=== PATIENT | male | born 1945 | race Caucasian/White ===

== ENCOUNTER → 2019-05-21 14:19 | Outpatient (BNVA) | payer MEDICARE, SELFPAY | PROVIDERS: Family Provider Nurse Practitioner Family; PCP Family Medicine; Visit Provider Nurse Practitioner Family | DX: N39.0 Urinary tract infection, site not specified (principal) | CPT/HCPCS: 81001; 81003 ==

== ENCOUNTER 2019-06-27 09:36 | Outpatient (RCR) | payer MEDICARE, MEDICAID, SELFPAY | END 2019-06-28 23:59 | disposition home or self-care (01) | LOC: WOUND 09:36 | PROVIDERS: PCP Family Medicine; Visit Provider Surgery | DX: I96 Gangrene, not elsewhere classified (principal); L97.522 Non-pressure chronic ulcer of other part of left foot with fat layer exposed | CPT/HCPCS: 11042; 99203; G0463; L3260 ==

== ENCOUNTER → 2019-07-01 10:21 | Outpatient (BNVA) | payer MEDICARE, MEDICAID, SELFPAY | PROVIDERS: PCP Family Medicine; Visit Provider Surgery | DX: L97.529 Non-pressure chronic ulcer of other part of left foot with unspecified severity (principal); M77.32 Calcaneal spur, left foot | CPT/HCPCS: 73630; 80053; 83036; 85025 ==

== ENCOUNTER 2019-07-25 10:10 | Outpatient (RCR) | payer MEDICARE, MEDICAID, SELFPAY | END 2019-07-29 23:59 | disposition home or self-care (01) | LOC: WOUND 10:10 | PROVIDERS: PCP Family Medicine; Visit Provider Surgery | DX: L97.422 Non-pressure chronic ulcer of left heel and midfoot with fat layer exposed (principal) | CPT/HCPCS: 11042; 97597 ==

== ENCOUNTER 2019-08-08 09:38 | Outpatient (RCR) | payer MEDICARE, MEDICAID, SELFPAY | END 2019-08-28 23:59 | disposition home or self-care (01) | LOC: WOUND 09:38 | PROVIDERS: PCP Family Medicine; Visit Provider Surgery | DX: I96 Gangrene, not elsewhere classified (principal); L97.522 Non-pressure chronic ulcer of other part of left foot with fat layer exposed | CPT/HCPCS: 11042; 99212 ==

== ENCOUNTER 2019-11-04 14:21 | Outpatient (CLI) | payer MEDICARE, MEDICAID, SELFPAY | END 2019-11-04 14:22 | disposition home or self-care (01) | LOC: SPT 14:21 | PROVIDERS: PCP Family Medicine; Visit Provider Podiatrist Foot & Ankle Surgery | DX: Z46.89 Encounter for fitting and adjustment of other specified devices (principal); L97.522 Non-pressure chronic ulcer of other part of left foot with fat layer exposed | CPT/HCPCS: 97760; L4361 ==

== ENCOUNTER 2019-12-11 10:54 | Outpatient (CLI) | payer MEDICARE, MEDICAID, SELFPAY | END 2019-12-11 10:55 | disposition home or self-care (01) | LOC: SPT 10:55 | PROVIDERS: PCP Family Medicine; Visit Provider Podiatrist Foot & Ankle Surgery | DX: Z46.89 Encounter for fitting and adjustment of other specified devices (principal); L97.522 Non-pressure chronic ulcer of other part of left foot with fat layer exposed | CPT/HCPCS: 97760; L4361 ==

== ENCOUNTER → 2020-02-02 13:59 | Outpatient (BNVA) | payer MEDICARE, MEDICAID, SELFPAY | PROVIDERS: PCP Family Medicine; Visit Provider Family Medicine | DX: I10 Essential (primary) hypertension (principal); E78.5 Hyperlipidemia, unspecified; K21.9 Gastro-esophageal reflux disease without esophagitis | CPT/HCPCS: 80053; 80061; 85025 ==

== ENCOUNTER → 2020-07-27 10:34 | Outpatient (BNVA) | payer MEDICARE, MEDICAID, SELFPAY | PROVIDERS: PCP Family Medicine; Visit Provider Family Medicine | DX: E78.5 Hyperlipidemia, unspecified (principal); I10 Essential (primary) hypertension; K21.9 Gastro-esophageal reflux disease without esophagitis; G62.9 Polyneuropathy, unspecified | CPT/HCPCS: 80053; 80061; 84443; 85025 ==

== ENCOUNTER → 2020-11-22 17:04 | Outpatient (BNVA) | payer MEDICARE, MEDICAID, SELFPAY | PROVIDERS: PCP Family Medicine; Visit Provider Family Medicine | DX: R30.0 Dysuria (principal); N39.0 Urinary tract infection, site not specified; N41.0 Acute prostatitis | CPT/HCPCS: 81000 ==

== ENCOUNTER → 2021-02-14 15:53 | Outpatient (BNVA) | payer MEDICARE, MEDICAID, SELFPAY | PROVIDERS: PCP Family Medicine | DX: I10 Essential (primary) hypertension (principal); R30.0 Dysuria; N40.0 Benign prostatic hyperplasia without lower urinary tract symptoms; N41.0 Acute prostatitis; N39.0 Urinary tract infection, site not specified | CPT/HCPCS: 80053; 81000; 85025 ==

== ENCOUNTER 2021-05-30 18:24 | Emergency (ER) | payer MEDICARE, MEDICAID, SELFPAY ==
[2021-05-30 18:38] VITALS: BP 172/89; PULSE 89; RESP 19; TEMP 36.8; O2SAT 97; BMI 24.0
--- NOTE | 2021-05-30 18:55 | CTR_ITS ---
PROCEDURE INFORMATION: Exam: CT Abdomen And Pelvis With Contrast Exam date and time: 05/30/2021 6:55 PM Age: 75 years old Clinical indication: Abdominal pain; Additional info: Groin pain R side, prosthetic testicles TECHNIQUE: Imaging protocol: Computed tomography of the abdomen and pelvis with contrast. Radiation optimization: All CT scans at this facility use at least one of these dose optimization techniques: automated exposure control; mA and/or kV adjustment per patient size (includes targeted exams where dose is matched to clinical indication); or iterative reconstruction. Contrast material: OMNI 300; Contrast volume: 95 ml; Contrast route: INTRAVENOUS (IV); COMPARISON: CR Hip 2-3v LEFT wwo Pelv* [id number] 01/24/2017 2:01 PM RADIATION DOSE METRICS: Total DLP (mGy-cm): 1625.38 FINDINGS: Heart: Partially visualized calcified plaques in the coronary arteries. Liver: Normal. No mass. Gallbladder and bile ducts: Normal. No calcified stones. No ductal dilation. Pancreas: Normal. No ductal dilation. Spleen: Normal. No splenomegaly. Adrenal glands: Normal. No mass. Kidneys and ureters: Several bilateral simple renal cysts measuring no more than 1 cm. Early excretion of renal contrast limits evaluation for nonobstructing stones. Stomach and bowel: There are numerous noninflamed diverticula in the distal colon. Appendix: No evidence of appendicitis. Intraperitoneal space: Unremarkable. No free air. No significant fluid collection. Vasculature: Unremarkable. No abdominal aortic aneurysm. Lymph nodes: Unremarkable. No enlarged lymph nodes. Urinary bladder: Unremarkable as visualized. Reproductive: The testes are partially seen and both have rim calcification. Bones/joints: Chronic lower lumbar degenerative disc disease. Right hip primary osteoarthritis is noted. A right hip moderate joint effusion is of uncertain significance. Soft tissues: Unremarkable. CT/CT abdomen pelvis w con* [id number] IMPRESSION: 1. Right hip joint effusion of uncertain significance. Primary osteoarthritis is present. No fracture or bone destruction. 2. Colonic diverticulosis. 3. Other chronic and incidental findings as described.
--- NOTE | 2021-05-30 19:18 | ED_ITS ---
HPI - General Adult General: Chief complaint: Urogenital-Male Stated complaint: SWOLLEN TESTICLE Time Seen by Provider: 05/30/21 18:29 History of Present Illness: Patient is a 75-year-old male with a history of bilateral testicular prosthesis presenting to the emergency room for evaluation of right-sided groin pain. Patient states the pain has been going on for last 4 days. Patient was at home when he thinks that he was pulled by one of his dogs and then patient strained his right groin. Patient has since then reported right-sided groin pain with testicular swelling. Patient denies any new penile discharge, fever/chills, nausea/vomiting, lower abdominal, type diarrhea, melena or hematochezia. No other focal urinary complaints including hematuria or dysuria. Onset:4 days ago Duration:4 days Location:home Severity:moderate Associated symptoms: Deny chest pain, dyspnea, nausea, rash, palpitations or vomiting Review of Systems Const: Denies: fever(s) or chills Eyes: Denies: change in vision ENMT: Denies: mouth pain Card: Denies: chest pain or palpitations Resp: Denies: dyspnea or non-productive cough GI: Denies: abdominal pain, nausea, vomiting or diarrhea : Reports: other (+R sided groin pain and testicular swelling); Denies: dysuria Musc: Denies: extremity pain Skin/Breast: Denies: rash or new lesions Neuro: Denies: weakness in extremities Psych: Reports: other (Normal mood) Dylan/Lymph: Denies: easy bruising PFSH ED PFSH: Medical History CAD (coronary artery disease) DJD (degenerative joint disease) Dyslipidemia Essential hypertension GERD (gastroesophageal reflux disease) Hammer toe History of amputation of right great toe Neuropathy Psoriasis Family History Father Dementia Mother Cancer BRAIN TUMOR Social History Lives independently: Yes Household members: spouse Marital status: Current occupational status: retired Pets and animals: Yes History of recent travel: No Current gender identity: Male Physical Exam Const: COMMON NORMALS: alert HENMT: COMMON NORMALS: atraumatic HEAD & SCALP: atraumatic MOUTH: moist mucous membranes not abnormal Eye: COMMON NORMALS: EOMs intact bilaterally and conjunctivae normal CONJUNCTIVA: Yes conjunctivae normal Neck/C-Spine: COMMON NORMALS: full ROM and supple Resp: COMMON NORMALS: normal respiratory effort and clear to auscultation bilaterally AUSCULTATION: clear to auscultation bilaterally Cardio: COMMON NORMALS: regular rate RATE: regular rate GI: COMMON NORMALS: Soft to palpation and non-tender PALPATION: Yes Soft to palpation : OTHER: +R groin tenderness to palpation, no visible testicular swelling, no erythema. Extremity: COMMON NORMALS: full ROM Neuro: SENSORIUM/ORIENTATION: Yes alert MOTOR EXAM: No Abnormal motor strength present and Other motor observations present (no focal motor deficits) Psych: COMMON NORMALS: speech normal SPEECH: Yes normal speech MOOD & AFFECT: Yes euthymic mood Course Vital Signs: Vital signs: Vital Signs Temperature 98.2 F 05/30/21 18:38 Pulse Rate 89 05/30/21 18:38 Respiratory Rate 22 H 05/30/21 19:46 Blood Pressure 172/89 05/30/21 18:38 Pulse Oximetry 97 05/30/21 18:38 MDM - General Adult Medical Decision Making 75-year-old male with history of bilateral testicular prosthesis presenting to the emergency room for evaluation of right groin pain x4 days. Exam, patient has mild right pelvic tenderness. No visible hernia. No testicular erythema observed. Workup: CBC, CMP, lipase, UA, CT abdomen pelvis Leukocytosis, UA clear for any acute findings. CT abdomen+pelvis showed right hip effusion. In the setting of no fever, no leukocytosis, perfect range of motion of the right hip, no suspicion that this is septic joint. Pain is control led with medication in the ED. Rx: Tylenol, lidocaine patch, menthol as needed pain I have given patient follow up with our leather case finisher to be seen by our outpatient Urology for pain. Patient aware of a call from our leather case finisher to schedule for appointment(s) and verbalizes understanding of the importance of following up. Disposition: Discharge. Patient counseled regarding diagnostic impression, treatment plan. Patient given ED strict return precautions to return for continuation, worsening, or development of new symptoms. Instructed to f/u w/ PCP and Urology regarding symptoms today. Patient verbalized understanding. Lab Data : 05/30/21 20:04 05/30/21 20:04 Radiology Impressions Abdomen/Pelvis CT 05/30/21 18:55 IMPRESSION: 1. Right hip joint effusion of uncertain significance. Primary osteoarthritis is present. No fracture or bone destruction. 2. Colonic diverticulosis. 3. Other chronic and incidental findings as described. Laboratory Results WBC 7.4 10^3/uL (4.0-10.0) 05/30/21 20:04 RBC 3.87 10^6/uL (4.1-5.3) L 05/30/21 20:04 Hgb 10.9 g/dL (11.7-16.6) L 05/30/21 20:04 Hct 32.4 % (42.0-52.0) L 05/30/21 20:04 MCV 83.7 fl (80-94) 05/30/21 20:04 MCH 28.2 pg (28.0-34.0) 05/30/21 20:04 MCHC 33.6 g/dL (30.0-36.0) 05/30/21 20:04 RDW 15.0 % (12.1-15.1) 05/30/21 20:04 Plt Count 250 10^3/cmm (130-400) 05/30/21 20:04 MPV 9.9 fL (7.4-10.4) 05/30/21 20:04 Neut % (Auto) 75.9 % 05/30/21 20:04 Lymph % (Auto) 12.5 % 05/30/21 20:04 [place] % (Auto) 10.6 % 05/30/21 20:04 Eos % (Auto) 0.1 % 05/30/21 20:04 Baso % (Auto) 0.5 % 05/30/21 20:04 Neut # (Auto) 5.57 10^3/uL (1.8-7.7) 05/30/21 20:04 Lymph # (Auto) 0.9 10^3/uL (0.8-4.8) 05/30/21 20:04 [place] # (Auto) 0.8 10^3/uL (0.2-0.9) 05/30/21 20:04 Eos # (Auto) 0.0 10^3/uL (0.0-0.8) 05/30/21 20:04 Baso # (Auto) 0.0 10^3/uL (0.0-0.1) 05/30/21 20:04 Nucleated RBC % (auto) 0 % 05/30/21 20:04 Nucleated RBCs # 0.0 /100WBC 05/30/21 20:04 Sodium 122 mmol/L (136-145) L 05/30/21 20:04 Sodium Cancelled 05/30/21 20:04 Potassium 5.1 mmol/L (3.5-5.1) 05/30/21 20:04 Potassium Cancelled 05/30/21 20:04 Chloride 94 mmol/L (98-107) L 05/30/21 20:04 Chloride Cancelled 05/30/21 20:04 Carbon Dioxide 20 mmol/L (22-29) L 05/30/21 20:04 Carbon Dioxide Cancelled 05/30/21 20:04 Anion Gap 13.1 (5-19) 05/30/21 20:04 Anion Gap Cancelled 05/30/21 20:04 BUN 22 mg/dL (8-23) 05/30/21 20:04 BUN Cancelled 05/30/21 20:04 Creatinine 1.0 mg/dL (0.7-1.2) 05/30/21 20:04 Creatinine Cancelled 05/30/21 20:04 GFR Calculation Cancelled 05/30/21 20:04 GFR Calculation Not Reportable 05/30/21 20:04 Glucose 93 mg/dL (65-115) 05/30/21 20:04 Glucose Cancelled 05/30/21 20:04 Calculated Osmolality 257 mOsm/kg (285-295) L 05/30/21 20:04 Calculated Osmolality Cancelled 05/30/21 20:04 Calcium 8.6 mg/dL (8.5-10.5) 05/30/21 20:04 Calcium Cancelled 05/30/21 20:04 Total Bilirubin 0.4 mg/dL (0.15-1.2) 05/30/21 20:04 Total Bilirubin Cancelled 05/30/21 20:04 AST 16 U/L (0-40) 05/30/21 20:04 AST Cancelled 05/30/21 20:04 ALT 14 U/L (0-41) 05/30/21 20:04 ALT Cancelled 05/30/21 20:04 Alkaline Phosphatase 90 IU/L (40-130) 05/30/21 20:04 Alkaline Phosphatase Cancelled 05/30/21 20:04 Total Protein 6.4 g/dL (6.6-8.7) L 05/30/21 20:04 Total Protein Cancelled 05/30/21 20:04 Albumin 3.7 g/dL (3.5-5.2) 05/30/21 20:04 Albumin Cancelled 05/30/21 20:04 Globulin 2.7 g/dL (1.3-4.6) 05/30/21 20:04 Globulin Cancelled 05/30/21 20:04 Lipase 24 U/L (13-60) 05/30/21 20:04 Lipase Cancelled 05/30/21 20:04 Urine Color Yellow (Yellow) 05/30/21 19:47 Urine Appearance Clear (CLEAR) 05/30/21 19:47 Urine pH 7 (5-7) 05/30/21 19:47 Ur Specific [place] 1.015 (1.005-1.030) 05/30/21 19:47 Urine Protein Neg (Negative) 05/30/21 19:47 Urine Glucose (UA) Norm (Normal) 05/30/21 19:47 Urine Ketones Negative (Negative) 05/30/21 19:47 Urine Blood Neg (Negative) 05/30/21 19:47 Urine Nitrate Negative (Negative) 05/30/21 19:47 Urine Bilirubin Neg (Negative) 05/30/21 19:47 Urine Urobilinogen Norm mg/dL (Negative) 05/30/21 19:47 Ur Leukocyte Esterase Negative (Negative) 05/30/21 19:47 Imaging Data Other Imaging: Radiologist's impression: [address] [address] [address] Scan Report Signed Patient: Rigo Santiago Unit #: [id number] : 1945 Age/Sex: 75 / M ADM Date: 05/30/21 Loc: ER Room/Bed: Attending Dr: Ordering Provider/Ordering MD: Maria T Mosher MD Date of Service: 05/30/21 Procedure(s): CT abdomen pelvis w con* [id number] Accession Number(s): [id number] Report Number: [id number] PROCEDURE INFORMATION: Exam: CT Abdomen And Pelvis With Contrast Exam date and time: 05/30/2021 6:55 PM Age: 75 years old Clinical indication: Abdominal pain; Additional info: Groin pain R side, prosthetic testicles TECHNIQUE: Imaging protocol: Computed tomography of the abdomen and pelvis with contrast. Radiation optimization: All CT scans at this facility use at least one of these dose optimization techniques: automated exposure control; mA and/or kV adjustment per patient size (includes targeted exams where dose is matched to clinical indication); or iterative reconstruction. Contrast material: OMNI 300; Contrast volume: 95 ml; Contrast route: INTRAVENOUS (IV);? COMPARISON: CR Hip 2-3v LEFT wwo Pelv* [id number] 01/24/2017 2:01 PM RADIATION DOSE METRICS: Total DLP (mGy-cm): 1625.38 FINDINGS: Heart: Partially visualized calcified plaques in the coronary arteries. Liver: Normal. No mass. Gallbladder and bile ducts: Normal. No calcified stones. No ductal dilation. Pancreas: Normal. No ductal dilation. Spleen: Normal. No splenomegaly. Adrenal glands: Normal. No mass. Kidneys and ureters: Several bilateral simple renal cysts measuring no more than 1 cm. Early excretion of renal contrast limits evaluation for nonobstructing stones. Stomach and bowel: There are numerous noninflamed diverticula in the distal colon. Appendix: No evidence of appendicitis. Intraperitoneal space: Unremarkable. No free air. No significant fluid collection. Vasculature: Unremarkable. No abdominal aortic aneurysm. Lymph nodes: Unremarkable. No enlarged lymph nodes. Urinary bladder: Unremarkable as visualized. Reproductive: The testes are partially seen and both have rim calcification. Bones/joints: Chronic lower lumbar degenerative disc disease. Right hip primary osteoarthritis is noted. A right hip moderate joint effusion is of uncertain significance. Soft tissues: Unremarkable. CT/CT abdomen pelvis w con* [id number] IMPRESSION: 1. Right hip joint effusion of uncertain significance. Primary osteoarthritis is present. No fracture or bone destruction. 2. Colonic diverticulosis. 3. Other chronic and incidental findings as described. ? Dictated By: Rafael Almonte MD Signed By: Rafael Almonte MD Signed Date/Time: 05/30/21 8327 DD/ 271 Discharge Plan Discharge Patient Disposition: Home Clinical Impression: Groin pain Condition: Stable Prescriptions: New acetaminophen 500 mg tablet 500 mg PO Q6H PRN (Reason: pain) 5 Days Qty: 20 0RF lidocaine 5 % adhesive patch,medicated 1 patch topical DAILY PRN (Reason: pain) 10 Days Qty: 10 0RF Rx Instructions: leave on most painful area for up to 12 hrs Biofreeze (menthol) 5 % gel 1 ea topical BID PRN (Reason: pain) 10 Days Qty: 1 0RF No Action (DME) Diabetic Shoes See Rx Instructions .ROUTE .MEDSUPPLY Qty: 1 0RF Rx Instructions: As directed tamsulosin [Flomax] 0.4 mg capsule 0.4 mg PO DAILY 30 Days Qty: 30 0RF aspirin 325 mg tablet 325 mg PO BID 0RF atorvastatin 40 mg tablet See Rx Instructions .ROUTE .COMPLEX Qty: 60 4RF Dose Instruction: TAKE ONE TABLET BY MOUTH EVERY DAY Rx Instructions: TAKE ONE TABLET BY MOUTH EVERY DAY isosorbide mononitrate 30 mg tablet extended release 24 hr See Rx Instructions .ROUTE .COMPLEX Qty: 30 3RF Dose Instruction: TAKE ONE TABLET BY MOUTH EVERY DAY Rx Instructions: TAKE ONE TABLET BY MOUTH EVERY DAY loratadine [Allergy Relief (loratadine)] 10 mg tablet 10 mg PO DAILY Qty: 30 4RF omeprazole 20 mg capsule,delayed release(DR/EC) 20 mg PO DAILY Qty: 90 4RF Rx Instructions: REPLACES RANITIDINE metoprolol tartrate 50 mg tablet See Rx Instructions .ROUTE .COMPLEX Qty: 60 5RF Dose Instruction: TAKE ONE TABLET BY MOUTH TWICE DAILY Rx Instructions: TAKE ONE TABLET BY MOUTH TWICE DAILY amlodipine 2.5 mg tablet See Rx Instructions .ROUTE .COMPLEX Qty: 30 5RF Dose Instruction: TAKE ONE TABLET BY MOUTH EVERY DAY Rx Instructions: TAKE ONE TABLET BY MOUTH EVERY DAY lisinopril 20 mg tablet See Rx Instructions .ROUTE .COMPLEX Qty: 60 5RF Dose Instruction: TAKE ONE TABLET BY MOUTH TWICE DAILY Rx Instructions: TAKE ONE TABLET BY MOUTH TWICE DAILY gabapentin 300 mg capsule See Rx Instructions .ROUTE .COMPLEX Qty: 90 2RF Dose Instruction: TAKE ONE CAPSULE BY MOUTH THREE TIMES DAILY Rx Instructions: TAKE ONE CAPSULE BY MOUTH THREE TIMES DAILY tizanidine 4 mg tablet See Rx Instructions .ROUTE .COMPLEX Qty: 60 2RF Dose Instruction: TAKE ONE TABLET BY MOUTH TWICE DAILY NEEDED FOR muscle spasiticy Rx Instructions: TAKE ONE TABLET BY MOUTH TWICE DAILY NEEDED FOR muscle spasiticy Discharge Orders: Discharge ED (Routine); Ordered 05/30/21 Ordered By: Maria T Mosher Referrals: Mayra Powell MD [Primary Care Provider] - Discharge Diet: Advance as tolerated Discharge Activity: Increase activity as tolerated Patient Instructions: Groin Pain (ED) Activity Restrictions/Additional Instructions: Come back to the emergency room have any fever chills, new pain or drainage, worsening groin pain, redness, or any new or concerning complaints. Our leather case finisher will have you follow-up with Dr. Lobo in the next few days for groin pain. You would be expected to have a phone call with our leather case finisher who will put you on the schedule. Coding Level of Care Code ED Ambulatory Care Coordinator for Debra Fwalonzo Exam Comprehensive
[2021-05-30 19:46] VITALS: RESP 22
[2021-05-30] MEDS: acetaminophen 500 mg Tablet PO (19:46)
[2021-05-30] MEDS: morphine 4 mg/mL SDV 1 mL IVP (19:46)
[2021-05-30 19:52] LABS: Add Urine Microscopic? NO; Charge for UA Resulting for Rev
[2021-05-30 19:53] LABS: Bilirubin Urine Neg (Negative); Blood Urine Neg (Negative); Glucose Urine UA Norm (Normal); Ketones Urine Negative (Negative); Leukocyte Esterase Urine Negative (Negative); Nitrate Urine Negative (Negative); Protein Urine Neg (Negative); Specific Gravity, Urine 1.015 (1.005-1.030); Urine Appearance Clear (CLEAR); Urine Color Yellow (Yellow); Urobilinogen Urine Norm (Negative); pH Urine 7 (5-7)
[2021-05-30 20:16] LABS: Basophils % 0.5 %; Eosinophils % 0.1 %; Hematocrit 32.4 % (42.0-52.0); Hemoglobin 10.9 g/dL (11.7-16.6); Lymphocytes # 0.9 10^3/uL (0.8-4.8); Lymphocytes % 12.5 %; Mean Corpuscular HGB Conc 33.6 g/dL (30.0-36.0); Mean Corpuscular Hemoglobin 28.2 pg (28.0-34.0); Mean Corpuscular Volume 83.7 fl (80-94); Mean Platelet Volume 9.9 fL (7.4-10.4); Monocytes # 0.8 10^3/uL (0.2-0.9); Monocytes % 10.6 %; Neutrophils # 5.57 10^3/uL (1.8-7.7); Neutrophils % 75.9 %; Nucleated Red Blood Cells % 0 %; Platelet Count 250 10^3/cmm (130-400); Red Blood Count 3.87 10^6/uL (4.1-5.3); White Blood Count 7.4 10^3/uL (4.0-10.0)
[2021-05-30 21:55] LABS: Alanine Aminotransferase 14 U/L (0-41); Albumin Level 3.7 g/dL (3.5-5.2); Alkaline Phosphatase 90 IU/L (40-130); Anion Gap 13.1 (5-19); Aspartate Amino Transferase 16 U/L (0-40); Blood Urea Nitrogen 22 mg/dL (8-23); Calcium 8.6 mg/dL (8.5-10.5); Carbon Dioxide 20 mmol/L (22-29); Chloride 94 mmol/L (98-107); Globulin 2.7 g/dL (1.3-4.6); Glucose 93 mg/dL (65-115); Lipase 24 U/L (13-60); Osmolality Calculated 257 mOsm/kg (285-295); Potassium 5.1 mmol/L (3.5-5.1); Sodium 122 mmol/L (136-145); Total Bilirubin 0.4 mg/dL (0.15-1.2); Total Protein 6.4 g/dL (6.6-8.7)
[2021-05-30] MEDS: iohexol 300 mg/mL 100 mL Btl IV (22:12)
--- NOTE | 2021-05-31 07:57 | DCPLANNER ---
Addendum entered by Kyara Delgado 06/24/21 11:49: Patient had a follow up appointment scheduled for 06.21.[address] Lobo - patient did not attend appointment. Addendum entered by Kyara Delgado 06/10/21 07:44: Patient has a followup appointment scheduled for Monday, June 21, 2021 at 1:[address] Lobo. Clinic will call patient with appointment information. Original Note: global sourcing manager had message to schedule a follow up appointment for patient with Dr. Lobo. global sourcing manager emailed patients information to Antonio Thompson at the office of Dr. Lobo. Patients information will be printed and reviewed. Clinic will call patient with appointment information.
== END 2021-05-30 23:17 | disposition home or self-care (01) ==
PROVIDERS: Emergency Provider Emergency Medicine; PCP Family Medicine
DX: R10.31 Right lower quadrant pain (principal); I25.10 Atherosclerotic heart disease of native coronary artery without angina pectoris; E78.5 Hyperlipidemia, unspecified; I10 Essential (primary) hypertension; Z96.89 Presence of other specified functional implants; Z79.82 Long term (current) use of aspirin
CPT/HCPCS: 36415; 74177; 80053; 81003; 83690; 85025; 96374; 99284; J2270; Q9967

== ENCOUNTER → 2021-10-06 11:28 | Outpatient (BNVA) | payer MEDICARE, MEDICAID, SELFPAY | PROVIDERS: PCP Family Medicine; Visit Provider Nurse Practitioner Family | DX: M25.562 Pain in left knee (principal); M25.561 Pain in right knee; F17.200 Nicotine dependence, unspecified, uncomplicated; I10 Essential (primary) hypertension; E78.5 Hyperlipidemia, unspecified; R53.83 Other fatigue; Z79.899 Other long term (current) drug therapy | CPT/HCPCS: 71047; 73562; 80053; 80061; 82607; 82746; 83036; 85651; 86140; 86200; 86431; 86705; 86706; 86709; 86803; 87340; G0103 ==

== ENCOUNTER → 2021-10-07 08:25 | Outpatient (BNVA) | payer MEDICARE, MEDICAID, SELFPAY | PROVIDERS: PCP Family Medicine; Visit Provider Nurse Practitioner Family | DX: D64.9 Anemia, unspecified (principal); F10.20 Alcohol dependence, uncomplicated | CPT/HCPCS: 82607; 82746 ==

== ENCOUNTER 2021-10-09 12:07 | Emergency (ER) | payer MEDICARE, MEDICAID, SELFPAY ==
[2021-10-09] VITALS (8 sets, daily range): BP systolic 79–146; BP diastolic 33–87; PULSE 89–95; RESP 16–23; TEMP 37.4; O2SAT 97–100; BMI 24.8
--- NOTE | 2021-10-09 12:17 | XRR_ITS ---
PROCEDURE INFORMATION: Exam: XR Right Knee Exam date and time: 10/09/2021 12:50 PM Age: 75 years old Clinical indication: Injury or trauma; Fall; Blunt trauma; Knee; Right; Additional info: Knee pain TECHNIQUE: Imaging protocol: XR Right knee. Views: 3 views. COMPARISON: CR XR knee RT 3V* [id number] 10/06/2021 11:47 AM FINDINGS: Bones/joints: A large joint effusion is present with fluid in the suprapatellar bursa. No fracture, dislocation or other acute bone or joint abnormality. Moderate degenerative changes are present with osteophytes sclerosis and joint space narrowing. Soft tissues: There is soft tissue swelling anterior to the knee. XR/XR knee RT 3V* [id number] IMPRESSION: 1. Joint effusion. 2. No acute bony abnormality.
--- NOTE | 2021-10-09 13:08 | W.ED.FALL ---
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 He apparently had gotten out of bed and was transferring to his wheelchair and was turning to sit in his wheelchair and apparently had a syncopal episode and fell to the floor. He states he has pain in his right knee. He did not hit his head or suffer any other injury. He is apparently started on a new medication recently and has been making him dizzy. He apparently also takes antihypertensives. There has been a question of having low blood pressure over the last few weeks. He denies any chest pain shortness of breath etc. He has drank part of a couple coffee today but not much else in the way of liquids or solids. He has not had any nausea vomiting or diarrhea or recent illness. There is no chest pain palpitations etc. as a prodrome to his current event. At triage patient was noted to have a low blood pressure and therefore was transitioned to the main ED. complaint: fall Fall from: standing Fall witnessed: no Place fall occurred: home Loss of consciousness: Seconds Length of LOC: second(s) Location of injury - extremities: Right: knee Severity: moderate Quality: aching Associated symptoms-after fall: Reports no associated symptoms; Denies abdominal pain, chest pain, headache(s) or neck pain Review of Systems Const: Denies: fever(s) or chills Eyes: Denies: change in vision or blurry vision ENMT: Denies: throat pain or odynophagia Card: Denies: chest pain, palpitations, irregular heart rhythm or edema Resp: Denies: dyspnea, productive cough or non-productive cough GI: Denies: abdominal pain, nausea or vomiting : Denies: flank pain, difficulty urinating or dysuria Musc: Reports: joint pain; Denies: neck pain or back pain Skin/Breast: Reports: non-healing lesions (Left plantar foot) Neuro: Reports: numbness in extremities and dizziness; Denies: headache(s) or weakness in extremities Psych: Denies: anxiety or depression Endo: Denies: polyuria or polydipsia Dylan/Lymph: Denies: easy bruising or easy bleeding PFSH ED PFSH: Medical History (Updated 10/09/21 @ 16:26 by Neftali Wright DO) CAD (coronary artery disease) DJD (degenerative joint disease) Dyslipidemia Essential hypertension GERD (gastroesophageal reflux disease) Hammer toe History of amputation of right great toe Neuropathy Psoriasis Family History Father Dementia Mother Cancer BRAIN TUMOR Social History Smoking and tobacco status: never smoked Lives independently: Yes Household members: spouse Marital status: Current occupational status: retired Pets and animals: Yes History of recent travel: No Current gender identity: Male Physical Exam Narrative: EXAM NARRATIVE: Patient is alert in no acute distress and interactive. Const: COMMON NORMALS: no acute distress, patient oriented x3, no limitations and alert HENMT: COMMON NORMALS: normocephalic, atraumatic, Normal nasal mucous membranes and turbinates present, moist oral mucous membranes and oropharynx normal HEAD & SCALP: normocephalic and atraumatic FACE & SINUS: normal facial exam NOSE: Normal nasal mucous membranes and turbinates present Eye: COMMON NORMALS: Equal, round and reactive pupils present, EOMs intact bilaterally and conjunctivae normal CONJUNCTIVA: Yes conjunctivae normal PUPIL: Yes Equal, round and reactive pupils present Neck/C-Spine: COMMON NORMALS: no lymphadenopathy, no JVD and No carotid bruits CERVICAL SPINE: Yes cervical ROM normal, Yes normal cervical lordosis, No step off deformity, No Paracervical muscle tenderness, No Paracervical spasm and No Trapezius muscle tenderness OTHER: He is able to range his head neck 45 degrees left and right 15 degrees extension and flexion without any difficulty or pain. No midline tenderness. No step-off. Chest: COMMONS NORMALS: normal inspection of the chest and normal palpation of entire chest wall Resp: COMMON NORMALS: normal respiratory effort, No retractions, No use of accessory muscles and clear to auscultation bilaterally AUSCULTATION: clear to auscultation bilaterally Cardio: COMMON NORMALS: no JVD, regular rate, regular rhythm, No murmurs present (Cardio) and Peripheral pulses 2+ throughout RATE: regular rate RHYTHM: regular rhythm PERIPHERAL PULSES: Peripheral pulses 2+ throughout GI: COMMON NORMALS: Normal to inspection, nondistended, normoactive bowel sounds present, Soft to palpation and non-tender PALPATION: Yes Soft to palpation : COMMON NORMALS: Yes no CVA tenderness BLADDER/KIDNEY EXAM: Yes no CVA tenderness Back/Pelvis: COMMON NORMALS: no CVA tenderness, thoracic and lumbar spine normal to inspection, no thoracic nor lumbar tenderness and thoraco-lumbar ROM normal Extremity: NARRATIVE EXTREMITY EXAM: Patient's extremity examination is unremarkable for both upper extremities there is no deformity and he has full range of motion without tenderness. His right lower extremity is remarkable for some swelling of the soft tissues surrounding the right knee. He has tenderness to palpation over the lateral portion of the right knee. He has intact patellar tendon function and quadricep tendon function. The remainder of the right lower extremity is remarkable only that he has a great toe amputation. His left lower extremity reveals no limitations in range of motion no tenderness. He does have a possibly 2 cm ulcer with a clear base at the plantar surface overlying the metatarsal head of the left foot. There is no proximal lymphangitis or lymphadenopathy. Neuro: COMMON NORMALS: patient oriented x3, moves all extremities and no focal motor deficits SENSORIUM/ORIENTATION: Yes alert SPEECH: speech normal SENSORY EXAM: Yes extremities (Decrease sensation both feet and ankle region.) Psych: COMMON NORMALS: mental status grossly normal and Normal thought process present THOUGHT PROCESS: Normal thought process present Skin: COMMON NORMALS: no rashes or lesions noted and turgor normal NARRATIVE SKIN EXAM: Left foot plantar ulcer as noted in extremity examination. GENERAL SKIN EXAM: no rashes or lesions noted and turgor normal Course Reevaluation(s): Reevaluation #1: The patient's vital signs been stable after liter of fluids. He has not had any other subjective symptoms. His work-up here reveals no evidence of fracture of the femur or hip or knee. He likely has some internal derangement or strain due to his fall but certainly no evidence of any issue at this time that needs immediate care. We will place him in a knee immobilizer for comfort and advised him to remove that frequently throughout the day and as it improves. We have also noted that his anemia has been present although it is seemingly a little more anemic today than in the past. He denies any melena bright red blood or etc. I advised him that he needs to get that rechecked in his primary care clinic and consider additional work-up to include colonoscopy etc. Both he and his survey questionnaire designer acknowledge this. His sodium is chronically low. I think this is likely a factor in combination with his multiple antihypertensives for his weakness. In addition to his anemia. In light of that I think we will discontinue his lisinopril temporarily and continue on his amlodipine and metoprolol as well as tamsulosin. We will also contact case management for wound care follow-up for his plantar ulcer. Both he and his survey questionnaire designer acknowledged our discussion. Stable for discharge at this time. Time: 16:23 Vital Signs: Vital signs: Vital Signs Temperature 99.4 F 10/09/21 12:32 Pulse Rate 93 10/09/21 15:44 Respiratory Rate 21 H 10/09/21 15:44 Blood Pressure 144/80 10/09/21 15:44 Pulse Oximetry 97 10/09/21 15:44 MDM - Fall Medical Decision Making Patient presents to our emergency department with a history of a fall with right knee injury and notable hypotension at triage. He was given IV fluids and evaluated in the emergency department. No evidence of fracture on the right lower extremity noted. He likely has a knee strain best or at worst possible meniscal tear etc. He will need to be followed up. He also has other chronic issues such as anemia, hyponatremia, a left plantar ulcer. No evidence of acute blood loss or other acute change at this time but will drop off his lisinopril as I think his AAA and antihypertensive therapy may be contributing to his weakness and lightheadedness and low blood pressure. Medical Records I reviewed the patient's medical records. Lab Data I reviewed the patient's lab results. : 10/09/21 13:05 10/09/21 13:05 Radiology Impressions Knee X-Ray 10/09/21 12:17 IMPRESSION: 1. Joint effusion. 2. No acute bony abnormality. Femur X-Ray 10/09/21 15:10 IMPRESSION: No acute findings. Laboratory Results WBC 8.5 10^3/uL (4.0-10.0) 10/09/21 13:05 RBC 3.65 10^6/uL (4.1-5.3) L 10/09/21 13:05 Hgb 9.5 g/dL (11.7-16.6) L 10/09/21 13:05 Hct 28.6 % (42.0-52.0) L 10/09/21 13:05 MCV 78.4 fl (80-94) L 10/09/21 13:05 MCH 26.0 pg (28.0-34.0) L 10/09/21 13:05 MCHC 33.2 g/dL (30.0-36.0) 10/09/21 13:05 RDW 17.0 % (12.1-15.1) H 10/09/21 13:05 Plt Count 230 10^3/cmm (130-400) 10/09/21 13:05 MPV 11.4 fL (7.4-10.4) H 10/09/21 13:05 Neut % (Auto) 86.6 % 10/09/21 13:05 Lymph % (Auto) 5.7 % 10/09/21 13:05 [place] % (Auto) 7.1 % 10/09/21 13:05 Eos % (Auto) 0.0 % 10/09/21 13:05 Baso % (Auto) 0.2 % 10/09/21 13:05 Neut # (Auto) 7.33 10^3/uL (1.8-7.7) 10/09/21 13:05 Lymph # (Auto) 0.5 10^3/uL (0.8-4.8) L 10/09/21 13:05 [place] # (Auto) 0.6 10^3/uL (0.2-0.9) 10/09/21 13:05 Eos # (Auto) 0.0 10^3/uL (0.0-0.8) 10/09/21 13:05 Baso # (Auto) 0.0 10^3/uL (0.0-0.1) 10/09/21 13:05 Nucleated RBC % (auto) 0 % 10/09/21 13:05 Nucleated RBCs # 0.0 /100WBC 10/09/21 13:05 Sodium 124 mmol/L (136-145) L 10/09/21 13:05 Potassium 4.8 mmol/L (3.5-5.1) 10/09/21 13:05 Chloride 94 mmol/L (98-107) L 10/09/21 13:05 Carbon Dioxide 17 mmol/L (22-29) L 10/09/21 13:05 Anion Gap 17.8 (5-19) 10/09/21 13:05 BUN 22 mg/dL (8-23) 10/09/21 13:05 Creatinine 1.1 mg/dL (0.7-1.2) 10/09/21 13:05 GFR Calculation Not Reportable 10/09/21 13:05 Glucose 101 mg/dL (65-115) 10/09/21 13:05 Calculated Osmolality 261 mOsm/kg (285-295) L 10/09/21 13:05 Calcium 8.9 mg/dL (8.5-10.5) 10/09/21 13:05 Total Bilirubin 0.7 mg/dL (0.15-1.2) 10/09/21 13:05 AST 16 U/L (0-40) 10/09/21 13:05 ALT 14 U/L (0-41) 10/09/21 13:05 Alkaline Phosphatase 80 IU/L (40-130) 10/09/21 13:05 Total Protein 6.2 g/dL (6.6-8.7) L 10/09/21 13:05 Albumin 3.7 g/dL (3.5-5.2) 10/09/21 13:05 Globulin 2.5 g/dL (1.3-4.6) 10/09/21 13:05 EKG Data EKG 1: I personally reviewed and interpreted this EKG as follows: Interpretation: Resting EKG reveals a ventricular rate of 78 bpm. Consistent with normal sinus rhythm. He has a normal NV interval. Normal QRS duration. Normal QTC. [place] are normal. No evidence of acute ST-T wave changes. He does have baseline irritability most pronounced in limb lead II and I. Discharge Plan Discharge Patient Disposition: Home Clinical Impression: Left knee injury, Foot ulcer, left, Hyponatremia, Anemia Condition: Stable Prescriptions: No Action (DME) Diabetic Shoes See Rx Instructions .ROUTE .MEDSUPPLY Qty: 1 0RF Rx Instructions: As directed aspirin 325 mg tablet 325 mg PO BID 0RF amlodipine 2.5 mg tablet 2.5 mg PO DAILY 90 Days Qty: 90 1RF atorvastatin 40 mg tablet 40 mg PO DAILY 90 Days Qty: 90 1RF gabapentin 300 mg capsule 300 mg PO TID 90 Days Qty: 270 1RF isosorbide mononitrate 30 mg tablet extended release 24 hr 30 mg PO DAILY 90 Days Qty: 90 1RF lisinopril 20 mg tablet 20 mg PO DAILY 90 Days Qty: 90 1RF loratadine [Allergy Relief (loratadine)] 10 mg tablet 10 mg PO DAILY 90 Days Qty: 90 1RF metoprolol tartrate 50 mg tablet 50 mg PO DAILY 90 Days Qty: 90 1RF omeprazole 20 mg capsule,delayed release(DR/EC) 20 mg PO DAILY 90 Days Qty: 90 1RF tamsulosin [Flomax] 0.4 mg capsule 0.4 mg PO DAILY 90 Days Qty: 90 1RF tizanidine 4 mg tablet 4 mg PO TID PRN (Reason: muscle spasticity) 90 Days Qty: 270 1RF sodium chloride 1 gram tablet 1,000 mg PO DAILY 90 Days Qty: 90 1RF Discharge Orders: Discharge ED (Routine); Ordered 10/09/21 Ordered By: Neftali Wright Discharge Diet: Usual diet and Regular Discharge Activity: Increase activity as tolerated Patient Instructions: Opioid Safety Activity Restrictions/Additional Instructions: Wear the knee immobilizer throughout the day to help with support of your right knee. Ensure that you are using a walker or wheelchair for your mobility. You may remove the knee immobilizer at night and then discontinue it as your right knee feels better. Case management will contact you regarding orthopedic follow-up. Do not take your lisinopril until you see your doctor in follow-up and have all your medications reviewed. Make sure that you drink at least 1 quart of water a day in addition to all the other fluids. You may salt your food at the table. Call your doctor for a follow-up evaluation in 2 weeks for repeat blood count and other blood work. Case management will also contact you regarding follow-up for wound care. If you have any new persistent or worsening symptoms return to this emergency department at any time. Coding Level of Care Code ED Strain Technician for Debra Monroe Exam Comprehensive
[2021-10-09 13:18] LABS: Basophils % 0.2 %; Hematocrit 28.6 % (42.0-52.0); Hemoglobin 9.5 g/dL (11.7-16.6); Lymphocytes # 0.5 10^3/uL (0.8-4.8); Lymphocytes % 5.7 %; Mean Corpuscular HGB Conc 33.2 g/dL (30.0-36.0); Mean Corpuscular Volume 78.4 fl (80-94); Mean Platelet Volume 11.4 fL (7.4-10.4); Monocytes # 0.6 10^3/uL (0.2-0.9); Monocytes % 7.1 %; Neutrophils # 7.33 10^3/uL (1.8-7.7); Neutrophils % 86.6 %; Nucleated Red Blood Cells % 0 %; Platelet Count 230 10^3/cmm (130-400); Red Blood Count 3.65 10^6/uL (4.1-5.3); White Blood Count 8.5 10^3/uL (4.0-10.0)
[2021-10-09] MEDS: sodium chloride 0.9% 1,000 ML 999 ML IV (13:30)
--- NOTE | 2021-10-09 13:32 | PC.NURSE ---
PT states he fell on his knees last night at home. PT states it happened again this morning. PT states he was able to call family to bring him to the ED. IV started and fluids running.
--- NOTE | 2021-10-09 13:35 | PC.NURSE ---
PT placed on continuous NIBP, SpO2, and CM
[2021-10-09 13:41] LABS: Alanine Aminotransferase 14 U/L (0-41); Albumin Level 3.7 g/dL (3.5-5.2); Alkaline Phosphatase 80 IU/L (40-130); Anion Gap 17.8 (5-19); Aspartate Amino Transferase 16 U/L (0-40); Blood Urea Nitrogen 22 mg/dL (8-23); Calcium 8.9 mg/dL (8.5-10.5); Carbon Dioxide 17 mmol/L (22-29); Chloride 94 mmol/L (98-107); Globulin 2.5 g/dL (1.3-4.6); Glucose 101 mg/dL (65-115); Osmolality Calculated 261 mOsm/kg (285-295); Potassium 4.8 mmol/L (3.5-5.1); Sodium 124 mmol/L (136-145); Total Bilirubin 0.7 mg/dL (0.15-1.2); Total Protein 6.2 g/dL (6.6-8.7)
[2021-10-09] MEDS: fentaNYL 50 mcg/mL INJ 2mL 25 MCG IVP (13:50)
--- NOTE | 2021-10-09 15:10 | XRR_ITS ---
PROCEDURE INFORMATION: Exam: XR Right Femur Exam date and time: 10/09/2021 3:19 PM Age: 75 years old Clinical indication: Pain; Thigh; Right; Additional info: Fall and pain in upper leg TECHNIQUE: Imaging protocol: XR Right femur. Views: 2 views. COMPARISON: CR (LOW EXM, ) 10/09/2021 12:50 PM FINDINGS: Bones/joints: No acute fracture. Severe DJD of the right hip and moderate DJD of the knee most conspicuous within the lateral compartment. Soft tissues: Unremarkable. XR/XR femur RT min 2V* [id number] IMPRESSION: No acute findings.
[2021-10-09] MEDS: HYDROcodone-acetaminophen 7.5-325 mg Tablet 1 TAB PO (15:43)
--- NOTE | 2021-10-09 16:12 | ECG_ITS ---
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 Measurements Intervals [place] Rate: 78 P: 30 AR: 164 QRS: 50 QRSD: 93 T: -9 QT: 344 QTc: 392 Interpretive Statements SINUS RHYTHM No previous ECG available for comparison Electronically Signed On 10-10-2021 19:43:13 CDT by Irma Navarrete M.D. [email or web address] ([email or web address]
--- NOTE | 2021-10-09 16:47 | ED_ITS ---
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) Mode of arrival: wheelchair History of Present Illness: Place fall occurred: home [facility] ED PFSH: Medical History (Updated 10/09/21 @ 16:26 by Neftali Wright DO) CAD (coronary artery disease) DJD (degenerative joint disease) Dyslipidemia Essential hypertension GERD (gastroesophageal reflux disease) Hammer toe History of amputation of right great toe Neuropathy Psoriasis Family History Father Dementia Mother Cancer BRAIN TUMOR Social History Smoking and tobacco status: never smoked Lives independently: Yes Household members: spouse Marital status: Current occupational status: retired Pets and animals: Yes History of recent travel: No Current gender identity: Male Course Vital Signs: Vital signs: Vital Signs Temperature 99.4 F 10/09/21 12:32 Pulse Rate 93 10/09/21 15:44 Respiratory Rate 21 H 10/09/21 15:44 Blood Pressure 144/80 10/09/21 15:44 Pulse Oximetry 97 10/09/21 15:44 MDM - Fall Lab Data : 10/09/21 13:05 10/09/21 13:05 Radiology Impressions Knee X-Ray 10/09/21 12:17 IMPRESSION: 1. Joint effusion. 2. No acute bony abnormality. Femur X-Ray 10/09/21 15:10 IMPRESSION: No acute findings. Laboratory Results WBC 8.5 10^3/uL (4.0-10.0) 10/09/21 13:05 RBC 3.65 10^6/uL (4.1-5.3) L 10/09/21 13:05 Hgb 9.5 g/dL (11.7-16.6) L 10/09/21 13:05 Hct 28.6 % (42.0-52.0) L 10/09/21 13:05 MCV 78.4 fl (80-94) L 10/09/21 13:05 MCH 26.0 pg (28.0-34.0) L 10/09/21 13:05 MCHC 33.2 g/dL (30.0-36.0) 10/09/21 13:05 RDW 17.0 % (12.1-15.1) H 10/09/21 13:05 Plt Count 230 10^3/cmm (130-400) 10/09/21 13:05 MPV 11.4 fL (7.4-10.4) H 10/09/21 13:05 Neut % (Auto) 86.6 % 10/09/21 13:05 Lymph % (Auto) 5.7 % 10/09/21 13:05 [place] % (Auto) 7.1 % 10/09/21 13:05 Eos % (Auto) 0.0 % 10/09/21 13:05 Baso % (Auto) 0.2 % 10/09/21 13:05 Neut # (Auto) 7.33 10^3/uL (1.8-7.7) 10/09/21 13:05 Lymph # (Auto) 0.5 10^3/uL (0.8-4.8) L 10/09/21 13:05 [place] # (Auto) 0.6 10^3/uL (0.2-0.9) 10/09/21 13:05 Eos # (Auto) 0.0 10^3/uL (0.0-0.8) 10/09/21 13:05 Baso # (Auto) 0.0 10^3/uL (0.0-0.1) 10/09/21 13:05 Nucleated RBC % (auto) 0 % 10/09/21 13:05 Nucleated RBCs # 0.0 /100WBC 10/09/21 13:05 Sodium 124 mmol/L (136-145) L 10/09/21 13:05 Potassium 4.8 mmol/L (3.5-5.1) 10/09/21 13:05 Chloride 94 mmol/L (98-107) L 10/09/21 13:05 Carbon Dioxide 17 mmol/L (22-29) L 10/09/21 13:05 Anion Gap 17.8 (5-19) 10/09/21 13:05 BUN 22 mg/dL (8-23) 10/09/21 13:05 Creatinine 1.1 mg/dL (0.7-1.2) 10/09/21 13:05 GFR Calculation Not Reportable 10/09/21 13:05 Glucose 101 mg/dL (65-115) 10/09/21 13:05 Calculated Osmolality 261 mOsm/kg (285-295) L 10/09/21 13:05 Calcium 8.9 mg/dL (8.5-10.5) 10/09/21 13:05 Total Bilirubin 0.7 mg/dL (0.15-1.2) 10/09/21 13:05 AST 16 U/L (0-40) 10/09/21 13:05 ALT 14 U/L (0-41) 10/09/21 13:05 Alkaline Phosphatase 80 IU/L (40-130) 10/09/21 13:05 Total Protein 6.2 g/dL (6.6-8.7) L 10/09/21 13:05 Albumin 3.7 g/dL (3.5-5.2) 10/09/21 13:05 Globulin 2.5 g/dL (1.3-4.6) 10/09/21 13:05 Discharge Plan Discharge Patient Disposition: Home Clinical Impression: Left knee injury, Foot ulcer, left, Hyponatremia, Anemia Condition: Stable Prescriptions: New hydrocodone-acetaminophen 5-325 mg tablet 1 tab PO BID PRN (Reason: pain) Qty: 10 0RF No Action (DME) Diabetic Shoes See Rx Instructions .ROUTE .MEDSUPPLY Qty: 1 0RF Rx Instructions: As directed aspirin 325 mg tablet 325 mg PO BID 0RF amlodipine 2.5 mg tablet 2.5 mg PO DAILY 90 Days Qty: 90 1RF atorvastatin 40 mg tablet 40 mg PO DAILY 90 Days Qty: 90 1RF gabapentin 300 mg capsule 300 mg PO TID 90 Days Qty: 270 1RF isosorbide mononitrate 30 mg tablet extended release 24 hr 30 mg PO DAILY 90 Days Qty: 90 1RF lisinopril 20 mg tablet 20 mg PO DAILY 90 Days Qty: 90 1RF loratadine [Allergy Relief (loratadine)] 10 mg tablet 10 mg PO DAILY 90 Days Qty: 90 1RF metoprolol tartrate 50 mg tablet 50 mg PO DAILY 90 Days Qty: 90 1RF omeprazole 20 mg capsule,delayed release(DR/EC) 20 mg PO DAILY 90 Days Qty: 90 1RF tamsulosin [Flomax] 0.4 mg capsule 0.4 mg PO DAILY 90 Days Qty: 90 1RF tizanidine 4 mg tablet 4 mg PO TID PRN (Reason: muscle spasticity) 90 Days Qty: 270 1RF sodium chloride 1 gram tablet 1,000 mg PO DAILY 90 Days Qty: 90 1RF Discharge Orders: Discharge ED (Routine); Ordered 10/09/21 Ordered By: Neftali Wright Discharge Diet: Usual diet and Regular Discharge Activity: Increase activity as tolerated Patient Instructions: Opioid Safety Activity Restrictions/Additional Instructions: Wear the knee immobilizer throughout the day to help with support of your right knee. Ensure that you are using a walker or wheelchair for your mobility. You may remove the knee immobilizer at night and then discontinue it as your right knee feels better. Case management will contact you regarding orthopedic follow-up. Do not take your lisinopril until you see your doctor in follow-up and have all your medications reviewed. Make sure that you drink at least 1 quart of water a day in addition to all the other fluids. You may salt your food at the table. Call your doctor for a follow-up evaluation in 2 weeks for repeat blood count and other blood work. Case management will also contact you regarding follow-up for wound care. If you have any new persistent or worsening symptoms return to this emergency department at any time. Coding Level of Care Code ED Proofer Black [employer] White for Debra Monroe
--- NOTE | 2021-10-10 16:26 | DCPLANNER ---
Addendum entered by Kyara Delgado 12/01/21 10:44: Patient had a follow up appointment scheduled with ortho - patient did attend appointment. Addendum entered by Kyara Delgado 10/13/21 15:14: Patient has a follow up appointment scheduled for Thursday, October 14, 2021 at 10:[address] Krueger at ortho. Clinic will call patient with appointment information. Original Note: manager supplier had message to schedule a follow up appointment for patient with ortho. manager supplier sent patients information to the front office staff at ortho. Patients information will be printed and reviewed. Clinic will call patient with appointment information.
--- NOTE | 2021-10-10 16:27 | DCPLANNER ---
Addendum entered by Kyara Delgado 12/01/21 09:37: Patient had a follow up appointment scheduled with Wound Care - appointment was cancelled Addendum entered by Kyara Delgado 10/16/21 05:38: Patient has a follow up appointment scheduled for Sunday, October 17, 2021 at 10:00 with [facility] at Wound Care. Clinic will call patient with appointment information. Original Note: stock room manager had message to schedule a follow up appointment for patient with Wound Care. stock room manager sent patients information to the front office staff at Wound Care. Patients information will be printed and reviewed. Clinic will call patient with appointment information.
== END 2021-10-09 17:18 | disposition home or self-care (01) ==
PROVIDERS: Emergency Provider Emergency Medicine
DX: S89.91XA Unspecified injury of right lower leg, initial encounter (principal); W18.39XA Other fall on same level, initial encounter; L97.429 Non-pressure chronic ulcer of left heel and midfoot with unspecified severity; D64.9 Anemia, unspecified; E87.1 Hypo-osmolality and hyponatremia; I10 Essential (primary) hypertension
CPT/HCPCS: 29530; 73552; 73562; 80053; 85025; 93005; 96361; 96374; 99284; J3010; J7030

== ENCOUNTER 2021-10-13 16:10 | Outpatient (CLI) | payer MEDICARE, MEDICAID, SELFPAY ==
--- NOTE | 2021-10-13 16:19 | XR_ITS ---
WS: [id number] K[facility], AP view, 10/13/2021 Clinical Data: K59.00 - Constipation, unspecified Comparison: None. Findings: There is fecal material in the colon. The transverse colon, descending colon and rectum show the larg est amount of fecal material. The bladder is full. There is a levoscoliosis of the lumbar spine. 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 XR/XR abdomen 1V* [id number] Impression: Large amount of fecal material in the colon.
== END 2021-10-13 16:11 | disposition home or self-care (01) ==
LOC: RAD 16:14
PROVIDERS: PCP Family Medicine; Visit Provider Nurse Practitioner Family
DX: K59.00 Constipation, unspecified (principal); E87.1 Hypo-osmolality and hyponatremia; D64.9 Anemia, unspecified; R30.0 Dysuria; M25.562 Pain in left knee
CPT/HCPCS: 74018; 80053; 81000; 83550; 84443; 85025

== ENCOUNTER → 2021-10-14 10:31 | Outpatient (BNVA) | payer MEDICARE, MEDICAID, SELFPAY | PROVIDERS: PCP Family Medicine; Referring Provider Emergency Medicine; Visit Provider Orthopaedic Surgery | DX: M17.12 Unilateral primary osteoarthritis, left knee (principal); S89.92XA Unspecified injury of left lower leg, initial encounter; W19.XXXA Unspecified fall, initial encounter | CPT/HCPCS: 99203 ==

== ENCOUNTER 2021-11-07 10:22 | Outpatient (CLI) | payer MEDICARE, MEDICAID, SELFPAY ==
--- NOTE | 2021-11-07 11:00 | USCV_ITS ---
Rigo Santiago Age: 75 Gender: M : 1945 Exam Date: 11/07/2021 10:58 Ordering Phys: Abilio Krueger MD Technologist: DUONG Exam Location[place] [facility] [place]ication: LEG SWELLING AFTER FALL MONTHS AGO. PT STATES SWELLING HAS GONE DOWN. HISTORY: LEG SWELLING AFTER FALL MONTHS AGO. PT STATES LEG HAS NOT BEEN SWELLING SINCE. PROCEDURES: Venous duplex imaging was performed in bilateral lower extremities. FINDINGS: Right lower extremity: there is partially occlusive DVT of a small segment of the Posterior Tibial Vein. All other veins of the right lower extremity demonstrate normal flow dynamics with no evidence of deep vein thrombosis or superficial phlebitis. No evidence of deep vein thrombosis or superficial thrombophlebitis in the left lower extremity. 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 Dr. Emmie Valle DO (Electronically Signed) Final Date: 07 November 2021 16:41 S
== END 2021-11-07 10:23 | disposition home or self-care (01) ==
LOC: RAD 10:23
PROVIDERS: PCP Family Medicine; Visit Provider Orthopaedic Surgery
DX: M17.12 Unilateral primary osteoarthritis, left knee (principal); I82.441 Acute embolism and thrombosis of right tibial vein
CPT/HCPCS: 93970

== ENCOUNTER 2021-12-23 13:37 | Inpatient (IN) | payer MEDICARE, MEDICAID, SELFPAY ==
[2021-12-23] VITALS (14 sets, daily range): BP systolic 110–149; BP diastolic 67–88; PULSE 78–112; RESP 16–20; TEMP 36.6–37; O2SAT 92–99; BMI 23.9; BMI 24.0
--- NOTE | 2021-12-23 14:11 | USCV_ITS ---
Rigo Santiago Age: 76 Gender: M : 1945 Exam Date: 12/23/2021 14:36 Ordering Phys: Concha Mcguire Technologist: ZUNILDA [place] [facility] [place]ication: RLE PAIN AND SWELLING HISTORY: Lower extremity pain. Lower extremity swelling. PROCEDURES: Venous duplex imaging was performed in only the right lower extremity. The following venous structures were evaluated: common femoral vein, profunda vein, proximal portion of the greater saphenous vein, superficial femoral vein, and the popliteal vein. In addition, the posterior tibial and peroneal trunk were evaluated. Serial compression, augmentation maneuvers, and spectral Doppler flow evaluation were performed. FINDINGS: No evidence of DVT seen in any vessel visualized at this time. Edema seen in Righ Lower Leg CONCLUSIONS No evidence of right lower extremity DVT. Suleman Mcfarlane MD (Electronically Signed) Final Date: 23 December 2021 16:12 S
--- NOTE | 2021-12-23 14:11 | CT_ITS ---
WS: [id number] CTA OF THE CHEST WITH PULMONARY EMBOLISM PROTOCOL TECHNIQUE: High-resolution contrast enhanced CTA of the chest with coronal and sagittal reformatted i mages with pulmonary embolism protocol. MIP images are also reviewed. CLINICAL INFORMATION: hx of clot, short of breath COMPARISON: None. DLP: 447.[address] scans at [facility] use at least one of these dose optimization techniques: automated e xposure control; mA and/or kV adjustment per patient size (includes targeted exams where dose is matc hed to clinical indication); or iterative reconstruction. FINDINGS: Proximal main pulmonary arteries are normal. Normal segmental and subsegmental pulmonary arteries. No evidence of pulmonary embolus. Normal caliber thoracic aorta. Aortic calcification. Coronary calcifi cation. Prominent mediastinal, AP window and peribronchial lymph nodes nonspecific but likely reactiv e. Prominent RIGHT greater than LEFT hilar lymph nodes. Moderate chronic emphysematous changes. Small bilateral pleural effusions. Compressive atelectasis in the lung bases. Mild thoracic kyphosis. Mild thoracic curve. Small pericardial effusion. Incompletely visualized cystic lesions LEFT kidney. CT/CT angio chest PE protcl [id number] IMPRESSION: 1. No evidence of pulmonary embolus. 2. Small pleural effusions with compressive atelectasis in the lung bases. 3. Small pericardial effusion. Prominent mediastinal lymph nodes likely reacti ve. 4. No other acute findings.
--- NOTE | 2021-12-23 14:15 | ED_ITS ---
Documented by User: Concha Mcguire PA-C 12/23/21 14:58 HPI - Extremity Problem General: Chief complaint: Extremity Injury, Lower Stated complaint: R LEG PAIN & EDEMA Time Seen by Provider: 12/23/21 13:45 Source: patient Mode of arrival: wheelchair Limitations: no limitations History of Present Illness: 26-year-old male with an extensive medical history presents to the ER today for right lower extremity increased pain and swelling over the last several days. Patient also reports increased shortness of breath and some mild chest pain. Patient reports recently he was diagnosed with a blood clot in the right lower leg and was started on Eliquis which he continues at 5 mg daily. Patient reports things had improved after he was originally started on it however now the pain is worsening. Patient reports he is unable to bear weight on it. Patient also reports that shortness of breath has been worsening. 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 Left leg DVT Neuropathy Osteoarthritis of left knee Polyarticular arthritis Polymyalgia Psoriasis Family History Father Dementia Mother Cancer BRAIN TUMOR Social History Smoking and tobacco status: current every day smoker (smokes 1 pk/day) Lives independently: Yes Household members: spouse Marital status: Current occupational status: retired Pets and animals: Yes History of recent travel: No Current gender identity: Male Physical Exam Const: COMMON NORMALS: no acute distress, no limitations and alert HENMT: COMMON NORMALS: normocephalic, atraumatic, external ears normal, Normal nasal mucous membranes and turbinates present and moist oral mucous membranes HEAD & SCALP: normocephalic and atraumatic NOSE: Normal nasal mucous membr anes and turbinates present EXTERNAL EAR: Yes external ears normal Eye: COMMON NORMALS: conjunctivae normal CONJUNCTIVA: Yes conjunctivae normal Neck/C-Spine: COMMON NORMALS: full ROM and no lymphadenopathy Chest: COMMONS NORMALS: normal palpation of entire chest wall Resp: COMMON NORMALS: normal respiratory effort, No retractions and clear to auscultation bilaterally AUSCULTATION: clear to auscultation bilaterally Cardio: COMMON NORMALS: regular rate and regular rhythm RATE: regular rate RHYTHM: regular rhythm GI: COMMON NORMALS: Normal to inspection, nondistended, normoactive bowel sounds present, Soft to palpation and non-tender PALPATION: Yes Soft to palpation Back/Pelvis: COMMON NORMALS: no thoracic nor lumbar tenderness Extremity: NARRATIVE EXTREMITY EXAM: Patient has some mild to moderate swelling of the right lower extremity in comparison to the left. There is significant tenderness in the posterior right calf. Patient's extremity does not appear to be cool or warmer in comparison to the left leg. Patient has tenderness to palpation of the right posterior calf, and a positive Homans' sign. Neuro: SENSORIUM/ORIENTATION: Yes alert Psych: COMMON NORMALS: mental status grossly normal and Normal thought process present THOUGHT PROCESS: Normal thought process present Skin: COMMON NORMALS: no rashes or lesions noted GENERAL SKIN EXAM: no mirian hes or lesions noted Course ED course: 76-year-old male presents to the ER today for right lower extremity pain that is worsening in addition to some shortness of breath and chest pain. Patient reports he was relatively recently seen in the hospital and hospitalized for a blood clot in the right lower extremity. Patient reports he was started on Eliquis and took it appropriately and is still taking it. Patient reports the right lower extremity pain however over the last 2 days has continued to worsen to the point he is unable to bear weight on the right leg. Patient reports the pain is mostly in the calf area. Patient denies any known injury. Patient reports that his chest pain is intermittent and feels he is more short of breath than normal. Denies any history of a PE. We will get lab work and a CT PE chest along with a right lower extremity Doppler ultrasound at this time. Reevaluation(s): Reevaluation #1: No blood clot is noted in the right lower extremity per field artillery targeting technician. CBC reveals critically low hemoglobin. We will move patient from vertical flow to a room in front. I discussed this patient with Dr. Shelton who will take over care. Time: 14:57 Vital Signs: Vital signs: Vital Signs Temperature 98.0 F 12/26/21 17:21 Pulse Rate 67 12/26/21 17:21 Respiratory Rate 18 12/26/21 17:21 Blood Pressure 106/64 12/26/21 17:21 Pulse Oximetry 100 12/26/21 17:21 Oxygen Delivery Me thod 12/26/21 15:45 Oxygen Flow Rate 3 12/25/21 08:33 MDM - Extremity (Nontraumatic) Medical Decision Making Care transferred to Dr. Shelton given critically low hemoglobin and need for greater work up. Lab Data : 12/26/21 02:44 12/26/21 02:44 Radiology Impressions Chest CTA 12/23/21 14:11 IMPRESSION: 1. No evidence of pulmonary embolus. 2. Small pleural effusions with compressive atelectasis in the lung bases. 3. Small pericardial effusion. Prominent mediastinal lymph nodes likely reactive. 4. No other acute findings. Laboratory Results WBC 5.1 10^3/uL (4.0-10.0) 12/23/21 14:20 RBC 2.33 10^6/uL (4.1-5.3) L 12/23/21 14:20 Hgb 5.3 g/dL (11.7-16.6) L* 12/23/21 14:20 Hct 18.0 % (42.0-52.0) L* 12/23/21 14:20 MCV 77.3 fl (80-94) L 12/23/21 14:20 MCH 22.7 pg (28.0-34.0) L 12/23/21 14:20 MCHC 29.4 g/dL (30.0-36.0) L 12/23/21 14:20 RDW 17.2 % (12.1-15.1) H 12/23/21 14:20 Plt Count 251 10^3/cmm (130-400) 12/23/21 14:20 MPV 11.0 fL (7.4-10.4) H 12/23/21 14:20 Neut % (Auto) 60.9 % 12/23/21 14:20 Lymph % (Auto) 24.9 % 12/23/21 14:20 [place] % (Auto) 13.0 % 12/23/21 14:20 Eos % (Auto) 0.4 % 12/23/21 14:20 Baso % (Auto) 0.4 % 12/23/21 14:20 Reticulocyte % (Auto) 1.5 % (0.5-2.0) 12/23/21 14:20 Neut # (Auto) 3.08 10^3/uL (1.8-7.7) 12/23/21 14:20 Lymph # (Auto) 1.3 10^3/uL (0.8-4.8) 12/23/21 14:20 [place] # (Auto) 0.7 10^3/uL (0.2-0.9) 12/23/21 14:20 Eos # (Auto) 0.0 10^3/uL (0.0-0.8) 12/23/21 14:20 Baso # (Auto) 0.0 10^3/uL (0.0-0.1) 12/23/21 14:20 Nucleated RBC % (auto) 0 % 12/23/21 14:20 Nucleated RBCs # 0.0 /100WBC 12/23/21 14:20 PT 16.40 SECONDS (12.1-14.9) H 12/23/21 14:27 INR 1.28 (0.8-1.2) H 12/23/21 14:27 APTT 33.6 SECONDS (23.9-36.7) 12/23/21 14:27 Sodium 130 mmol/L (136-145) L 12/23/21 14:20 Potassium 4.1 mmol/L (3.5-5.1) 12/23/21 14:20 Chloride 99 mmol/L (98-107) 12/23/21 14:20 Carbon Dioxide 20 mmol/L (22-29) L 12/23/21 14:20 Anion Gap 15.1 (5-19) 12/23/21 14:20 BUN 15 mg/dL (8-23) 12/23/21 14:20 Creatinine 0.8 mg/dL (0.7-1.2) 12/23/21 14:20 GFR Calculation Not Reportable 12/23/21 14:20 Glucose 91 mg/dL (65-115) 12/23/21 14:20 Estimat Average Glucose 97 12/23/21 14:10 Hemoglobin A1c 5.0 % (4.0-6.0) 12/23/21 14:10 Calculated Osmolality 270 mOsm/kg (285-295) L 12/23/21 14:20 Calcium 8.6 mg/dL (8.5-10.5) 12/23/21 14:20 Iron 9 ug/dL (59-158) L 12/23/21 14:20 TIBC 326 mcg/dl 12/23/21 14:20 % Saturation 2.7 % (20-50) L 12/23/21 14:20 Unsat Iron Binding 317 ug/dL (112-347) 12/23/21 14:20 Total Bilirubin 0.3 mg/dL (0.15-1.2) 12/23/21 14:20 AST 13 U/L (0-40) 12/23/21 14:20 ALT 9 U/L (0-41) 12/23/21 14:20 Alkaline Phosphatase 90 U/L (40-130) 12/23/21 14:20 Troponin T Baseline 64 ng/L (0-15) H 12/23/21 14:20 NT-Pro-B Natriuret Pep 70348 pg/mL (0-450) H 12/23/21 14:20 Total Protein 5.9 g/dL (6.6-8.7) L 12/23/21 14:20 Albumin 3.2 g/dL (3.5-5.2) L 12/23/21 14:20 Globulin 2.7 g/dL (1.3-4.6) 12/23/21 14:20 Vitamin B12 630 pg/mL (232-1245) 12/23/21 14:20 Procalcitonin 0.09 ng/mL (0-0.5) 12/23/21 14:20 TSH 1.50 uIU/mL (0.27-4.20) 12/23/21 14:20 Urine Color Yellow (Yellow) 12/23/21 17:00 Urine Appearance Clear (CLEAR) 12/23/21 17:00 Urine pH 6.5 (5-7) 12/23/21 17:00 Ur Specific [place] 1.005 (1.005-1.030) 12/23/21 17:00 Urine Protein Neg (Negative) 12/23/21 17:00 Urine Glucose (UA) Norm (Normal) 12/23/21 17:00 Urine Ketones Negative (Negative) 12/23/21 17:00 Urine Blood Neg (Negative) 12/23/21 17:00 Urine Nitrate Negative (Negative) 12/23/21 17:00 Urine Bilirubin Neg (Negative) 12/23/21 17:00 Urine Urobilinogen Norm mg/dL (Negative) 12/23/21 17:00 Ur Leukocyte Esterase Negative (Negative) 12/23/21 17:00 Urine Opiates Screen Negative ng/mL (Negative) 12/23/21 17:00 Ur Barbiturates Screen Negative ng/mL (Negative) 12/23/21 17:00 Ur Phencyclidine Scrn Negative ng/mL (Negative) 12/23/21 17:00 Ur Amphetamines Screen Negative ng/mL (Negative) 12/23/21 17:00 U Benzodiazepines Scrn Negative ng/mL (Negative) 12/23/21 17:00 Urine Cocaine Screen Negative ng/mL (Negative) 12/23/21 17:00 U Marijuana (THC) Screen Positive ng/mL (Negative) H 12/23/21 17:00 Ethyl Alcohol < 10 mg/dL (0-10) 12/23/21 14:20 Blood Type B Positive 12/23/21 15:12 Rho(D) Type Positive 12/23/21 15:12 Antibody Screen Negative 12/23/21 15:12 Crossmatch See Detail 12/23/21 15:12 Critical Care Time Critical Care Time: Critical Care Time: No Discharge Plan Discharge Patient Disposition: Admitted As Inpatient Admit Provider: Karen Ramirez Clinical Impression: Acute on chronic anemia, Acute on chronic congestive heart failure Condition: Stable Discharge Diet: Cardiac Discharge Activity: Resume usual activity and Increase activity as tolerated Sign Out Sign Out Data: Patient Sign Out occurred on 12/23/21 at 15:05. Patient's care was discussed, and care was transferred from Concha Mcguire PA-C to Wan Shelton MD. Sign Out Comment: Pt has critical hemoglobin and needs probable transfusion and significant work up. Changing from vertical flow to another room. 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 Left leg DVT Neuropathy Osteoarthritis of left knee Polyarticular arthritis Polymyalgia Psoriasis Family History Father Dementia Mother Cancer BRAIN TUMOR Social History Smoking and tobacco status: current every day smoker (smokes 1 pk/day) Lives independently: Yes Household members: spouse Marital status: Current occupational status: retired Pets and animals: Yes History of recent travel: No Current gender identity: Male Course Vital Signs: Vital signs: Vital Signs Temperature 98.0 F 12/26/21 17:21 Pulse Rate 67 12/26/21 17:21 Respiratory Rate 18 12/26/21 17:21 Blood Pressure 106/64 12/26/21 17:21 Pulse Oximetry 100 12/26/21 17:21 Oxygen Delivery Me thod 12/26/21 15:45 Oxygen Flow Rate 3 12/25/21 08:33 MDM - Extremity (Nontraumatic) Medical Decision Making Care transferred to Dr. Shelton given critically low hemoglobin and need for greater work up. Patient care discussed with ROLLY Phillips. I personally saw and evaluated patient. I reperformed davidson portions of E/M. I have reviewed documentation. I discussed results of ED evaluation with the patient including low hemoglobin. Patient was consented for blood transfusion and transfusion ordered. Given use of Eliquis and unclear source of blood loss as guaiac was negative and the fact that patient is high risk for volume overload patient requires inpatient man agement and observation. Hospital service contacted and agreed to admit the patient. Wan Shelton MD Emergency Medicine Lab Data : 12/26/21 02:44 12/26/21 02:44 Radiology Impressions Chest CTA 12/23/21 14:11 IMPRESSION: 1. No evidence of pulmonary embolus. 2. Small pleural effusions with compressive atelectasis in the lung bases. 3. Small pericardial effusion. Prominent mediastinal lymph nodes likely reactive. 4. No other acute findings. Laboratory Results WBC 5.1 10^3/uL (4.0-10.0) 12/23/21 14:20 RBC 2.33 10^6/uL (4.1-5.3) L 12/23/21 14:20 Hgb 5.3 g/dL (11.7-16.6) L* 12/23/21 14:20 Hct 18.0 % (42.0-52.0) L* 12/23/21 14:20 MCV 77.3 fl (80-94) L 12/23/21 14:20 MCH 22.7 pg (28.0-34.0) L 12/23/21 14:20 MCHC 29.4 g/dL (30.0-36.0) L 12/23/21 14:20 RDW 17.2 % (12.1-15.1) H 12/23/21 14:20 Plt Count 251 10^3/cmm (130-400) 12/23/21 14:20 MPV 11.0 fL (7.4-10.4) H 12/23/21 14:20 Neut % (Auto) 60.9 % 12/23/21 14:20 Lymph % (Auto) 24.9 % 12/23/21 14:20 [place] % (Auto) 13.0 % 12/23/21 14:20 Eos % (Auto) 0.4 % 12/23/21 14:20 Baso % (Auto) 0.4 % 12/23/21 14:20 Reticulocyte % (Auto) 1.5 % (0.5-2.0) 12/23/21 14:20 Neut # (Auto) 3.08 10^3/uL (1.8-7.7) 12/23/21 14:20 Lymph # (Auto) 1.3 10^3/uL (0.8-4.8) 12/23/21 14:20 [place] # (Auto) 0.7 10^3/uL (0.2-0.9) 12/23/21 14:20 Eos # (Auto) 0.0 10^3/uL (0.0-0.8) 12/23/21 14:20 Baso # (Auto) 0.0 10^3/uL (0.0-0.1) 12/23/21 14:20 Nucleated RBC % (auto) 0 % 12/23/21 14:20 Nucleated RBCs # 0.0 /100WBC 12/23/21 14:20 PT 16.40 SECONDS (12.1-14.9) H 12/23/21 14:27 INR 1.28 (0.8-1.2) H 12/23/21 14:27 APTT 33.6 SECONDS (23.9-36.7) 12/23/21 14:27 Sodium 130 mmol/L (136-145) L 12/23/21 14:20 Potassium 4.1 mmol/L (3.5-5.1) 12/23/21 14:20 Chloride 99 mmol/L (98-107) 12/23/21 14:20 Carbon Dioxide 20 mmol/L (22-29) L 12/23/21 14:20 Anion Gap 15.1 (5-19) 12/23/21 14:20 BUN 15 mg/dL (8-23) 12/23/21 14:20 Creatinine 0.8 mg/dL (0.7-1.2) 12/23/21 14:20 GFR Calculation Not Reportable 12/23/21 14:20 Glucose 91 mg/dL (65-115) 12/23/21 14:20 Estimat Average Glucose 97 12/23/21 14:10 Hemoglobin A1c 5.0 % (4.0-6.0) 12/23/21 14:10 Calculated Osmolality 270 mOsm/kg (285-295) L 12/23/21 14:20 Calcium 8.6 mg/dL (8.5-10.5) 12/23/21 14:20 Iron 9 ug/dL (59-158) L 12/23/21 14:20 TIBC 326 mcg/dl 12/23/21 14:20 % Saturation 2.7 % (20-50) L 12/23/21 14:20 Unsat Iron Binding 317 ug/dL (112-347) 12/23/21 14:20 Total Bilirubin 0.3 mg/dL (0.15-1.2) 12/23/21 14:20 AST 13 U/L (0-40) 12/23/21 14:20 ALT 9 U/L (0-41) 12/23/21 14:20 Alkaline Phosphatase 90 U/L (40-130) 12/23/21 14:20 Troponin T Baseline 64 ng/L (0-15) H 12/23/21 14:20 NT-Pro-B Natriuret Pep 14167 pg/mL (0-450) H 12/23/21 14:20 Total Protein 5.9 g/dL (6.6-8.7) L 12/23/21 14:20 Albumin 3.2 g/dL (3.5-5.2) L 12/23/21 14:20 Globulin 2.7 g/dL (1.3-4.6) 12/23/21 14:20 Vitamin B12 630 pg/mL (232-1245) 12/23/21 14:20 Procalcitonin 0.09 ng/mL (0-0.5) 12/23/21 14:20 TSH 1.50 uIU/mL (0.27-4.20) 12/23/21 14:20 Urine Color Yellow (Yellow) 12/23/21 17:00 Urine Appearance Clear (CLEAR) 12/23/21 17:00 Urine pH 6.5 (5-7) 12/23/21 17:00 Ur Specific [place] 1.005 (1.005-1.030) 12/23/21 17:00 Urine Protein Neg (Negative) 12/23/21 17:00 Urine Glucose (UA) Norm (Normal) 12/23/21 17:00 Urine Ketones Negative (Negative) 12/23/21 17:00 Urine Blood Neg (Negative) 12/23/21 17:00 Urine Nitrate Negative (Negative) 12/23/21 17:00 Urine Bilirubin Neg (Negative) 12/23/21 17:00 Urine Urobilinogen Norm mg/dL (Negative) 12/23/21 17:00 Ur Leukocyte Esterase Negative (Negative) 12/23/21 17:00 Urine Opiates Screen Negative ng/mL (Negative) 12/23/21 17:00 Ur Barbiturates Screen Negative ng/mL (Negative) 12/23/21 17:00 Ur Phencyclidine Scrn Negative ng/mL (Negative) 12/23/21 17:00 Ur Amphetamines Screen Negative ng/mL (Negative) 12/23/21 17:00 U Benzodiazepines Scrn Negative ng/mL (Negative) 12/23/21 17:00 Urine Cocaine Screen Negative ng/mL (Negative) 12/23/21 17:00 U Marijuana (THC) Screen Positive ng/mL (Negative) H 12/23/21 17:00 Ethyl Alcohol < 10 mg/dL (0-10) 12/23/21 14:20 Blood Type B Positive 12/23/21 15:12 Rho(D) Type Positive 12/23/21 15:12 Antibody Screen Negative 12/23/21 15:12 Crossmatch See Detail 12/23/21 15:12 Discharge Plan Discharge Patient Disposition: Admitted As Inpatient Admit Provider: Karen Ramirez Clinical Impression: Acute on chronic anemia, Acute on chronic congestive heart failure Condition: Stable Discharge Diet: Cardiac Discharge Activity: Resume usual activity and Increase activity as tolerated Sign Out Sign Out Data: Patient Sign Out occurred on 12/23/21 at 15:05. Patient's care was discussed, and care was transferred from Concha Mcguire PA-C to Wan Shelton MD. Sign Out Comment: Pt has critical hemoglobin and needs probable transfusion and significant work up. Changing from vertical flow to another room. Last updated by Concha Mcguire PA-C at 12/23/21 14:56 Coding Level of Care Code ED Mechanical Test Technician for Chg Fwd Exam Comprehensive
[2021-12-23 14:34] LABS: Basophils % 0.4 %; Eosinophils % 0.4 %; Lymphocytes # 1.3 10^3/uL (0.8-4.8); Lymphocytes % 24.9 %; Mean Corpuscular HGB Conc 29.4 g/dL (30.0-36.0); Mean Corpuscular Hemoglobin 22.7 pg (28.0-34.0); Mean Corpuscular Volume 77.3 fl (80-94); Monocytes # 0.7 10^3/uL (0.2-0.9); Neutrophils # 3.08 10^3/uL (1.8-7.7); Neutrophils % 60.9 %; Nucleated Red Blood Cells % 0 %; Platelet Count 251 10^3/cmm (130-400); Red Blood Count 2.33 10^6/uL (4.1-5.3); Red Cell Distribution Width 17.2 % (12.1-15.1); White Blood Count 5.1 10^3/uL (4.0-10.0)
[2021-12-23 14:51] LABS: Hemoglobin 5.3 g/dL (11.7-16.6)
[2021-12-23 14:52] LABS: Alanine Aminotransferase 9 U/L (0-41); Albumin Level 3.2 g/dL (3.5-5.2); Alkaline Phosphatase 90 U/L (40-130); Anion Gap 15.1 (5-19); Aspartate Amino Transferase 13 U/L (0-40); Blood Urea Nitrogen 15 mg/dL (8-23); Calcium 8.6 mg/dL (8.5-10.5); Carbon Dioxide 20 mmol/L (22-29); Chloride 99 mmol/L (98-107); Creatinine Clr Calc Pharmacy 79.9938; Globulin 2.7 g/dL (1.3-4.6); Glucose 91 mg/dL (65-115); Osmolality Calculated 270 mOsm/kg (285-295); Potassium 4.1 mmol/L (3.5-5.1); Slide Review Slide Review Perform; Sodium 130 mmol/L (136-145); Total Bilirubin 0.3 mg/dL (0.15-1.2); Total Protein 5.9 g/dL (6.6-8.7)
[2021-12-23 14:54] LABS: INR 1.28 (0.8-1.2)
[2021-12-23 14:55] LABS: Partial Thromboplastin Time 33.6 SECONDS (23.9-36.7)
[2021-12-23] MEDS: iohexol 350 mg/mL 100 mL Btl IV (15:31)
[2021-12-23 17:07] LABS: Add Urine Microscopic? NO; Charge for UA Resulting for Rev
--- NOTE | 2021-12-23 17:09 | ECG_ITS ---
[facility] Test Date: 2021-12-23 Pat Name: Rigo Santiago Department: Room: 254 Gender: Male Sifter And Miller: : 1945 Requested By: Wan Shelton Order Number: [id number] Sierra MD: Hunter Mendoza M.D. Measurements Intervals [place] Rate: 96 P: 5 LA: 151 QRS: 69 QRSD: 99 T: -16 QT: 334 QTc: 423 Interpretive Statements SINUS RHYTHM WITH SINUS ARRHYTHMIA NONSPECIFIC ST & T-WAVE ABNORMALITY INTERPRETATION BASED ON A DEFAULT AGE OF 40 YEARS Compared to ECG 10/09/2021 13:03:55 T-wave abnormality now present Electronically Signed On 12-24-2021 9:20:35 CDT by Hunter Mendoza M.D. [id number]
[2021-12-23 17:11] LABS: Bilirubin Urine Neg (Negative); Blood Urine Neg (Negative); Glucose Urine UA Norm (Normal); Ketones Urine Negative (Negative); Nitrate Urine Negative (Negative); Protein Urine Neg (Negative); Specific Gravity, Urine 1.005 (1.005-1.030); Urine Appearance Clear (CLEAR); Urine Color Yellow (Yellow); Urobilinogen Urine Norm (Negative); pH Urine 6.5 (5-7)
[2021-12-23 17:12] LABS: Leukocyte Esterase Urine Negative (Negative)
[2021-12-23 17:42] LABS: NT Pro B Type Natriuretic Pept 15838 pg/mL (0-450)
--- NOTE | 2021-12-23 17:46 | P.HP_ITS ---
Providers/Chief Complaint Admitting Physician: Karen Ramirez MD Primary Care Provider: Parker Ashby DO Chief Complaint: R LEG PAIN & EDEMA History of Present Illness Rigo Santiago is a 76 year old male with past medical history of hypertension, remote history of alcohol abuse around 20 years ago, current everyday smoker, polymyalgia, recent diagnosis of left posterior tibial vein DVT who was recently started on Eliquis came to the ER today because of swelling of her right leg which started today morning along with some pain. Patient states around 2 days ago he was sitting up in chair when he all of a sudden started having shortness of breath which is getting aggravated on laying down. Since then he has been having generalized body pains but denies any shortness of breath. At baseline he is able to walk around in his yard without any difficulty but for last 2 days has been having the difficulty with shortness of breath on walking. Denies any chest pain. States usually he is homebound. Denies any nausea, vomiting, headache, dizziness. Last bowel movement was 2 days ago which was brownish blackish well-formed in nature. Denies any hematemesis, bleeding from anywhere else. Blood work in the ER showed a white count of 5, hemoglobin of 5.3, INR 1.2, sodium of 130, creatinine of 0.8, AST/ALT of 13/9, UA negative for any signs of infection, lower limb Dopplers negative for DVT, CTA as below Review of Systems General: Reports: 10 or more systems reviewed and unremarkable except in HPI and below Const: Denies: fever(s), chills, body aches, change in appetite, change in weight, malaise, night sweats, diaphoresis, change in sleep pattern, daytime sleepiness or snoring Eyes: Denies: change in vision, blurry vision, photophobia, eye discomfort or eye discharge ENMT: Denies: throat pain, enlarged tonsils, hoarseness, mouth pain, oral sores, dry mouth, tinnitus, nasal congestion or post nasal drip Card: Denies: chest pain, palpitations, irregular heart rhythm, edema, swelling of feet/ankles, lightheadedness, syncope, pre-syncope, dyspnea on exertion, orthopnea, leg pain with exertion or acrocyanosis Resp: Denies: dyspnea, productive cough, non-productive cough, wheezing, stridor, pain on inspiration, change in phlegm color, hemoptysis or chest congestion GI: Denies: abdominal pain, nausea, vomiting, hematemesis, coffee ground emesis, dysphagia, heartburn, diarrhea, constipation, bloating, GI cramping, change in bowel habits, pain on defecation, hematochezia or melena : Denies: flank pain, difficulty urinating, dysuria, urinary frequency, urinary urgency, urinary hesitancy, urinary dribbling, difficulty starting urination, change in urine stream, nocturia or hematuria Musc: Denies: neck pain, back pain, extremity pain, joint pain, joint swelling, joint redness, joint stiffness or limited range of motion Neuro: Denies: headache(s), numbness in extremities, weakness in extremities, sensory changes, lack of coordination, difficulty walking, frequent falls, dizziness, vertigo, confusion, Slurred speech present, difficulty communicating thoughts or seizure-like activity Psych: Denies: anxiety, depression, mood swings, panic attacks, hopelessness or irritability Endo: Denies: polyuria, polydipsia, tired all the time, cold intolerance, excessive sweating, flushing or heat intolerance Dylan/Lymph: Denies: easy bruising or easy bleeding All/Imm: Denies: tongue swelling, facial swelling or acute wheezing Medications/Allergies Home Medications Medication Instructions Recorded Confirmed Last Taken Type aspirin 325 mg tablet 325 mg PO BID 05/21/19 12/23/21 12/23/21 History Diabetic Shoes #1 ea 12/11/19 12/23/21 Unknown Rx amlodipine 2.5 mg tablet 2.5 mg PO DAILY 90 days #90 tabs 10/06/21 12/23/21 12/23/21 Rx gabapentin 300 mg capsule 300 mg PO TID 90 days #270 caps 10/06/21 12/23/21 Rx isosorbide mononitrate 30 mg 30 mg PO DAILY 90 days #90 tabs 10/06/21 12/23/21 12/23/21 Rx tablet,extended release 24 hr loratadine 10 mg tablet (Allergy 10 mg PO DAILY 90 days #90 tabs 10/06/21 12/23/21 12/23/21 Rx Relief (loratadine)) omeprazole 20 mg capsule,delayed 20 mg PO DAILY 90 days #90 caps 0612/23/21 12/23/21 Rx release tamsulosin 0.4 mg capsule (Flomax) 0.4 mg PO DAILY 90 days #90 caps 10/06/21 12/23/21 12/23/21 Rx tizanidine 4 mg tablet 4 mg PO TID PRN muscle spasticity 10/06/21 12/23/21 Unknown Rx 90 days #270 tabs sodium chloride 1 gram tablet 1,000 mg PO DAILY 90 days #90 tabs 10/07/21 12/23/21 12/23/21 Rx polyethylene glycol 3350 17 17 g PO BID #510 grams 10/13/21 12/23/21 12/23/21 Rx gram/dose oral powder (Miralax) apixaban 5 mg tablet (Eliquis) 5 mg PO BID DVT #60 tabs 11/07/21 12/23/21 12/23/21 Rx hydrocodone 5 mg-acetaminophen 325 1 tab PO Q4H PRN pain 1 month #90 12/20/21 12/23/21 Unknown Rx mg tablet tabs atorvastatin 40 mg tablet 40 mg PO BEDTIME 12/23/21 12/23/21 12/22/21 History lisinopril 20 mg tablet 20 mg PO DAILY 12/23/21 12/23/21 12/23/21 History metoprolol tartrate 50 mg tablet 50 mg PO BID 12/23/21 12/23/21 12/23/21 History Allergies Allergy/AdvReac Type Severity Reaction Status Date / Time magnesium oxide Allergy Unknown Verified 10/21/21 10:48 quinidine Allergy Unknown Verified 10/21/21 10:48 thioridazine [From [place]ellar[place]] Allergy Unknown Verified 10/21/21 10:48 PFSH Acute PFSH: Medical History (Updated 12/23/21 @ 17:53 by Parag Gutierrez MD) CAD (coronary artery disease) Chronic ulcer of left foot with fat layer exposed DJD (degenerative joint disease) Dyslipidemia Essential hypertension EtOH dependence GERD (gastroesophageal reflux disease) Hammer toe 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 Left leg DVT Neuropathy Osteoarthritis of left knee Polyarticular arthritis Polymyalgia Psoriasis Family History Father Dementia Mother Cancer BRAIN TUMOR Social History Smoking and tobacco status: current every day smoker (smokes 1 pk/day) Lives independently: Yes Household members: spouse Marital status: Current occupational status: retired Pets and animals: Yes History of recent travel: No Current gender identity: Male Vitals/I&O/Wt Last Vital Signs Temp 97.9 F 12/23/21 14:00 Pulse 87 12/23/21 14:00 Resp 16 12/23/21 14:00 BP 122/68 12/23/21 14:00 Pulse Ox 99 12/23/21 14:00 O2 Del Method 12/23/21 14:00 Weight last 48 hrs Weight 73.936 kg Weight 73.482 kg Physical Exam Narrative: General: No acute distress, AO x3, on room air HEENT: PERRLA, pupils bilaterally equal and reactive, pallor present Chest: Bronchial breath sounds b/l ,decreased air entry in lower zone, diffuse rhonchi present all over lung burgess, CVS: S1-S2 regular, no murmurs, tachycardia, no gallops, no rubs Abdomen: Soft, nontender, no organomegaly, bowel sounds present, morbidly obese Neuro: No focal deficits, no facial deformity, AO x3, power 5/5 in all limbs Extremity: Right hallux amputation, left hallux malleus deformity, right leg 1+ pitting edema, nontender, no localized erythema greater Data : 12/23/21 14:20 12/23/21 14:20 Other Labs: Radiology Impressions Chest CTA 12/23/21 14:11 IMPRESSION: 1. No evidence of pulmonary embolus. 2. Small pleural effusions with compressive atelectasis in the lung bases. 3. Small pericardial effusion. Prominent mediastinal lymph nodes likely reactive. 4. No other acute findings. Laboratory Results WBC 5.1 10^3/uL (4.0-10.0) 12/23/21 14:20 RBC 2.33 10^6/uL (4.1-5.3) L 12/23/21 14:20 Hgb 5.3 g/dL (11.7-16.6) L* 12/23/21 14:20 Hct 18.0 % (42.0-52.0) L* 12/23/21 14:20 MCV 77.3 fl (80-94) L 12/23/21 14:20 MCH 22.7 pg (28.0-34.0) L 12/23/21 14:20 MCHC 29.4 g/dL (30.0-36.0) L 12/23/21 14:20 RDW 17.2 % (12.1-15.1) H 12/23/21 14:20 Plt Count 251 10^3/cmm (130-400) 12/23/21 14:20 MPV 11.0 fL (7.4-10.4) H 12/23/21 14:20 Neut % (Auto) 60.9 % 12/23/21 14:20 Lymph % (Auto) 24.9 % 12/23/21 14:20 [place] % (Auto) 13.0 % 12/23/21 14:20 Eos % (Auto) 0.4 % 12/23/21 14:20 Baso % (Auto) 0.4 % 12/23/21 14:20 Neut # (Auto) 3.08 10^3/uL (1.8-7.7) 12/23/21 14:20 Lymph # (Auto) 1.3 10^3/uL (0.8-4.8) 12/23/21 14:20 [place] # (Auto) 0.7 10^3/uL (0.2-0.9) 12/23/21 14:20 Eos # (Auto) 0.0 10^3/uL (0.0-0.8) 12/23/21 14:20 Baso # (Auto) 0.0 10^3/uL (0.0-0.1) 12/23/21 14:20 Nucleated RBC % (auto) 0 % 12/23/21 14:20 Nucleated RBCs # 0.0 /100WBC 12/23/21 14:20 PT 16.40 SECONDS (12.1-14.9) H 12/23/21 14:27 INR 1.28 (0.8-1.2) H 12/23/21 14:27 APTT 33.6 SECONDS (23.9-36.7) 12/23/21 14:27 Sodium 130 mmol/L (136-145) L 12/23/21 14:20 Potassium 4.1 mmol/L (3.5-5.1) 12/23/21 14:20 Chloride 99 mmol/L (98-107) 12/23/21 14:20 Carbon Dioxide 20 mmol/L (22-29) L 12/23/21 14:20 Anion Gap 15.1 (5-19) 12/23/21 14:20 BUN 15 mg/dL (8-23) 12/23/21 14:20 Creatinine 0.8 mg/dL (0.7-1.2) 12/23/21 14:20 GFR Calculation Not Reportable 12/23/21 14:20 Glucose 91 mg/dL (65-115) 12/23/21 14:20 Calculated Osmolality 270 mOsm/kg (285-295) L 12/23/21 14:20 Calcium 8.6 mg/dL (8.5-10.5) 12/23/21 14:20 Total Bilirubin 0.3 mg/dL (0.15-1.2) 12/23/21 14:20 AST 13 U/L (0-40) 12/23/21 14:20 ALT 9 U/L (0-41) 12/23/21 14:20 Alkaline Phosphatase 90 U/L (40-130) 12/23/21 14:20 Total Protein 5.9 g/dL (6.6-8.7) L 12/23/21 14:20 Albumin 3.2 g/dL (3.5-5.2) L 12/23/21 14:20 Globulin 2.7 g/dL (1.3-4.6) 12/23/21 14:20 Urine Color Yellow (Yellow) 12/23/21 17:00 Urine Appearance Clear (CLEAR) 12/23/21 17:00 Urine pH 6.5 (5-7) 12/23/21 17:00 Ur Specific [place] 1.005 (1.005-1.030) 12/23/21 17:00 Urine Protein Neg (Negative) 12/23/21 17:00 Urine Glucose (UA) Norm (Normal) 12/23/21 17:00 Urine Ketones Negative (Negative) 12/23/21 17:00 Urine Blood Neg (Negative) 12/23/21 17:00 Urine Nitrate Negative (Negative) 12/23/21 17:00 Urine Bilirubin Neg (Negative) 12/23/21 17:00 Urine Urobilinogen Norm mg/dL (Negative) 12/23/21 17:00 Ur Leukocyte Esterase Negative (Negative) 12/23/21 17:00 Blood Type B Positive 12/23/21 15:12 Rho(D) Type Positive 12/23/21 15:12 Antibody Screen Negative 12/23/21 15:12 Crossmatch See Detail 12/23/21 15:12 A&P Assessment and plan (1) Acute on chronic anemia: Baseline hemoglobin seems to be running around 9.5-9.7. Currently 5.3. No actual active sign of bleeding. Could be upper GI bleed as patient seems to be on aspirin 325 mg twice daily along with Eliquis but denies of having any active melena. Stool for occult blood. Check iron panel, vitamin B12, folate level, reticulocyte count. Transfuse 2 unit of blood Protonix 40 mg twice daily, Carafate before meals and at bedtime. Status: Acute (2) Shortness of breath: CT done in the ER negative for PE. With pleural effusion, pericardial effusion, concerns for alcohol abuse in the past cannot rule out cardiomyopathy. No echocardiogram in the system. Check urine drug screen, urine Legionella, bacterial antigen, respiratory viral panel, alcohol level. Check proBNP, echocardiogram. DuoNebs every 6 hour, budesonide twice daily for now. Lasix 40 mg one-time. Strict input per charting, daily weights. Status: Acute (3) Hyponatremia: Chronic. Sodium seems to be better than baseline currently. Most likely secondary to history of alcohol abuse in the past. Continue on home salt tablet 1 daily. Status: Chronic (4) Left leg DVT: No active DVT on lower limb Dopplers done today. Hold off on anticoagulation for now given acute severe anemia. Status: Acute Plan Analgesia: [place] 1 tab every 4 hours as needed Glycemic control: Not needed, check A1c Nutrition: Regular diet CODE STATUS: Discussed in detail with the patient. DNR/DNI PUD prophylaxis: Protonix 40 mg twice daily DVT prophylaxis: Foot pumps, hold off on medical prophylaxis given acute anemia Discharge planning: Home with caregivers once medically stable Admit to [facility] with telemetry This documentation was created by [email or web address] puncher and fastener software. Every effort was made to ensure accuracy of puncher and fastener. Any obvious errors or omissions should be clarified with the author of the document. Attestations Medical Necessity Statement*: Admission for more than 2 midnights for management of acute on chronic anemia requiring blood transfusion, shortness of breath while congestive heart failure versus COPD is ruled out Time Spent in Patient Care: Greater than 35 minutes Coding Level of Care Code Acute Nursing Home Physician for Debra [facility] Diagnoses Acute on chronic anemia D64.9 Shortness of breath R06.02 Hyponatremia E87.1 Left leg DVT I82.402
[2021-12-23 18:03] LABS: Troponin 5 2HR 55.25 ng/L (0-15)
[2021-12-23 18:30] LABS: Troponin 5 2HR Delta -8.75 ABS# (0-10)
[2021-12-23 18:30] LABS: Troponin(5th) Baseline 64 ng/L (0-15)
--- NOTE | 2021-12-23 18:50 | PC.NURSE ---
patient reports that he did have a foul black stool a few days ago.
[2021-12-23 19:04] LABS: Iron 9 ug/dL (59-158); Percent Saturation 2.7 % (20-50); Total Iron Binding Capacity 326 mcg/dl; Unsaturated Iron Binding 317 ug/dL (112-347); Vitamin B12 630 pg/mL (232-1245)
[2021-12-23 19:05] LABS: Alcohol Level < 10 mg/dL (0-10)
[2021-12-23 19:26] LABS: Procalcitonin 0.09 ng/mL (0-0.5)
[2021-12-23] MEDS: sodium chloride 0.9% (100 ml) 100 ML 75 ML (19:39)
[2021-12-23] MEDS: FUROsemide 10 mg/mL SDV 4mL 40 MG IVP (20:02)
[2021-12-23] MEDS: pantoprazole 40 mg SDV IVP (20:03)
[2021-12-23 20:16] LABS: Reticulocyte % 1.5 % (0.5-2.0)
[2021-12-23] MEDS: gabapentin 300 mg Capsule PO (20:19)
[2021-12-23] MEDS: metoprolol tartrate 50 mg Tablet PO (20:19)
[2021-12-23] MEDS: ferrous gluconate 324 mg Tablet PO (20:19)
[2021-12-23] MEDS: atorvastatin 40 mg Tablet PO (20:20)
[2021-12-23] MEDS: docusate sodium 100 mg Capsule PO (20:20)
[2021-12-23] MEDS: sucralfate 1 gm Tablet PO (20:22)
[2021-12-23 21:05] LABS: Troponin 5 6HR 66.99 ng/L (0-15)
[2021-12-23 21:08] LABS: Troponin 5 6HR Delta 2.99 ng/L (0-12)
[2021-12-23 21:22] LABS: Folate Level 17.6 ng/mL (4.5-32.2)
[2021-12-23 21:25] LABS: Hepatitis A Antibody IgM Non-Reactive (Nonreactive); Hepatitis B Core AB, Total Non-Reactive (Nonreactive); Hepatitis B Surface Antigen Non-Reactive (Nonreactive); Hepatitis C Virus Antibody Non-Reactive (Nonreactive)
[2021-12-23 21:30] LABS: Hepatitis B Surface AB < 3.5 (11.5-1000)
[2021-12-23] MEDS: budesonide 0.5 mg/2 mL Neb INHALATION (21:45)
[2021-12-24] VITALS (11 sets, daily range): BP systolic 93–144; BP diastolic 57–84; PULSE 79–95; RESP 16–20; TEMP 36.6–37.3; O2SAT 89–94
[2021-12-24 00:33] LABS: HIV 1 & 2 Antibody Non-Reactive (Non-Reactiv); HIV 1 & 2 Antigen Non-Reactive (Non-Reactiv)
[2021-12-24 01:42] LABS: Amphetamines Screen Urine Negative (Negative); Barbiturates Screen Urine Negative (Negative); Benzodiazepines Screen Urine Negative (Negative); Cocaine Screen Urine Negative (Negative); Opiate Screen Urine Negative (Negative); PCP Screen Urine Negative (Negative); THC Screen Urine Positive (Negative)
[2021-12-24] MEDS: ipratropium-albuterol 3 mL Neb INHALATION ×4 (03:46→19:52)
[2021-12-24 06:10] LABS: Basophils # 0.1 10^3/uL (0.0-0.1); Basophils % 0.8 %; Eosinophils % 0.2 %; Hematocrit 26.6 % (42.0-52.0); Hemoglobin 8.1 g/dL (11.7-16.6); Lymphocytes # 1.2 10^3/uL (0.8-4.8); Lymphocytes % 18.9 %; Mean Corpuscular HGB Conc 30.5 g/dL (30.0-36.0); Mean Corpuscular Hemoglobin 24.5 pg (28.0-34.0); Mean Corpuscular Volume 80.4 fl (80-94); Mean Platelet Volume 11.5 fL (7.4-10.4); Monocytes # 0.7 10^3/uL (0.2-0.9); Monocytes % 11.3 %; Neutrophils # 4.16 10^3/uL (1.8-7.7); Neutrophils % 68.5 %; Nucleated Red Blood Cells % 0 %; Platelet Count 252 10^3/cmm (130-400); Red Blood Count 3.31 10^6/uL (4.1-5.3); Red Cell Distribution Width 17.3 % (12.1-15.1); White Blood Count 6.1 10^3/uL (4.0-10.0)
[2021-12-24] MEDS: sucralfate 1 gm Tablet PO ×4 (06:31→20:51)
[2021-12-24 06:34] LABS: Chol HDL Ratio 2.23 mg/dL (1.0-5.00); Cholesterol 107 mg/dL (0-200); HDL Cholesterol 48 mg/dL (60-100); LDL Cholesterol Calculated 46 mg/dL (50-129); Triglycerides 64 mg/dL (0-150); VLDL Cholestrol Calculation 13 mg/dL (0-30)
[2021-12-24 06:39] LABS: Alanine Aminotransferase 9 U/L (0-41); Albumin Level 3.4 g/dL (3.5-5.2); Alkaline Phosphatase 94 U/L (40-130); Anion Gap 16.9 (5-19); Aspartate Amino Transferase 16 U/L (0-40); Blood Urea Nitrogen 17 mg/dL (8-23); Calcium 8.8 mg/dL (8.5-10.5); Carbon Dioxide 20 mmol/L (22-29); Chloride 100 mmol/L (98-107); Globulin 2.6 g/dL (1.3-4.6); Glucose 84 mg/dL (65-115); Magnesium 1.9 mg/dL (1.7-2.3); Osmolality Calculated 277 mOsm/kg (285-295); Phosphorus 3.5 mg/dL (2.5-4.5); Potassium 3.9 mmol/L (3.5-5.1); Sodium 133 mmol/L (136-145); Total Bilirubin 0.5 mg/dL (0.15-1.2)
[2021-12-24 07:48] LABS: Estmated Average Glucose 97
[2021-12-24] MEDS: budesonide 0.5 mg/2 mL Neb INHALATION ×2 (07:48→19:52)
[2021-12-24] MEDS: lisinopril 20 mg Tablet PO (09:06)
[2021-12-24] MEDS: metoprolol tartrate 50 mg Tablet PO ×2 (09:06→17:34)
[2021-12-24] MEDS: gabapentin 300 mg Capsule PO ×3 (09:06→20:51)
[2021-12-24] MEDS: sodium chloride 1 gm Tablet PO (09:06)
[2021-12-24] MEDS: ferrous gluconate 324 mg Tablet PO ×2 (09:07→17:42)
[2021-12-24] MEDS: docusate sodium 100 mg Capsule PO ×2 (09:07→17:34)
[2021-12-24] MEDS: tamsulosin 0.4 mg Capsule PO (09:07)
[2021-12-24] MEDS: isosorbide mononitrate ER 30 mg Tablet PO (09:07)
[2021-12-24] MEDS: pantoprazole 40 mg SDV IVP ×2 (09:07→20:56)
--- NOTE | 2021-12-24 13:06 | PM.PN ---
Subjective Subjective: No acute vents overnight. Patient states he is feeling a lot better today. States breathing has resolved. Received treatment of blood transfusion yesterday. Hemoglobin better. Did have small bowel movement today morning. Denies any being black tarry in nature. Net 2 L negative since admission. Vitals/I&O/Wt Last Vital Signs Temp 98.5 F 12/24/21 08:00 Pulse 93 12/24/21 08:00 Resp 16 12/24/21 08:00 BP 142/84 12/24/21 08:00 Pulse Ox 90 12/24/21 08:00 O2 Del Method 12/24/21 08:00 12/23/21 12/24/21 12/24/21 22:59 06:59 14:59 Intake Total 600 / 600 700 / 1300 360 / 360 Output Total 1150 / 1150 2300 / 3450 400 / 400 Balance -550 / -550 -1600 / -2150 -40 / -40 Weight last 48 hrs Weight 79.968 kg Weight 73.936 kg Weight 73.936 kg Weight 73.482 kg Physical Exam Narrative: General: No acute distress, AO x3, on room air HEENT: PERRLA, pupils bilaterally equal and reactive, pallor present Chest: Bronchial breath sounds b/l ,decreased air entry in lower zone, diffuse rhonchi present all over lung burgess, CVS: S1-S2 regular, no murmurs, tachycardia, no gallops, no rubs Abdomen: Soft, nontender, no organomegaly, bowel sounds present, morbidly obese Neuro: No focal deficits, no facial deformity, AO x3, power 5/5 in all limbs Extremity: Right hallux amputation, left hallux malleus deformity, right leg 1+ pitting edema, nontender, no localized erythema greater Data : 12/24/21 04:49 12/24/21 04:49 Micro: Microbiology 12/24/21 05:48 Occult Blood (FIT) - Final Stool - Stool Aspirate 12/23/21 17:00 Legionella Urinary Antigen - Final Unknown Source A&P Assessment and plan (1) Acute on chronic anemia: Baseline 9.5-9.7. Post to the blood transfusion. Hemoglobin 8 today. We will target more than 8 given congestive heart failure. Appreciate iron panel, B12, folate level. Stool for occult blood positive. Protonix 40 mg twice daily, Carafate ACH S. Consulted GI for possible endoscopy. N.p.o. from midnight for EGD in a.m. Transfuse 1 unit of PRBC today. Status: Acute (2) Congestive heart failure (CHF): New diagnosis. Mixed systolic and diastolic. Acute on chronic. Echocardiogram shows an EF of 40% with diastolic dysfunction, moderate aortic stenosis, moderate aortic valve regurgitation, severe pulmonary hypertension with PASP of 80 mmHg. Compensated today. Continue with home dose of metoprolol, lisinopril, Imdur. Patient will most likely need ischemic work-up to rule out ischemic etiology. Appreciate A1c, lipid panel. Will do further Lasix after fluid status. Status: Acute Qualifiers: Heart failure type: combined systolic and diastolic Heart failure chronicity: acute on chronic Qualified Code(s): I50.43 - Acute on chronic combined systolic (congestive) and diastolic (congestive) heart failure (3) Cardiomyopathy: Status: Acute (4) Hyponatremia: Chronic. Most likely hypervolemic hyponatremia. Resolving. Continue home dose of salt tablet. Status: Chronic (5) Left leg DVT: No active DVT on lower limb Dopplers done today. Hold off on anticoagulation for now given acute severe anemia. Status: Acute (6) Aortic valve stenosis, moderate: New diagnosis. Status: Acute (7) Moderate aortic valve regurgitation: Status: Acute (8) Severe pulmonary hypertension: Status: Acute (9) Shortness of breath: Status: Acute Plan Analgesia: [place] 1 tab every 4 hours as needed Glycemic control: Not needed, check A1c Nutrition: Regular diet CODE STATUS: Discussed in detail with the patient. DNR/DNI PUD prophylaxis: Protonix 40 mg twice daily DVT prophylaxis: Foot pumps, hold off on medical prophylaxis given acute anemia Discharge planning: Home with caregivers once medically stable Admit to [facility] with telemetry This documentation was created by [email or web address] audience development manager software. Every effort was made to ensure accuracy of audience development manager. Any obvious errors or omissions should be clarified with the author of the document. Attestations Medical Necessity Statement*: Requires further hospitalization for management of acute blood loss anemia, possible GI bleed, next congestive heart failure in setting of cardiomyopathy while ischemic etiology is ruled out. Time Spent in Patient Care: Greater than 35 minutes Coding Level of Care Code Acute Terminal Block Assembler for [facility] Fwd Diagnoses Acute on chronic anemia D64.9 Congestive heart failure (CHF) I50.43 Heart failure type: combined systolic and diastolic Heart failure chronicity: acute on chronic Cardiomyopathy I42.9 Hyponatremia E87.1 Left leg DVT I82.402 Aortic valve stenosis, moderate I35.0 Moderate aortic valve regurgitation I35.1 Severe pulmonary hypertension I27.20 Shortness of breath R06.02
--- NOTE | 2021-12-24 17:43 | USCV_ITS ---
Rigo Santiago Age: 76 Gender: M : 1945 Exam Date: 12/24/2021 09:32 Ordering Phys: Parag Gutierrez MD Technologist: ZUNILDA Exam Location: [facility] [place] Indication: CHRONIC HEART FAILURE BP: 144 / 83 HR: 104 Rhythm: Sinus Technical Quality: Adequate MEASUREMENTS (Male / Female) Normal Values 2D ECHO LV Diastolic Diameter PLAX 5.8 cm 4.2 - 5.9 / 3.9 - 5.3 cm LV Systolic Diameter PLAX 4.3 cm IVS Diastolic Thickness 1.4 cm 0.6 - 1.0 / 0.6 - 0.9 cm IVS Systolic Thickness 1.8 cm LVPW Diastolic Thickness 1.4 cm 0.6 - 1.0 / 0.6 - 0.9 cm LVPW Systolic Thickness 2.0 cm LVOT Diameter 2.0 cm LV Ejection Fraction 2D Teich 51.4 % LV Ejection Fraction MOD 2C 34.0 % LV Ejection Fraction 2C AL 33.2 % LA Diameter 5.0 cm LA Width 5.5 cm LA Height 7.2 cm RA Width 4.9 cm RA Height 5.9 cm Aorta at Sinotubular Diameter 2.8 cm IVC Diameter 2.0 cm M-MODE Aortic Annulus Diameter 2.5 cm LA Ao Ratio MM 1.8 MV E Point Septal Separation 1.3 cm DOPPLER AV Peak Velocity 326.8 cm/s LVOT Peak Velocity 97.0 cm/s AV Area Cont Eq vti 0.9 cm squared AV Area Cont Eq pk 0.9 cm squared MV Peak Velocity 106.0 cm/s MV Area PHT 5.0 cm squared Mitral E to A Ratio 1.2 MV E' Velocity 46.5 cm/s Mitral E to MV E' Ratio 12.8 Mitral E to LV E' Lateral Ratio 9.7 Mitral E to LV E' Septal Ratio 19.2 TR Peak Velocity 436.7 cm/s TR Peak Gradient 76.3 mmHg TR Mean Velocity 354.8 cm/s TR Mean Gradient 58.1 mmHg TR Velocity Time Integral 128.6 cm TV Peak E Velocity 56.0 cm/s Right Atrial Pressure 3.0 mmHg Pulmonary Artery Systolic Pressu 79.3 mmHg PV Peak Velocity 92.0 cm/s RV Acceleration Time 0.1 s RV Ejection Time 0.3 s RV AcT/ET 0.3 FINDINGS Left Ventricle Normal left ventricular cavity size. Normal left ventricular wall thickness. Mildly decreased left ventricular systolic function. Global left ventricular hypokinesis. Grade I/IV diastolic dysfunction (abnormal relaxation filling pattern), normal to mildly elevated filling pressures. Left ventricular ejection fraction is estimated at 40 %. Right Ventricle Normal right ventricular size and systolic function. Severe pulmonary hypertension, RVSP 79.3 mmHg. Right Atrium The right atrium is normal in size. Left Atrium Mild LAE Mitral Valve Structurally normal mitral valve. Mild mitral valve regurgitation. Aortic Valve Moderate aortic valve calcification. [id number] aortic valve regurgitation. Moderate aortic valve stenosis, mean gradient 22.3 mmHg, JASE 0.91 cm squared. Tricuspid Valve Mild tricuspid valve regurgitation. Pulmonic Valve Pulmonic valve not well visualized. Pericardium Normal pericardium without effusion. Aorta Normal ascending aorta dimension. IVC The inferior vena cava pulmonary and hepatic veins appear normal. CONCLUSIONS Normal left ventricular cavity size. Normal left ventricular wall thickness. Mildly decreased left ventricular systolic function. Global left ventricular hypokinesis. Grade I/IV diastolic dysfunction (abnormal relaxation filling pattern), normal to mildly elevated filling pressures. Left ventricular ejection fraction is estimated at 40 %. Normal right ventricular size and systolic function. Severe pulmonary hypertension, RVSP 79.3 mmHg. Mild LAE. Structurally normal mitral valve. Mild mitral valve regurgitation. Moderate aortic valve calcification. [id number] aortic valve regurgitation. Moderate aortic valve stenosis, mean gradient 22.3 mmHg, JASE 0.91 cm squared. There are no prior echocardiogram studies to compare. Dr. Hunter Mendoza MD (Electronically Signed) Final Date: 24 December 2021 11:42 S
[2021-12-24] MEDS: atorvastatin 40 mg Tablet PO (20:51)
[2021-12-25] VITALS (20 sets, daily range): BP systolic 91–133; BP diastolic 59–81; PULSE 75–91; RESP 14–20; TEMP 36.4–37; O2SAT 89–98
[2021-12-25] MEDS: ipratropium-albuterol 3 mL Neb INHALATION ×3 (03:04→20:50)
--- NOTE | 2021-12-25 06:48 | P.ANESASSM_ITS ---
Pre-Anesthetic Assessment Height/Weight: Height 1.75 m Weight 79.968 kg Temp Pulse Resp BP Pulse Ox O2 Del Method 98.2 F 75 17 100/59 89 L 12/25/21 04:51 12/25/21 04:51 12/25/21 04:51 12/25/21 04:51 12/25/21 04:51 12/25/21 04:51 Preop Diagnosis: GI bleed Operation Date: 12/25/21 08:00 Proposed Procedures p EGD(Not Applicable) - Brandon Price MD Familial anesthetic complications: none Was Beta Ai taken within 24 hours: Yes Was Clonidine taken within 24 hours: N/A Social Alcohol (Hx of ETOH dependence (former use)) and Tobacco Exam alert, oriented x 3, clear to auscultation bilaterally and regular rate & rhythm cardiac murmur Airway Submandibular: within normal limits Cervical ROM: within normal limits Mallampati: Class I Dentition: false Pulmonary Chronic Obstructive Pulmonary Disease and Shortness of Breath CTA 12/23/21 CT/CT angio chest PE protcl [id number] IMPRESSION: ? 1.? No evidence of pulmonary embolus. 2.? Small pleural effusions with compressive atelectasis in the lung bases. 3.? Small pericardial effusion. Prominent mediastinal lymph nodes likely reactive. 4.? No other acute findings. ? CV/HEM Anemia (Acute on chronic Hgb 8.1), Coronary Artery Disease, Deep Vein Thrombosis and Hypertension No home O2, able to ascend a flight of stairs w/o CP/SOB TTE 12/24/21 CONCLUSIONS ?Normal left ventricular cavity size. Normal left ventricular ?wall thickness. Mildly decreased left ventricular systolic ?function. Global left ventricular hypokinesis. Grade I/IV ?diastolic dysfunction (abnormal relaxation filling pattern), ?normal to mildly elevated filling pressures. Left ventricular ?ejection fraction is estimated at 40 %. ?Normal right ventricular size and systolic function. Severe ?pulmonary hypertension, RVSP 79.3 mmHg. ?Mild LAE. ?Structurally normal mitral valve. Mild mitral valve ?regurgitation. ?Moderate aortic valve calcification. [id number] aortic ?valve regurgitation. Moderate aortic valve stenosis, mean ?gradient 22.3 mmHg, JASE 0.91 cm squared. ?There are no prior echocardiogram studies to compare. EKG 12/23/21 Interpretive Statements SINUS RHYTHM WITH SINUS ARRHYTHMIA NONSPECIFIC ST & T-WAVE ABNORMALITY INTERPRETATION BASED ON A DEFAULT AGE OF 40 YEARS Compared to ECG 10/09/2021 13:03:55 T-wave abnormality now present Electronically Signed On 12-24-2021 9:20:35 CDT by Hunter Mendoza M.D. [id number] Cardiomyopathy Severe pulmonary HTN Moderate and AR CHF Duplex 12/23/21 CONCLUSIONS ?No evidence of right lower extremity DVT. BPH Prostatitis Hyponatremia Na 133 Hepatic None reported GI Gastroesophageal Reflux Disease (Well controlled ) Metabolic Hyperlipidemia [facility] Osteoarthritis/DJD Chronic foot ulcer Polymyalgia Psoriasis Neuropsych Neuropathy Anesthetic Plan ASA status: 4 Anesthesia: Anesthesia Evaluation and General Other: I discussed with the patient risks, goals, and benefits of MAC and general anesthesia. We discussed spectrum of MAC anesthesia including conversion to general as well as possibility of recall of intraoperative stimuli including discomfort/pain. Patient agrees to proceed with MAC. Risk of > 500 ml blood loss (7ml/kg in children): No Other Pertinent Information Apixaban last 12/23/21 Medications/Allergies Home Medications Medication Instructions Recorded Confirmed Last Taken Type aspirin 325 mg tablet 325 mg PO BID 05/21/19 12/23/21 12/23/21 History Diabetic Shoes #1 ea 12/11/19 12/23/21 Unknown Rx amlodipine 2.5 mg tablet 2.5 mg PO DAILY 90 days #90 tabs 10/06/21 12/23/21 12/23/21 Rx gabapentin 300 mg capsule 300 mg PO TID 90 days #270 caps 10/06/21 12/23/21 12/23/21 Rx isosorbide mononitrate 30 mg 30 mg PO DAILY 90 days #90 tabs 10/06/21 12/23/21 12/23/21 Rx tablet,extended release 24 hr loratadine 10 mg tablet (Allergy 10 mg PO DAILY 90 days #90 tabs 10/06/21 12/23/21 12/23/21 Rx Relief (loratadine)) omeprazole 20 mg capsule,delayed 20 mg PO DAILY 90 days #90 caps 10/06/21 12/23/21 12/23/21 Rx release tamsulosin 0.4 mg capsule (Flomax) 0.4 mg PO DAILY 90 days #90 caps 10/06/21 12/23/21 12/23/21 Rx tizanidine 4 mg tablet 4 mg PO TID PRN muscle spasticity 10/06/21 12/23/21 Unknown Rx 90 days #270 tabs sodium chloride 1 gram tablet 1,000 mg PO DAILY 90 days #90 tabs 10/07/21 12/23/21 12/23/21 Rx polyethylene glycol 3350 17 17 g PO BID #510 grams 10/13/21 12/23/21 12/23/21 Rx gram/dose oral powder (Miralax) apixaban 5 mg tablet (Eliquis) 5 mg PO BID DVT #60 tabs 11/07/21 12/23/21 12/23/21 Rx hydrocodone 5 mg-acetaminophen 325 1 tab PO Q4H PRN pain 1 month #90 12/20/21 12/23/21 Unknown Rx mg tablet tabs atorvastatin 40 mg tablet 40 mg PO BEDTIME 12/23/21 12/23/21 12/22/21 History lisinopril 20 mg tablet 20 mg PO DAILY 12/23/21 12/23/21 12/23/21 History metoprolol tartrate 50 mg tablet 50 mg PO BID 12/23/21 12/23/21 12/23/21 History Allergies Allergy/AdvReac Type Severity Reaction Status Date / Time magnesium oxide Allergy Unknown Verified 10/21/21 10:48 quinidine Allergy Unknown Verified 10/21/21 10:48 thioridazine [From Mellaril] Allergy Unknown Verified 10/21/21 10:48 Current Medications Generic Name Dose Route Start Last Admin Trade Name Freq PRN Reason Stop Dose Admin Albuterol/Ipratropium 3 ml 12/24/21 02:00 12/25/21 03:04 Ipratropium-Albuterol 3 Ml Neb INHALATION 3 ml Q6H.RESP CEASAR Administration Atorvastatin Calcium 40 mg 12/23/21 21:00 12/24/21 20:51 Atorvastatin 40 Mg Tablet PO 40 mg BEDTIME CEASAR Administration Budesonide 0.5 mg 12/23/21 20:00 12/24/21 19:52 Budesonide 0.5 Mg/2 Ml Neb INHALATION 0.5 mg BID.RESPIRATORY CEASAR Administration Docusate Sodium 100 mg 12/23/21 20:00 12/24/21 17:34 Docusate Sodium 100 Mg Capsule PO 100 mg BID CEASAR Administration Ferrous Gluconate 324 mg 12/23/21 19:15 12/24/21 17:42 Ferrous Gluconate 324 Mg Tablet PO 324 mg BIDWM CEASAR Administration Gabapentin 300 mg 12/23/21 21:00 12/24/21 20:51 Gabapentin 300 Mg Capsule PO 300 mg TID CEASAR Administration Isosorbide Mononitrate 30 mg 12/24/21 09:00 12/24/21 09:07 Isosorbide Mononitrate Er 30 Mg Tablet PO 30 mg DAILY CEASAR Administration Lisinopril 20 mg 12/24/21 09:00 12/24/21 09:06 Lisinopril 20 Mg Tablet PO 20 mg DAILY CEASAR Administration Metoprolol Tartrate 50 mg 12/23/21 20:00 12/24/21 17:34 Metoprolol Tartrate 50 Mg Tablet PO 50 mg BID CEASAR Administration Pantoprazole Sodium 40 mg 12/23/21 20:00 12/24/21 20:56 Pantoprazole 40 Mg Sdv IVP 40 mg Q12H CEASAR Administration Sodium Chloride 1 gm 12/24/21 09:00 12/24/21 09:06 Sodium Chloride 1 Gm Tablet PO 1 gm DAILY CEASAR Administration Sucralfate 1 gm 12/23/21 21:00 12/24/21 20:51 Sucralfate 1 Gm Tablet PO 1 gm AC&BEDTIME CEASAR Administration Tamsulosin HCl 0.4 mg 12/24/21 09:00 12/24/21 09:07 Tamsulosin 0.4 Mg Capsule PO 0.4 mg DAILY CEASAR Administration [facility] Anesthesia Medical History CAD (coronary artery disease) Chronic ulcer of left foot with fat layer exposed DJD (degenerative joint disease) Dyslipidemia Essential hypertension EtOH dependence GERD (gastroesophageal reflux disease) Hammer toe 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 Left leg DVT Neuropathy Osteoarthritis of left knee Polyarticular arthritis Polymyalgia Psoriasis Family History Father Dementia Mother Cancer BRAIN TUMOR Social History Smoking and tobacco status: current every day smoker (smokes 1 pk/day) Lives independently: Yes Household members: spouse Marital status: Current occupational status: retired Pets and animals: Yes History of recent travel: No Current gender identity: Male Data Anesthesia : 12/24/21 04:49 12/24/21 04:49 Short CBC 12/23/21 12/24/21 Range/Units 14:20 04:49 WBC 5.1 6.1 (4.0-10.0) 10^3/uL Hgb 5.3 L* 8.1 L D (11.7-16.6) g/dL Hct 18.0 L* 26.6 L D (42.0-52.0) % MCV 77.3 L 80.4 (80-94) fl Plt Count 251 252 (130-400) 10^3/cmm Neut % (Auto) 60.9 68.5 % Neut # (Auto) 3.08 4.16 (1.8-7.7) 10^3/uL BMP 12/23/21 12/24/21 14:20 04:49 Sodium 130 L 133 L Potassium 4.1 3.9 Chloride 99 100 Carbon Dioxide 20 L 20 L BUN 15 17 Creatinine 0.8 0.9 Glucose 91 84 Calcium 8.6 8.8 Cardiac Enzymes 12/23/21 12/23/21 12/23/21 Range/Units 14:20 14:20 17:20 Troponin T Baseline 64 H (0-15) ng/L Troponin T 120 Minute 55.25 H (0-15) ng/L Delta Troponin T -8.75 L (0-10) ABS# Troponin T Hi Sens 6Hr (0-15) ng/L Troponin T Hi Sens 6Hr Delta (0-12) ng/L NT-Pro-B Natriuret Pep 25141 H (0-450) pg/mL 12/23/21 Range/Units 20:37 Troponin T Baseline (0-15) ng/L Troponin T 120 Minute (0-15) ng/L Delta Troponin T (0-10) ABS# Troponin T Hi Sens 6Hr 66.99 H (0-15) ng/L Troponin T Hi Sens 6Hr Delta 2.99 (0-12) ng/L NT-Pro-B Natriuret Pep (0-450) pg/mL Liver Function 12/23/21 12/24/21 Range/Units 14:20 04:49 Total Bilirubin 0.3 0.5 (0.15-1.2) mg/dL AST 13 16 (0-40) U/L ALT 9 9 (0-41) U/L Alkaline Phosphatase 90 94 (40-130) U/L Albumin 3.2 L 3.4 L (3.5-5.2) g/dL Urine 12/23/21 Range/Units 17:00 Urine Color Yellow (Yellow) Urine Appearance Clear (CLEAR) Urine pH 6.5 (5-7) Ur Specific [place] 1.005 (1.005-1.030) Urine Protein Neg (Negative) Urine Glucose (UA) Norm (Normal) Urine Ketones Negative (Negative) Urine Nitrate Negative (Negative) Urine Bilirubin Neg (Negative) Ur Leukocyte Esterase Negative (Negative) Blood Bank 12/23/21 15:12 Blood Type B Positive Rho(D) Type Positive Antibody Screen Negative Coags 12/23/21 14:27 PT 16.40 H INR 1.28 H APTT 33.6 Microbiology 12/23/21 21:15 MRSA Culture - Final Nose 12/23/21 17:00 Bacterial Antigens - Final Urine Kidney 12/24/21 05:48 Occult Blood (FIT) - Final Stool - Stool Aspirate 12/23/21 17:00 Legionella Urinary Antigen - Final Unknown Source Cardiac Studies: Echocardiogram 12/24/21
[2021-12-25] MEDS: sodium chloride 0.9% 1,000 ML 30 ML IV (08:00)
--- NOTE | 2021-12-25 08:12 | P.CONIM_ITS ---
Providers/Reason For Consult Consulting Physician/Specialty*: Endoscopist Reason for Consult*: Blood loss anemia Attending Physician: Parag Gutierrez MD Primary Care Provider: Parker Ashby DO History of Present Illness History of Present Illness Rigo Santiago is a 76 year old male who presented to the emergency room with increased shortness of breath. As a part of his evaluation a CBC was done and he was found to have severe microcytic anemia with a hemoglobin of 5.1. He has had a history of chronic anemia but his hemoglobin was greater than 9 just 2 months ago. He was recently placed on anticoagulation due to recent DVT. He did have a colonoscopy performed a little over 2 years ago according to the patient. He has not noted any benjy bleeding in his stools. Review of Systems General: Reports: 10 or more systems reviewed and unremarkable except in HPI and below Const: Denies: fever(s) Card: Denies: chest pain or irregular heart rhythm Resp: Reports: dyspnea (He states that his shortness of breath has improved since receiving blood) GI: Reports: nausea; Denies: abdominal pain, vomiting, hematemesis or coffee ground emesis Skin/Breast: Reports: other (Chronic foot ulcers.) Medications/Allergies Home Medications Medication Instructions Recorded Confirmed Last Taken Type aspirin 325 mg tablet 325 mg PO BID 05/21/19 12/23/21 12/23/21 History Diabetic Shoes #1 ea 12/11/19 12/23/21 Unknown Rx amlodipine 2.5 mg tablet 2.5 mg PO DAILY 90 days #90 tabs 10/06/21 12/23/21 12/23/21 Rx gabapentin 300 mg capsule 300 mg PO TID 90 days #270 caps 10/06/21 12/23/21 12/23/21 Rx isosorbide mononitrate 30 mg 30 mg PO DAILY 90 days #90 tabs 10/06/21 12/23/21 12/23/21 Rx tablet,extended release 24 hr loratadine 10 mg tablet (Allergy 10 mg PO DAILY 90 days #90 tabs 10/06/21 12/23/21 12/23/21 Rx Relief (loratadine)) omeprazole 20 mg capsule,delayed 20 mg PO DAILY 90 days #90 caps 10/06/21 12/23/21 12/23/21 Rx release tamsulosin 0.4 mg capsule (Flomax) 0.4 mg PO DAILY 90 days #90 caps 10/06/21 12/23/21 12/23/21 Rx tizanidine 4 mg tablet 4 mg PO TID PRN muscle spasticity 10/06/21 12/23/21 Unknown Rx 90 days #270 tabs sodium chloride 1 gram tablet 1,000 mg PO DAILY 90 days #90 tabs 10/07/21 12/23/21 12/23/21 Rx polyethylene glycol 3350 17 17 g PO BID #510 grams 10/13/21 12/23/21 12/23/21 Rx gram/dose oral powder (Miralax) apixaban 5 mg tablet (Eliquis) 5 mg PO BID DVT #60 tabs 11/07/21 12/23/21 12/23/21 Rx hydrocodone 5 mg-acetaminophen 325 1 tab PO Q4H PRN pain 1 month #90 12/20/21 12/23/21 Unknown Rx mg tablet tabs atorvastatin 40 mg tablet 40 mg PO BEDTIME 12/23/21 12/23/21 12/22/21 History lisinopril 20 mg tablet 20 mg PO DAILY 12/23/21 12/23/21 12/23/21 History metoprolol tartrate 50 mg tablet 50 mg PO BID 12/23/21 12/23/21 12/23/21 History Allergies Allergy/AdvReac Type Severity Reaction Status Date / Time magnesium oxide Allergy Unknown Verified 10/21/21 10:48 quinidine Allergy Unknown Verified 10/21/21 10:48 thioridazine [From Mellaril] Allergy Unknown Verified 10/21/21 10:48 Current Medications Generic Name Dose Route Start Last Admin Trade Name Freq PRN Reason Stop Dose Admin Albuterol/Ipratropium 3 ml 12/24/21 02:00 12/25/21 03:04 Ipratropium-Albuterol 3 Ml Neb INHALATION 3 ml Q6H.RESP CEASAR Administration Atorvastatin Calcium 40 mg 12/23/21 21:00 12/24/21 20:51 Atorvastatin 40 Mg Tablet PO 40 mg BEDTIME CEASAR Administration Budesonide 0.5 mg 12/23/21 20:00 12/24/21 19:52 Budesonide 0.5 Mg/2 Ml Neb INHALATION 0.5 mg BID.RESPIRATORY CEASAR Administration Docusate Sodium 100 mg 12/23/21 20:00 12/24/21 17:34 Docusate Sodium 100 Mg Capsule PO 100 mg BID CEASAR Administration Ferrous Gluconate 324 mg 12/23/21 19:15 12/24/21 17:42 Ferrous Gluconate 324 Mg Tablet PO 324 mg BIDWM CEASAR Administration Gabapentin 300 mg 12/23/21 21:00 12/24/21 20:51 Gabapentin 300 Mg Capsule PO 300 mg TID CEASAR Administration Isosorbide Mononitrate 30 mg 12/24/21 09:00 12/24/21 09:07 Isosorbide Mononitrate Er 30 Mg Tablet PO 30 mg DAILY CEASAR Administration Lisinopril 20 mg 12/24/21 09:00 12/24/21 09:06 Lisinopril 20 Mg Tablet PO 20 mg DAILY CEASAR Administration Metoprolol Tartrate 50 mg 12/23/21 20:00 12/24/21 17:34 Metoprolol Tartrate 50 Mg Tablet PO 50 mg BID CEASAR Administration Pantoprazole Sodium 40 mg 12/23/21 20:00 12/24/21 20:56 Pantoprazole 40 Mg Sdv IVP 40 mg Q12H CEASAR Administration Sodium Chloride 1 gm 12/24/21 09:00 12/24/21 09:06 Sodium Chloride 1 Gm Tablet PO 1 gm DAILY CEASAR Administration Sucralfate 1 gm 12/23/21 21:00 12/24/21 20:51 Sucralfate 1 Gm Tablet PO 1 gm AC&BEDTIME CEASAR Administration Tamsulosin HCl 0.4 mg 12/24/21 09:00 12/24/21 09:07 Tamsulosin 0.4 Mg Capsule PO 0.4 mg DAILY CEASAR Administration PFSH Acute PFSH: Medical History CAD (coronary artery disease) Chronic ulcer of left foot with fat layer exposed DJD (degenerative joint disease) Dyslipidemia Essential hypertension EtOH dependence GERD (gastroesophageal reflux disease) Hammer toe 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 Left leg DVT Neuropathy Osteoarthritis of left knee Polyarticular arthritis Polymyalgia Psoriasis Family History Father Dementia Mother Cancer BRAIN TUMOR Social History Smoking and tobacco status: current every day smoker (smokes 1 pk/day) Lives independently: Yes Household members: spouse Marital status: Current occupational status: retired Pets and animals: Yes History of recent travel: No Current gender identity: Male Vitals/I&O/Wt Last Vital Signs Temp 98.2 F 12/25/21 04:51 Pulse 75 12/25/21 04:51 Resp 17 12/25/21 04:51 BP 100/59 12/25/21 04:51 Pulse Ox 89 L 12/25/21 04:51 O2 Del Method 12/25/21 04:51 12/24/21 12/25/21 12/25/21 22:59 06:59 14:59 Intake Total 300 / 900 Output Total 400 / 800 250 / 1050 Balance -100 / 100 -250 / -150 Weight last 48 hrs Weight 176 lb 4.8 oz Weight 163 lb Weight 163 lb Weight 162 lb Physical Exam Const: COMMON NORMALS: no acute distress and patient oriented x3 GENERAL APPEARANCE: cooperative, comfortable and well developed HENMT: COMMON NORMALS: normocephalic and moist oral mucous membranes HEAD & SCALP: normocephalic Chest: COMMONS NORMALS: normal inspection of the chest Resp: COMMON NORMALS: normal respiratory effort and clear to auscultation bilaterally AUSCULTATION: clear to auscultation bilaterally Cardio: COMMON NORMALS: regular rate, regular rhythm, No gallops present (Cardio), No murmurs present (Cardio) and No rub (Cardio) RATE: regular rate RHYTHM: regular rhythm Extremity: COMMON NORMALS: normal to inspection Neuro: COMMON NORMALS: patient oriented x3 and no focal motor deficits Skin: COMMON NORMALS: no rashes or lesions noted GENERAL SKIN EXAM: no rashes or lesions noted Data : 12/24/21 04:49 12/24/21 04:49 Micro: Microbiology 12/23/21 21:15 MRSA Culture - Final Nose 12/23/21 17:00 Bacterial Antigens - Final Urine Kidney 12/24/21 05:48 Occult Blood (FIT) - Final Stool - Stool Aspirate A&P Assessment and plan (1) Acute on chronic anemia: The patient appears to have a drift in his hemoglobin over the last 2 years. He gradually declined and to the hemoglobin of the 9 range in September of this year and precipitously dropped to 5.3 on a visit to the ER. He was recently started on Eliquis due to a DVT, and it is possible that he had an underlying gastric ulcer that bled as a result of his anticoagulation. His anemia is microcytic so he likely has had chronic iron deficiency anemia as well. He would benefit from an EGD to evaluate any bleeding in his upper GI tract. The patient reports he had a normal colonoscopy 2-1/2 years ago, so the benefits of a colonoscopy do not outweigh the risks at this time. Depending on the results of the EGD, as well as his future hemoglobin levels, he may benefit from a colonoscopy again in the near future. We discussed the risks of bleeding, perforation, and sedation. He had no further questions and wishes to proceed. 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
--- NOTE | 2021-12-25 08:38 | ANE.PACU2 ---
Inpatient post-anesthesia follow up: Airway intact: Yes Vital signs: Temperature 97.6 F Pulse Rate 75 Respiratory Rate 18 Blood Pressure 130/81 Pulse Oximetry 96 Oxygen Delivery Me thod Nasal Cannula Oxygen Flow Rate 3 Fraction of Inspir ed Oxygen Hydration adequate: Yes Nausea and vomiting: No Pain level: 1 Mental status: Baseline
--- NOTE | 2021-12-25 08:45 | PM.MISC ---
Miscellaneous Note Purpose of Documentation: Post EGD note Note: The EGD was largely unremarkable. No etiology was noted for the patient's anemia. He did have some mild gastritis but no signs of ulcers. While his anemia appeared to have precipitously declined in the last couple of months, his blood counts have been trending down for the past 10 months. I suspect he has multiple etiologies to his current anemia. He would probably benefit from further blood work, and possibly other procedures in the future including a colonoscopy or capsule endoscopy depending on the trends of his anemia and further blood work.
[2021-12-25 09:58] LABS: Basophils # 0.1 10^3/uL (0.0-0.1); Basophils % 0.8 %; Eosinophils # 0.1 10^3/uL (0.0-0.8); Eosinophils % 1.5 %; Hemoglobin 7.8 g/dL (11.7-16.6); Lymphocytes # 1.3 10^3/uL (0.8-4.8); Lymphocytes % 20.6 %; Mean Corpuscular Hemoglobin 24.2 pg (28.0-34.0); Mean Corpuscular Volume 80.7 fl (80-94); Mean Platelet Volume 10.8 fL (7.4-10.4); Monocytes # 0.5 10^3/uL (0.2-0.9); Monocytes % 8.3 %; Neutrophils # 4.43 10^3/uL (1.8-7.7); Neutrophils % 68.5 %; Nucleated Red Blood Cells % 0 %; Platelet Count 259 10^3/cmm (130-400); Red Blood Count 3.22 10^6/uL (4.1-5.3); Red Cell Distribution Width 17.7 % (12.1-15.1); White Blood Count 6.5 10^3/uL (4.0-10.0)
[2021-12-25 10:18] LABS: Alanine Aminotransferase 9 U/L (0-41); Alkaline Phosphatase 89 U/L (40-130); Anion Gap 13.1 (5-19); Aspartate Amino Transferase 14 U/L (0-40); Blood Urea Nitrogen 19 mg/dL (8-23); Calcium 8.3 mg/dL (8.5-10.5); Carbon Dioxide 22 mmol/L (22-29); Chloride 101 mmol/L (98-107); Globulin 2.9 g/dL (1.3-4.6); Glucose 81 mg/dL (65-115); Osmolality Calculated 275 mOsm/kg (285-295); Potassium 4.1 mmol/L (3.5-5.1); Sodium 132 mmol/L (136-145); Total Bilirubin 0.5 mg/dL (0.15-1.2); Total Protein 5.9 g/dL (6.6-8.7)
--- NOTE | 2021-12-25 10:20 | ANE.PACU2 ---
Inpatient post-anesthesia follow up: Airway intact: Yes Vital signs: Temperature 98 F Pulse Rate 78 Respiratory Rate 16 Blood Pressure 126/80 Pulse Oximetry 96 Oxygen Delivery Me thod Room Air Oxygen Flow Rate 3 Fraction of Inspir ed Oxygen Hydration adequate: Yes Nausea and vomiting: No Pain level: 1 Mental status: Baseline
--- NOTE | 2021-12-25 11:22 | P.PN_ITS ---
Subjective Subjective: No acute events overnight. Today morning seen post EGD. Denies any nausea, vomiting, headache. States shortness of breath is improved. No further episodes of melena. Vitals/I&O/Wt Last Vital Signs Temp 98 F 12/25/21 08:33 Pulse 78 12/25/21 09:16 Resp 16 12/25/21 08:47 BP 126/80 12/25/21 09:16 Pulse Ox 96 12/25/21 08:47 O2 Del Method 12/25/21 08:47 O2 Flow Rate 3 12/25/21 08:33 12/24/21 12/25/21 12/25/21 22:59 06:59 14:59 Intake Total 300 / 900 200 / 200 Output Total 400 / 800 250 / 1050 Balance -100 / 100 -250 / -150 200 / 200 Weight last 48 hrs Weight 79.968 kg Weight 73.936 kg Weight 73.936 kg Weight 73.482 kg Physical Exam Narrative: General: No acute distress, AO x3, on room air HEENT: PERRLA, pupils bilaterally equal and reactive, pallor present Chest: Bronchial breath sounds b/l ,decreased air entry in lower zone, diffuse rhonchi present all over lung burgess, CVS: S1-S2 regular, no murmurs, tachycardia, no gallops, no rubs Abdomen: Soft, nontender, no organomegaly, bowel sounds present, morbidly obese Neuro: No focal deficits, no facial deformity, AO x3, power 5/5 in all limbs Extremity: Right hallux amputation, left hallux malleus deformity, right leg 1+ pitting edema, nontender, no localized erythema greater Data : 12/25/21 09:50 12/25/21 09:50 Micro: Microbiology 12/23/21 21:15 MRSA Culture - Final Nose 12/23/21 17:00 Bacterial Antigens - Final Urine Kidney A&P Assessment and plan (1) Acute on chronic anemia: Baseline 9.5-9.7.Post to the blood transfusion. Hemoglobin stable. Transfuse monitor PRBC given new diagnosis of congestive heart failure. Target more than 8 given congestive heart failure. Post EGD. Negative for any active signs of bleeding. H. pylori sent. Protonix 40 mg twice daily, Carafate ACH S. Status: Acute (2) Congestive heart failure (CHF): New diagnosis. Mixed systolic and diastolic. Acute on chronic. Echocardiogram shows an EF of 40% with diastolic dysfunction, moderate aortic stenosis, moderate aortic valve regurgitation, severe pulmonary hypertension with PASP of 80 mmHg. Compensated today. Start on oral Lasix 40 mg daily. Continue with home dose of metoprolol, lisinopril, Imdur. Patient is agreeable for ischemic work-up. N.p.o. after midnight. Lexiscan stress test in a.m. Appreciate A1c, lipid panel. Status: Acute Qualifiers: Heart failure type: combined systolic and diastolic Heart failure chronicity: acute on chronic Qualified Code(s): I50.43 - Acute on chronic c ombined systolic (congestive) and diastolic (congestive) heart failure (3) Cardiomyopathy: Status: Acute (4) Hyponatremia: Chronic. Most likely hypervolemic hyponatremia. Stable Continue home dose of salt tablet. Status: Chronic (5) Left leg DVT: No active DVT on lower limb Dopplers done today. Hold off on anticoagulation for now given acute severe anemia. Given no DVT and pulmonary embolism we will hold off on anticoagulation going further specially with anemia requiring blood transfusion Status: Acute (6) Aortic valve stenosis, moderate: New diagnosis. Status: Acute (7) Moderate aortic valve regurgitation: Status: Acute (8) Severe pulmonary hypertension: Status: Acute (9) Shortness of breath: Status: Acute Plan Analgesia: [place] 1 tab every 4 hours as needed Glycemic control: Not needed, Nutrition: Cardiac diet, fluid restriction up to 1500 cc. CODE STATUS: Discussed in detail with the patient. DNR/DNI PUD prophylaxis: Protonix 40 mg twice daily DVT prophylaxis: Foot pumps, hold off on medical prophylaxis given acute anemia Discharge planning: Home with caregivers once medically stable Admit to [facility] with telemetry This documentation was created by [employer] online marketing analyst software. Every effort was made to ensure accuracy of online marketing analyst. Any obvious errors or omissions should be clarified with the author of the document. 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
[2021-12-25] MEDS: FUROsemide 40 mg Tablet PO (11:41)
[2021-12-25] MEDS: gabapentin 300 mg Capsule PO ×2 (14:54→21:11)
--- NOTE | 2021-12-25 17:00 | PC.NURSE ---
blood transfusion that was started on 12/23 was not ended at appropriate time, this nurses ended infusion in Expanse to allow the second unit to be scanned and transfused.
[2021-12-25] MEDS: metoprolol tartrate 50 mg Tablet PO (18:36)
[2021-12-25] MEDS: ferrous gluconate 324 mg Tablet PO (18:36)
[2021-12-25] MEDS: sodium chloride 0.9% (100 ml) 100 ML (18:36)
[2021-12-25] MEDS: sucralfate 1 gm Tablet PO ×2 (18:36→21:12)
[2021-12-25] MEDS: docusate sodium 100 mg Capsule PO (18:36)
[2021-12-25] MEDS: HYDROcodone-acetaminophen 5-325 mg Tablet 1 TAB PO (18:48)
[2021-12-25] MEDS: pantoprazole 40 mg SDV IVP (20:50)
[2021-12-25] MEDS: budesonide 0.5 mg/2 mL Neb INHALATION (20:50)
[2021-12-25] MEDS: atorvastatin 40 mg Tablet PO (21:11)
[2021-12-26] VITALS (11 sets, daily range): BP systolic 100–136; BP diastolic 58–94; PULSE 63–95; RESP 14–18; TEMP 36.6–36.8; O2SAT 90–100
[2021-12-26] MEDS: ipratropium-albuterol 3 mL Neb INHALATION ×3 (02:51→15:30)
[2021-12-26 03:19] LABS: Basophils # 0.1 10^3/uL (0.0-0.1); Eosinophils # 0.2 10^3/uL (0.0-0.8); Eosinophils % 3.4 %; Hematocrit 27.7 % (42.0-52.0); Hemoglobin 8.4 g/dL (11.7-16.6); Lymphocytes # 1.6 10^3/uL (0.8-4.8); Lymphocytes % 25.5 %; Mean Corpuscular HGB Conc 30.3 g/dL (30.0-36.0); Mean Corpuscular Hemoglobin 24.6 pg (28.0-34.0); Mean Corpuscular Volume 81.2 fl (80-94); Mean Platelet Volume 10.5 fL (7.4-10.4); Monocytes # 0.7 10^3/uL (0.2-0.9); Monocytes % 10.7 %; Neutrophils # 3.64 10^3/uL (1.8-7.7); Neutrophils % 59.2 %; Nucleated Red Blood Cells % 0 %; Platelet Count 229 10^3/cmm (130-400); Red Blood Count 3.41 10^6/uL (4.1-5.3); Red Cell Distribution Width 17.8 % (12.1-15.1); White Blood Count 6.2 10^3/uL (4.0-10.0)
[2021-12-26 03:24] LABS: Alanine Aminotransferase 10 U/L (0-41); Albumin Level 2.7 g/dL (3.5-5.2); Alkaline Phosphatase 78 U/L (40-130); Anion Gap 13.2 (5-19); Aspartate Amino Transferase 13 U/L (0-40); Blood Urea Nitrogen 23 mg/dL (8-23); Calcium 8.3 mg/dL (8.5-10.5); Carbon Dioxide 22 mmol/L (22-29); Chloride 104 mmol/L (98-107); Globulin 2.8 g/dL (1.3-4.6); Glucose 77 mg/dL (65-115); Osmolality Calculated 282 mOsm/kg (285-295); Potassium 4.2 mmol/L (3.5-5.1); Sodium 135 mmol/L (136-145); Total Bilirubin 0.7 mg/dL (0.15-1.2); Total Protein 5.5 g/dL (6.6-8.7)
--- NOTE | 2021-12-26 06:30 | ECG_ITS ---
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 Interpretive Statements NAME OF STUDY: LEXISCAN SESTAMIBI STRESS TEST INDICATION: New low ef, PROCEDURE: At the baseline, the EKG revealed normal sinus rhythm with some nonspecific T wave changes. The baseline heart was 115/76 bpm with a blood pressue of 71 mm of Hg Lexiscan was infused over a period of 20 seconds. A total of 0.4 milligrams of Lexiscan was infused. The stress phase was continued for a total of 5 minutes. Heart rate at the end of the stress phase was 88 bpm with a blood pressure 91/55 mm Hg. The EKG at the peak infusion revealed no significant changes. Sestamibi was injected 20 seconds after the Lexiscan infusion. Heart rate at the end of the recovery phase was 89 bpm with a blood pressure of 100/58 mm of Hg. CONCLUSION: 1. No significant EKG changes with the LexiScan infusion 2. No LexiScan induced chest pain or cardiac arrhythmia 3. Normal blood pressure and heart rate response 4. Sestamibi/sestamibi perfusion scan pending; see separate report. Electronically Signed On 12-28-2021 17:43:11 CDT by Irma Navarrete M.D. [email or web address]
[2021-12-26] MEDS: budesonide 0.5 mg/2 mL Neb INHALATION (09:41)
[2021-12-26] MEDS: tamsulosin 0.4 mg Capsule PO (09:45)
[2021-12-26] MEDS: gabapentin 300 mg Capsule PO ×2 (09:45→16:19)
[2021-12-26] MEDS: metoprolol tartrate 50 mg Tablet PO (09:45)
[2021-12-26] MEDS: sodium chloride 1 gm Tablet PO (09:45)
[2021-12-26] MEDS: ferrous gluconate 324 mg Tablet PO (09:45)
[2021-12-26] MEDS: lisinopril 20 mg Tablet PO (09:45)
[2021-12-26] MEDS: FUROsemide 40 mg Tablet PO (09:46)
[2021-12-26] MEDS: docusate sodium 100 mg Capsule PO (09:46)
[2021-12-26] MEDS: pantoprazole 40 mg SDV IVP (09:47)
[2021-12-26] MEDS: isosorbide mononitrate ER 30 mg Tablet PO (09:47)
[2021-12-26] MEDS: sucralfate 1 gm Tablet PO ×2 (09:51→12:55)
[2021-12-26 10:17] LABS: H. Pylori / CLO Test Negative
--- NOTE | 2021-12-26 11:19 | NMCV_ITS ---
NM shameka perf SPECT r/s* [id number] Rigo Santiago Age: 76 Gender: M : 1945 Exam Date: 12/26/2021 10:50 Ordering Phys: Parag Gutierrez MD Technologist: TURNER Soto Exam Location: [facility] Indications: CHEST PAIN STRESS TEST Please [facility] IMAGE PROTOCOL Rest/Stress 1 Lexiscan Day Radiopharmaceutical Dose (mCi) Administration Site Administered by Rest: Tc-99m 11.0 IV TURNER Rosenberg Sestamibi Stress:Tc-99m 32.9 IV TURNER Rosenberg Sestamibi Rest: 26-Dec-2021 60 Discovery 630 Stress: 26-Dec-2021 30 Discovery 630 0.4mg Lexiscan. Supine position only as patient was unable to lay prone. SPECT RESULTS Technical Quality: Excellent Raw Data Analysis: Normal Image Corrections: No attenuation or motion correction applied Summed Stress Score: 16 Summed Rest Score: 5 Summed Difference Score: 11 PERFUSION FINDINGS Moderate to severely decreased tracer uptake in the basal mid and apical inferior, mid inferolateral, mid inferoseptal, apical lateral and LV apex. Significant reversibility was noted in these regions except at the apex and the apical inferior regions. FUNCTIONAL RESULTS (calculated via Gated SPECT) Stress Image LV EF (%): 37 Stress EDV (mL):197 TID: 0.98 Stress ESV (mL):125 FUNCTIONAL FINDINGS: Segmental wall motion analysis revealed severe diffuse hypokinesia of the septum and the LV apex. IMPRESSIONS 1. Myocardial perfusion imaging revealing moderate area of moderate to severely decreased tracer uptake in the inferior, inferolateral, inferoseptal and apex, with a significant reversibility, suggesting myocardial ischemia in the distribution of the right coronary artery predominantly with some involvement of the left circumflex artery. 2. Diminished LV ejection fraction 37%. 3. LV wall motion analysis revealing severe diffuse hypokinesia of the septum and LV apex 4. Moderately dilated LV cavity with an end-systolic volume of 125 mL. No similar previous studies are available for comparison Dr Irma Navarrete MD [facility] (Electronically Signed) Final Date: 26 December 2021 13:23 S
--- NOTE | 2021-12-26 13:22 | PC.SOCIAL ---
IMM Update pg 2 of IMM updated and reviewed w/ patient. Copy provided and Copy dated and initialed and placed in chart.
--- NOTE | 2021-12-26 13:33 | P.DS_ITS ---
Discharge Providers Date of Admission: 12/23/21 17:11 Date of Discharge: December 26, 2021 Attending Provider at Admission: Karen Ramirez MD Attending Provider at Discharge: Parag Gutierrez MD Consults: GI: Dr. Price Cardiology: Dr. Woods Primary Care Provider: Parker Ashby DO Diagnoses at Discharge Discharge Diagnosis (1) Acute on chronic anemia: Status: Acute (2) Congestive heart failure (CHF): Status: Acute Qualifiers: Heart failure type: combined systolic and diastolic Heart failure chronicity: acute on chronic Qualified Code(s): I50.43 - Acute on chronic combined systolic (congestive) and diastolic (congestive) heart failure (3) Cardiomyopathy: Status: Acute (4) Hyponatremia: Status: Chronic (5) Left leg DVT: Status: Acute (6) Aortic valve stenosis, moderate: Status: Acute (7) Moderate aortic valve regurgitation: Status: Acute (8) Severe pulmonary hypertension: Status: Acute (9) Shortness of breath: Status: Acute Reason for Visit Reason for Visit: R LEG PAIN & EDEMA Hospital Course Hospital Course Rigo Santiago is a 76 year old male with past medical history of hypertension, remote history of alcohol abuse around 20 years ago, current everyday smoker, polymyalgia, recent diagnosis of left posterior tibial vein DVT who was recently started on Eliquis came to the ER today because of swelling of her right leg which started today morning along with some pain.? Patient states around 2 days ago he was sitting up in chair when he all of a sudden started having shortness of breath which is getting aggravated on laying down.? Since then he has been having generalized body pains but denies any shortness of breath.? At baseline he is able to walk around in his yard without any difficulty but for last 2 days has been having the difficulty with shortness of breath on walking.? Denies any chest pain.? States usually he is homebound.? Denies any nausea, vomiting, headache, dizziness.? Last bowel movement was 2 days ago which was brownish blackish well-formed in nature.? Denies any hematemesis, bleeding from anywhere else. Blood work in the ER showed a white count of 5, hemoglobin of 5.3, INR 1.2, sodium of 130, creatinine of 0.8, AST/ALT of 13/9, UA negative for any signs of infection, lower limb Dopplers negative for DVT, CTA as below. Patient was admitted to the hospital further evaluation and management of acute anemia. On admission he has clinical signs of congestive heart failure for which she was started on IV diuresis. He responded well to the treatment and was back to baseline breathing the next morning. During hospitalization he underwent lower limb Dopplers and CTA which is negative for VTE. GI was consulted and he underwent endoscopy which was considered with gastritis but negative for any active bleeding. He received 2 unit of blood transfusion. His hemoglobin remained stable. Did not have any further melena during hospitalization. He underwent echocardiogram which is consistent with EF 40%, grade 1 diastolic dysfunction, severe pulmonary hypertension, moderate aortic stenosis and aortic regurgitation. For concerns for ischemic etiology underwent Lexiscan stress test which was positive for reversible ischemia. Patient was counseled for need of angiogram for a possible revascularization. Patient states he understand the need arise vascularization but would want to go back home before getting the angiogram done as he is worried about his estate. He is agreeable for cardiology follow-up as an outpatient. Dr. Woods was consulted prior to patient going so he can be scheduled for a cardiac angiogram as an outpatient. He is been discharged on oral aspirin 81 mg daily, statin, metoprolol, lisinopril, Imdur. Dose of aspirin has been changed from 325 mg twice daily to 81 mg daily. Eliquis has been stopped. He is to follow-up with his primary care provider within next 1 week for repeat CBC. He is to continue taking Protonix 40 mg twice daily along with Carafate before meals and at bedtime. He will be scheduled for cardiac angiogram with Dr. Woods. Patient verbalized understanding and is agreeable. Physical Exam Narrative: General: No acute distress, AO x3, on room air HEENT: PERRLA, pupils bilaterally equal and reactive, pallor present Chest: Bronchial breath sounds b/l ,decreased air entry in lower zone, diffuse rhonchi present all over lung burgess, CVS: S1-S2 regular, ESM at aortic region, EDM at aortic radiating to apex, tachycardia, no gallops, no rubs Abdomen: Soft, nontender, no organomegaly, bowel sounds present, morbidly obese Neuro: No focal deficits, no facial deformity, AO x3, power 5/5 in all limbs Extremity: Right hallux amputation, left hallux malleus deformity, right leg 1+ pitting edema, nontender, no localized erythema greater Discharge Data Studies Completed and Pending Completed Studies During Hospitalization Category Date Time Status CT PE [CT angio chest PE protcl [id number]] Stat Cat Scan 12/23/21 14:11 Completed Sestamibi Stress Test Request Routine Exams 12/26/21 06:30 Draft NM shameka perf SPECT r/s* [id number] Routine Nuc Med 12/26/21 11:19 [place] [id number] Stat Ultrasound 12/23/21 14:11 Completed CV. echo complete* [id number] Routine Ultrasound 12/24/21 17:43 Completed Pending at discharge Category Date Time Status Sestamibi Stress Test Request Routine Exams 12/25/21 11:18 Stop Req Respiratory Viral Panel PCR Stat Lab 12/23/21 23:28 Received Radiology Impressions Chest CTA 12/23/21 14:11 IMPRESSION: 1. No evidence of pulmonary embolus. 2. Small pleural effusions with compressive atelectasis in the lung bases. 3. Small pericardial effusion. Prominent mediastinal lymph nodes likely reactive. 4. No other acute findings. Echocardiogram: ?CONCLUSIONS ?Normal left ventricular cavity size. Normal left ventricular ?wall thickness. Mildly decreased left ventricular systolic ?function. Global left ventricular hypokinesis. Grade I/IV ?diastolic dysfunction (abnormal relaxation filling pattern), ?normal to mildly elevated filling pressures. Left ventricular ?ejection fraction is estimated at 40 %. ?Normal right ventricular size and systolic function. Severe ?pulmonary hypertension, RVSP 79.3 mmHg. ?Mild LAE. ?Structurally normal mitral valve. Mild mitral valve ?regurgitation. ?Moderate aortic valve calcification. [id number] aortic ?valve regurgitation. Moderate aortic valve stenosis, mean ?gradient 22.3 mmHg, JASE 0.91 cm squared. ?There are no prior echocardiogram studies to compare. ?Dr. Hunter Mendoza MD ?(Electronically Signed) ?Final Date:? ? ? 24 December 2021 ? 11:42 Lexiscan stress test: PERFUSION FINDINGS ?Moderate to severely decreased tracer uptake in the basal mid and apical?inferior, mid inferolateral, mid inferoseptal, apical lateral and LV apex.? ?Significant reversibility was noted in these regions except at the apex and the?apical inferior regions. ?FUNCTIONAL RESULTS ? ? (calculated via Gated SPECT) ? Stress Image LV EF (%):? ? 37 ? Stress EDV (mL):197? TID:? 0.98 ? Stress ESV (mL):125 ?FUNCTIONAL FINDINGS: ?Segmental wall motion analysis revealed severe diffuse hypokinesia of the?septum and the LV apex. ?IMPRESSIONS ?1.? Myocardial perfusion imaging revealing moderate area of moderate to?severely decreased tracer uptake in the inferior, inferolateral, inferoseptal?and apex, with a significant reversibility, suggesting myocardial ischemia in?the distribution of the right coronary artery predominantly with some?involvement of the left circumflex artery. ?2.? Diminished LV ejection fraction 37%. ?3.? LV wall motion analysis revealing severe diffuse hypokinesia of the septum?and LV apex ?4.? Moderately dilated LV cavity with an end-systolic volume of 125 mL. ?No similar previous studies are available for comparison ?Dr Irma Navarrete MD [facility] ?(Electronically Signed) ?Final Date:? ? ? 26 December 2021 ? 13:23 Lower limb Doppler FINDINGS: ?No evidence of DVT seen in any vessel visualized at this time. ?Edema seen in Righ Lower Leg ?CONCLUSIONS ?No evidence of right lower extremity DVT. ?Suleman Mcfarlane MD ?(Electronically Signed) ?Final Date:? ? ? 23 December 2021 ? 16:12 Laboratory Results WBC 6.2 10^3/uL (4.0-10.0) 12/26/21 02:44 RBC 3.41 10^6/uL (4.1-5.3) L 12/26/21 02:44 Hgb 8.4 g/dL (11.7-16.6) L 12/26/21 02:44 Hct 27.7 % (42.0-52.0) L 12/26/21 02:44 MCV 81.2 fl (80-94) 12/26/21 02:44 MCH 24.6 pg (28.0-34.0) L 12/26/21 02:44 MCHC 30.3 g/dL (30.0-36.0) 12/26/21 02:44 RDW 17.8 % (12.1-15.1) H 12/26/21 02:44 Plt Count 229 10^3/cmm (130-400) 12/26/21 02:44 MPV 10.5 fL (7.4-10.4) H 12/26/21 02:44 Neut % (Auto) 59.2 % 12/26/21 02:44 Lymph % (Auto) 25.5 % 12/26/21 02:44 Coles % (Auto) 10.7 % 12/26/21 02:44 Eos % (Auto) 3.4 % 12/26/21 02:44 Baso % (Auto) 1.0 % 12/26/21 02:44 Reticulocyte % (Auto) 1.5 % (0.5-2.0) 12/23/21 14:20 Neut # (Auto) 3.64 10^3/uL (1.8-7.7) 12/26/21 02:44 Lymph # (Auto) 1.6 10^3/uL (0.8-4.8) 12/26/21 02:44 Coles # (Auto) 0.7 10^3/uL (0.2-0.9) 12/26/21 02:44 Eos # (Auto) 0.2 10^3/uL (0.0-0.8) 12/26/21 02:44 Baso # (Auto) 0.1 10^3/uL (0.0-0.1) 12/26/21 02:44 Nucleated RBC % (auto) 0 % 12/26/21 02:44 Nucleated RBCs # 0.0 /100WBC 12/26/21 02:44 PT 16.40 SECONDS (12.1-14.9) H 12/23/21 14:27 INR 1.28 (0.8-1.2) H 12/23/21 14:27 APTT 33.6 SECONDS (23.9-36.7) 12/23/21 14:27 Sodium 135 mmol/L (136-145) L 12/26/21 02:44 Potassium 4.2 mmol/L (3.5-5.1) 12/26/21 02:44 Chloride 104 mmol/L (98-107) 12/26/21 02:44 Carbon Dioxide 22 mmol/L (22-29) 12/26/21 02:44 Anion Gap 13.2 (5-19) 12/26/21 02:44 BUN 23 mg/dL (8-23) 12/26/21 02:44 Creatinine 0.8 mg/dL (0.7-1.2) 12/26/21 02:44 GFR Calculation Not Reportable 12/26/21 02:44 Glucose 77 mg/dL (65-115) 12/26/21 02:44 Estimat Average Glucose 97 12/23/21 14:10 Hemoglobin A1c 5.0 % (4.0-6.0) 12/23/21 14:10 Calculated Osmolality 282 mOsm/kg (285-295) L 12/26/21 02:44 Calcium 8.3 mg/dL (8.5-10.5) L 12/26/21 02:44 Phosphorus 3.5 mg/dL (2.5-4.5) 12/24/21 04:49 Magnesium 1.9 mg/dL (1.7-2.3) 12/24/21 04:49 Iron 9 ug/dL (59-158) L 12/23/21 14:20 TIBC 326 mcg/dl 12/23/21 14:20 % Saturation 2.7 % (20-50) L 12/23/21 14:20 Unsat Iron Binding 317 ug/dL (112-347) 12/23/21 14:20 Total Bilirubin 0.7 mg/dL (0.15-1.2) 12/26/21 02:44 AST 13 U/L (0-40) 12/26/21 02:44 ALT 10 U/L (0-41) 12/26/21 02:44 Alkaline Phosphatase 78 U/L (40-130) 12/26/21 02:44 Troponin T Baseline 64 ng/L (0-15) H 12/23/21 14:20 Troponin T 120 Minute 55.25 ng/L (0-15) H 12/23/21 17:20 Delta Troponin T -8.75 ABS# (0-10) L 12/23/21 17:20 Troponin T Hi Sens 6Hr 66.99 ng/L (0-15) H 12/23/21 20:37 Troponin T Hi Sens 6Hr Delta 2.99 ng/L (0-12) 12/23/21 20:37 NT-Pro-B Natriuret Pep 78368 pg/mL (0-450) H 12/23/21 14:20 Total Protein 5.5 g/dL (6.6-8.7) L 12/26/21 02:44 Albumin 2.7 g/dL (3.5-5.2) L 12/26/21 02:44 Globulin 2.8 g/dL (1.3-4.6) 12/26/21 02:44 Triglycerides 64 mg/dL (0-150) 12/24/21 04:49 Cholesterol 107 mg/dL (0-200) 12/24/21 04:49 LDL Cholesterol, Calc 46 mg/dL (50-129) L 12/24/21 04:49 Total VLDL Cholesterol 13 mg/dL (0-30) 12/24/21 04:49 HDL Cholesterol 48 mg/dL (60-100) L 12/24/21 04:49 Cholesterol/HDL Ratio 2.23 mg/dL (1.0-5.00) 12/24/21 04:49 Vitamin B12 630 pg/mL (232-1245) 12/23/21 14:20 Folate 17.6 ng/mL (4.5-32.2) 12/23/21 20:37 Procalcitonin 0.09 ng/mL (0-0.5) 12/23/21 14:20 TSH 1.50 uIU/mL (0.27-4.20) 12/23/21 14:20 Urine Color Yellow (Yellow) 12/23/21 17:00 Urine Appearance Clear (CLEAR) 12/23/21 17:00 Urine pH 6.5 (5-7) 12/23/21 17:00 Ur Specific [place] 1.005 (1.005-1.030) 12/23/21 17:00 Urine Protein Neg (Negative) 12/23/21 17:00 Urine Glucose (UA) Norm (Normal) 12/23/21 17:00 Urine Ketones Negative (Negative) 12/23/21 17:00 Urine Blood Neg (Negative) 12/23/21 17:00 Urine Nitrate Negative (Negative) 12/23/21 17:00 Urine Bilirubin Neg (Negative) 12/23/21 17:00 Urine Urobilinogen Norm mg/dL (Negative) 12/23/21 17:00 Ur Leukocyte Esterase Negative (Negative) 12/23/21 17:00 Urine Opiates Screen Negative ng/mL (Negative) 12/23/21 17:00 Ur Barbiturates Screen Negative ng/mL (Negative) 12/23/21 17:00 Ur Phencyclidine Scrn Negative ng/mL (Negative) 12/23/21 17:00 Ur Amphetamines Screen Negative ng/mL (Negative) 12/23/21 17:00 U Benzodiazepines Scrn Negative ng/mL (Negative) 12/23/21 17:00 Urine Cocaine Screen Negative ng/mL (Negative) 12/23/21 17:00 U Marijuana (THC) Screen Positive ng/mL (Negative) H 12/23/21 17:00 Ethyl Alcohol < 10 mg/dL (0-10) 12/23/21 14:20 H. pylori IgG Antibody Negative 12/25/21 08:29 Hepatitis A IgM Ab Non-reactive (Nonreactive) 12/23/21 20:37 Hep Bs Antigen Non-reactive (Nonreactive) 12/23/21 20:37 Hep Bs Antibody < 3.5 (11.5-1000) L 12/23/21 20:37 Hep B Core Total Ab Non-reactive (Nonreactive) 12/23/21 20:37 Hepatitis C Antibody Non-reactive (Nonreactive) 12/23/21 20:37 HIV 1&2 Ab & HIV 1 Ag Non-reactive (Non-Reactiv) 12/23/21 20:37 HIV 1&2 Antibody Non-reactive (Non-Reactiv) 12/23/21 20:37 Blood Type B Positive 12/23/21 15:12 Rho(D) Type Positive 12/23/21 15:12 Antibody Screen Negative 12/23/21 15:12 Crossmatch See Detail 12/23/21 15:12 Vitals Last Vital Signs Temp 98.3 F 12/26/21 07:52 Pulse 83 12/26/21 11:50 Resp 16 12/26/21 09:43 BP 100/58 12/26/21 11:50 Pulse Ox 93 12/26/21 09:43 O2 Del Method 12/26/21 09:43 O2 Flow Rate 3 12/25/21 08:33 Discharge Plan Discharge Patient Disposition: Home Condition: Stable Prescriptions: New ferrous gluconate 324 mg (37.5 mg iron) Tablet 324 mg PO BIDWM Qty: 60 0RF furosemide 40 mg Tablet 40 mg PO DAILY@0800 Qty: 30 0RF pantoprazole [Protonix] 40 mg tablet,delayed release (DR/EC) 40 mg PO BID 28 Days Qty: 56 0RF sucralfate [Carafate] 1 gram tablet 1 g PO TID 28 Days Qty: 84 0RF aspirin [Adult Aspirin Regimen] 81 mg tablet,delayed release (DR/EC) 81 mg PO DAILY Qty: 30 0RF Continued (DME) Diabetic Shoes See Rx Instructions .ROUTE .MEDSUPPLY Qty: 1 0RF Rx Instructions: As directed gabapentin 300 mg capsule 300 mg PO TID 90 Days Qty: 270 1RF isosorbide mononitrate 30 mg tablet extended release 24 hr 30 mg PO DAILY 90 Days Qty: 90 1RF loratadine [Allergy Relief (loratadine)] 10 mg tablet 10 mg PO DAILY 90 Days Qty: 90 1RF tamsulosin [Flomax] 0.4 mg capsule 0.4 mg PO DAILY 90 Days Qty: 90 1RF tizanidine 4 mg tablet 4 mg PO TID PRN (Reason: muscle spasticity) 90 Days Qty: 270 1RF polyethylene glycol 3350 [Miralax] 17 gram/dose powder 17 g PO BID Qty: 510 5RF sodium chloride 1 gram tablet 1,000 mg PO DAILY 90 Days Qty: 90 1RF hydrocodone-acetaminophen 5-325 mg tablet 1 tab PO Q4H MDD 3 tabs per day PRN (Reason: pain) 30 Days Qty: 90 0RF atorvastatin 40 mg tablet 40 mg PO BEDTIME metoprolol tartrate 50 mg tablet 50 mg PO BID lisinopril 20 mg tablet 20 mg PO DAILY Discontinued aspirin 325 mg tablet 325 mg PO BID amlodipine 2.5 mg tablet 2.5 mg PO DAILY 90 Days Qty: 90 1RF omeprazole 20 mg capsule,delayed release(DR/EC) 20 mg PO DAILY 90 Days Qty: 90 1RF Eliquis 5 mg tablet 5 mg PO BID Qty: 60 2RF Discharge Orders: Discharge Order (Routine); Ordered 12/26/21 Ordered By: Parag Gutierrez Referrals: Tom Woods M.D [Physician] - 2 weeks Parker Ashby DO [Primary Care Provider] - 01/19/22 1:40 pm Discharge Diet: Cardiac Discharge Activity: Resume usual activity and Increase activity as tolerated Patient Instructions: GI Discharge Instructions, Opioid Safety Activity Restrictions/Additional Instructions: Do not take Eliquis anymore. Dose of aspirin has been changed to 81 mg daily. Take Protonix 2 times daily for next 4 weeks along with Carafate with meals and at night for next 4 weeks at the least. Continue taking your lisinopril, metoprolol, Imdur as before. Please follow-up with a primary care provider within next 1 week for repeat CBC. Please follow-up with Dr. Ahn for cardiac angiogram. Discharge Attestations Time Spent in Discharge Care*: greater than 30 min Specific Discharge Activities: educating patient, discussing with pcp/other providers, discussing with child support case officer/social workers/dc planners, documenting/other paperwork and evaluating patient/reviewing data Status at Discharge: Cognitive status at discharge: cognitively intact , Behavioral status at discharge: cooperative , Functional status at discharge: independent ambulation , Overall status at discharge: patient is back to baseline Quality Metrics Clinical Quality Measures [ No reported AMI, CVA or VTE this stay] Coding Level of Care Code Acute Chg DC note Diagnoses Acute on chronic anemia D64.9 Congestive heart failure (CHF) I50.43 Heart failure type: combined systolic and diastolic Heart failure chronicity: acute on chronic Cardiomyopathy I42.9 Hyponatremia E87.1 Left leg DVT I82.402 Aortic valve stenosis, moderate I35.0 Moderate aortic valve regurgitation I35.1 Severe pulmonary hypertension I27.20 Shortness of breath R06.02
--- NOTE | 2021-12-26 17:15 | PC.NURSE ---
Patient left the floor before Dr. Woods could visit with patient. Dr. Woods spoke with the primary caregiver -power of civil attorney for patient briefly. This nurse went over discharge, new medications, continued medications, stopped medications and follow up appointments. Patient did have a follow up appoint with Dr. Woods's office on the follow up list. Primary school child care attendant verbalized understanding and signed discharge paperwork.
== END 2021-12-26 15:00 | disposition home or self-care (01) | DRG 811 ==
LOC: ER 17:10 → MEDSURG 17:30
PROVIDERS: Family Medicine; Physician Assistant; Admitting Provider Student in an Organized Health Care Education/Training Program; Emergency Provider Emergency Medicine; PCP Family Medicine; Visit Provider Student in an Organized Health Care Education/Training Program
PROC: 0DJ08ZZ Inspection of Upper Intestinal Tract, Via Natural or Artificial Opening Endoscopic (ICD-10-PCS; CPT 43235; principal; 2021-12-25 08:00)
DX: D62 Acute posthemorrhagic anemia (principal); I50.43 Acute on chronic combined systolic (congestive) and diastolic (congestive) heart failure; K29.51 Unspecified chronic gastritis with bleeding; E87.1 Hypo-osmolality and hyponatremia; I42.9 Cardiomyopathy, unspecified; D50.9 Iron deficiency anemia, unspecified; I11.0 Hypertensive heart disease with heart failure; I35.0 Nonrheumatic aortic (valve) stenosis; I35.1 Nonrheumatic aortic (valve) insufficiency; I27.20 Pulmonary hypertension, unspecified; I25.10 Atherosclerotic heart disease of native coronary artery without angina pectoris; E78.5 Hyperlipidemia, unspecified; K21.9 Gastro-esophageal reflux disease without esophagitis; G62.9 Polyneuropathy, unspecified; F17.210 Nicotine dependence, cigarettes, uncomplicated; M35.3 Polymyalgia rheumatica; J44.9 Chronic obstructive pulmonary disease, unspecified; M79.89 Other specified soft tissue disorders; M79.604 Pain in right leg; Z86.718 Personal history of other venous thrombosis and embolism; Z79.01 Long term (current) use of anticoagulants; Z89.411 Acquired absence of right great toe; Z79.82 Long term (current) use of aspirin; Z66 Do not resuscitate; Z86.59 Personal history of other mental and behavioral disorders
CPT/HCPCS: 12345; 36415; 36430; 43239; 71275; 78452; 80053; 80061; 80306; 80307; 81003; 82274; 82607; 82746; 83036; 83540; 83550; 83735; 83880; 84100; 84145; 84443; 84484; 85025; 85045; 85610; 85730; 86403; 86705; 86706; 86709; 86803; 86850; 86900; 86920; 87077; 87340; 87449; 87633; 87641; 87806; 88305; 88342; 93005; 93017; 93306; 93971; 94640; 94664; 99285; A9500; C9113; J1940; J2704; J7030; J7626; P9016; Q9967

== ENCOUNTER 2022-04-19 18:29 | Emergency (ER) | payer MEDICARE, MEDICAID, SELFPAY ==
[2022-04-19 18:39] VITALS: BP 94/65; PULSE 88; RESP 15; TEMP 36.8; O2SAT 97
[2022-04-19] MEDS: amoxicillin-clav 875-125 mg Tablet 1 TAB PO (19:01)
[2022-04-19] MEDS: mupirocin oint 22 gm 1 APPLIC TOPICAL (19:01)
--- NOTE | 2022-04-19 19:01 | W.ED.WOUNDLC ---
HPI - Wound/Laceration General: Chief Complaint: Wound/Laceration Stated Complaint: spot on back Time Seen by Provider: 04/19/22 18:47 History of Present Illness: 76-year-old male patient comes in for a area of redness and tenderness to the mid back. Patient is noticed it for the last 2 weeks. Family had look at it tonight and was concerned of it being infected and needing some antibiotics. Patient has a history of multiple illnesses, cardiomyopathy, polyarthralgia, hypertension, and psoriasis. 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 Left leg DVT Neuropathy Osteoarthritis of left knee Polyarticular arthritis Polymyalgia Psoriasis Family History Father Dementia Mother Cancer BRAIN TUMOR Social History Smoking and tobacco status: current every day smoker (smokes 1 pk/day) Lives independently: Yes Household members: spouse Marital status: Current occupational status: retired Pets and animals: Yes History of recent travel: No Current gender identity: Male Physical Exam Const: COMMON NORMALS: alert HENMT: COMMON NORMALS: normocephalic HEAD & SCALP: normocephalic Neck/C-Spine: COMMON NORMALS: full ROM Resp: COMMON NORMALS: normal respiratory effort Cardio: COMMON NORMALS: regular rate RATE: regular rate Neuro: SENSORIUM/ORIENTATION: Yes alert Skin: NARRATIVE SKIN EXAM: Psoriatic patch lesions are noticed to the back. Patient has a centralized erythematous area approximately 4 cm with central induration and carbuncle heads. Course Vital Signs: Vital signs: Vital Signs Temperature 98.2 F 04/19/22 18:39 Pulse Rate 88 04/19/22 18:39 Respiratory Rate 15 04/19/22 18:39 Blood Pressure 94/65 04/19/22 18:39 Pulse Oximetry 97 04/19/22 18:39 Oxygen Delivery Me thod 04/19/22 18:39 MDM - Wound/Laceration Medical Decision Making Patient comes in for a tender area to the mid back. On exam there is 3 to 4 cm area of redness with a centralized white papules with surrounding induration. No fluctuance or fluid is noted. Differential diagnosis includes abscess, carbuncle, cellulitis. Believe the patient has a carbuncle. We will place him on mupirocin ointment and Augmentin. Recommend warm moist packs to the area. Follow-up in 1 week with primary care or return to the ER for worsening symptoms. Discharge Plan Discharge Patient Disposition: Home Clinical Impression: Carbuncle and furuncle of trunk Condition: Stable Prescriptions: New amoxicillin-pot clavulanate 875-125 mg tablet 1 tab PO BID Qty: 14 0RF mupirocin 2 % ointment 1 applic topical BID Qty: 22 0RF No Action (DME) Diabetic Shoes See Rx Instructions .ROUTE .MEDSUPPLY Qty: 1 0RF Rx Instructions: As directed sodium chloride 1 gram tablet 1,000 mg PO DAILY 90 Days Qty: 90 1RF hydrocodone-acetaminophen 5-325 mg tablet 1 tab PO Q4H MDD 3 tabs per day PRN (Reason: pain) 30 Days Qty: 90 0RF Eliquis 5 mg tablet 5 mg PO BID Qty: 60 5RF Rx Instructions: for anticoagulation Adult Aspirin Regimen 81 mg tablet,delayed release (DR/EC) 81 mg PO DAILY Qty: 30 0RF atorvastatin 40 mg tablet 40 mg PO BEDTIME Qty: 90 3RF ferrous gluconate 324 mg (37.5 mg iron) tablet 324 mg PO BIDWM Qty: 60 0RF furosemide 40 mg tablet 40 mg PO DAILY@0800 Qty: 30 5RF gabapentin 300 mg capsule 300 mg PO TID 90 Days Qty: 270 1RF isosorbide mononitrate 30 mg tablet extended release 24 hr 30 mg PO DAILY 90 Days Qty: 90 1RF lisinopril 20 mg tablet 20 mg PO DAILY Qty: 90 1RF loratadine [Allergy Relief (loratadine)] 10 mg tablet 10 mg PO DAILY 90 Days Qty: 90 1RF metoprolol tartrate 50 mg tablet 50 mg PO BID Qty: 180 1RF polyethylene glycol 3350 [Miralax] 17 gram/dose powder 17 g PO BID Qty: 510 5RF tamsulosin [Flomax] 0.4 mg capsule 0.4 mg PO DAILY 90 Days Qty: 90 1RF tizanidine 4 mg tablet 4 mg PO TID PRN (Reason: muscle spasticity) 90 Days Qty: 270 1RF Discharge Orders: Discharge ED (Routine); Ordered 04/19/22 Ordered By: Stuart Medrano Referrals: Parker Ashby DO [Primary Care Provider] - Discharge Diet: Usual diet Discharge Activity: Increase activity as tolerated Patient Instructions: Furunculosis and Carbunculosis (ED) Activity Restrictions/Additional Instructions: Apply antibiotic ointment to the area and cover with a dressing once a day. Take oral antibiotic 1 tablet twice a day for the next 7 days. Drink plenty of water with medication. Follow-up with primary care in 1 week for recheck. Return to the emergency department for high fever, worsening pain and discomfort, or new concerns. Coding Level of Care Code ED Motor Route Carrier for Debra Monroe
== END 2022-04-19 19:38 | disposition home or self-care (01) ==
PROVIDERS: Emergency Provider Nurse Practitioner Family; PCP Family Medicine
DX: L02.239 Carbuncle of trunk, unspecified (principal); L02.229 Furuncle of trunk, unspecified; Z79.01 Long term (current) use of anticoagulants; Z79.82 Long term (current) use of aspirin; I25.10 Atherosclerotic heart disease of native coronary artery without angina pectoris; E78.5 Hyperlipidemia, unspecified; I10 Essential (primary) hypertension; F17.210 Nicotine dependence, cigarettes, uncomplicated
CPT/HCPCS: 99283

== ENCOUNTER → 2022-06-23 08:45 | Outpatient (BNVA) | payer MEDICARE, MEDICAID, SELFPAY | PROVIDERS: PCP Family Medicine; Visit Provider Nurse Practitioner | DX: D64.9 Anemia, unspecified (principal); I10 Essential (primary) hypertension; K21.9 Gastro-esophageal reflux disease without esophagitis; E61.1 Iron deficiency; E55.9 Vitamin D deficiency, unspecified; S91.309A Unspecified open wound, unspecified foot, initial encounter; X58.XXXA Exposure to other specified factors, initial encounter | CPT/HCPCS: 73630; 80053; 80061; 82306; 82607; 83550; 84443; 85025 ==

== ENCOUNTER 2022-07-03 18:33 | Emergency (ER) | payer MEDICARE, MEDICAID, SELFPAY ==
[2022-07-03 18:48] VITALS: BP 109/57; PULSE 77; RESP 15; TEMP 37.1; O2SAT 95; BMI 24.6
--- NOTE | 2022-07-03 19:35 | XRR_ITS ---
PROCEDURE INFORMATION: Exam: XR Left Foot Exam date and time: 07/03/2022 7:47 PM Age: 76 years old Clinical indication: Pain; Foot; Left; Additional info: Great toe-wound and infected TECHNIQUE: Imaging protocol: Radiologic exam of the left foot. Views: 3 or more views. COMPARISON: No relevant prior studies available. FINDINGS: Bones/joints: Soft tissue ulceration along the plantar aspect of the 1st metatarsophalangeal joint. Degenerative changes of the intertarsal and interphalangeal joints. No fracture or bone destruction identified. Soft tissues: Soft tissue swelling of the foot and great toe. XR/XR foot LT min 3V* [id number] IMPRESSION: 1. No convincing evidence for osteomyelitis. 2. Soft tissue ulceration over the plantar aspect of the 1st MTP joint.
--- NOTE | 2022-07-03 19:37 | W.ED.SKABFB ---
HPI - Skin/Abscess/Foreign Bdy General: Chief complaint: Skin/Abscess/Foreign Body Stated complaint: L foot injury/ulcer Time Seen by Provider: 07/03/22 19:08 History of Present Illness: Patient is a 76-year-old male comes to the ED with left foot ulcer. Symptoms started approximately 3 days ago. Denies any injury or trauma to the left foot to cause symptoms. Patient does have a history of some chronic foot ulcers that is managed by his primary care doctor. This is a new wound that started couple days ago. He first developed redness and swelling of his right great toe. Within the last 24 hours a wound opened up on the bottom of his toe. It has been draining some blood and pus since it opened up. Pain is minimal when at rest but if he tries to put any weight on his left foot pain increases significantly. His whole great toe is swollen and red and its moved down into the midfoot region. Associated symptoms: Deny chills, fever(s), nausea or vomiting Review of Systems Const: Denies: fever(s), chills or fatigue Eyes: Denies: change in vision or eye discomfort ENMT: Denies: throat pain, odynophagia, nasal discharge or nasal congestion Card: Denies: chest pain, palpitations, edema, swelling of feet/ankles, dyspnea on exertion or orthopnea Resp: Denies: dyspnea, productive cough or non-productive cough GI: Denies: abdominal pain, nausea, vomiting, diarrhea, constipation or hematochezia : Denies: flank pain, difficulty urinating, dysuria or hematuria Musc: Denies: neck pain, back pain or extremity swelling Skin/Breast: Reports: new lesions (Infected ulcer type wound on left great toe); Denies: rash Neuro: Denies: headache(s), numbness in extremities or weakness in extremities PFSH ED PFSH: Medical History CAD (coronary artery disease) Chronic ulcer of left foot with fat layer exposed DJD (degenerative joint disease) Dyslipidemia Essential hypertension EtOH dependence GERD (gastroesophageal reflux disease) Hammer toe 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 Left leg DVT Neuropathy Osteoarthritis of left knee Polyarticular arthritis Polymyalgia Psoriasis Family History Father Dementia Mother Cancer BRAIN TUMOR Social History Smoking and tobacco status: current every day smoker Second hand smoke exposure: Yes Smoking risk assessment/counseling performed?: No Alcohol intake: unknown Desire information about alcohol rehabilitation?: No Counseling given: No Desire information about substance/drug rehabilitation?: No Counseling given: No Adopted: No Caregiver/support person: No Lives independently: Yes Household members: none Housing: House Marital status: / Number of children: 0 service: Yes branch: [employer] Current occupational status: retired Pets and animals: Yes Current gender identity: Male Physical Exam Const: COMMON NORMALS: patient oriented x3 and alert GENERAL APPEARANCE: cooperative and comfortable HENMT: COMMON NORMALS: normocephalic HEAD & SCALP: normocephalic MOUTH: Normal oral and palatal mucosa present THROAT: posterior oropharynx normal and uvula midline Neck/C-Spine: COMMON NORMALS: supple GENERAL: Yes normal visual inspection Resp: COMMON NORMALS: normal respiratory effort, No retractions, No use of accessory muscles and clear to auscultation bilaterally AUSCULTATION: clear to auscultation bilaterally Cardio: COMMON NORMALS: regular rate, regular rhythm, S1 normal heart sound present, S2 normal heart sound present, No gallops present (Cardio), No clicks present (Cardio), No murmurs present (Cardio) and Peripheral pulses 2+ throughout RATE: regular rate RHYTHM: regular rhythm HEART SOUNDS: S1 normal heart sound present and S2 normal heart sound present PERIPHERAL PULSES: Peripheral pulses 2+ throughout GI: COMMON NORMALS: Normal to inspection, nondistended, normoactive bowel sounds present, Soft to palpation, non-tender and no masses PALPATION: Yes Soft to palpation : COMMON NORMALS: Yes no CVA tenderness BLADDER/KIDNEY EXAM: Yes no CVA tenderness Back/Pelvis: COMMON NORMALS: no CVA tenderness Extremity: NARRATIVE EXTREMITY EXAM: Left foot?great toe?erythema, warmth and swelling noted. Small open wound on the bottom of great toe. No active purulent drainage seen. Patient has some mild erythema and swelling extending into midfoot. Neuro: COMMON NORMALS: patient oriented x3 SENSORIUM/ORIENTATION: Yes alert GAIT: Yes Normal gait present Skin: GENERAL SKIN EXAM: dry skin Course Vital Signs: Vital signs: Vital Signs Temperature 98.7 F 07/03/22 18:48 Pulse Rate 65 07/03/22 20:46 Respiratory Rate 18 07/03/22 20:46 Blood Pressure 96/60 07/03/22 20:46 Pulse Oximetry 96 07/03/22 20:46 Oxygen Delivery Me thod 07/03/22 20:46 MDM - Skin/Abscess/Foreign Bdy Medicial Decision Making Patient is a 76-year-old male comes to the ED with left foot ulcer. Symptoms started approximately 3 days ago. Denies any injury or trauma to the left foot to cause symptoms. Patient does have a history of some chronic foot ulcers that is managed by his primary care doctor. This is a new wound that started couple days ago. He first developed redness and swelling of his right great toe. Within the last 24 hours a wound opened up on the bottom of his toe. It has been draining some blood and pus since it opened up. Pain is minimal when at rest but if he tries to put any weight on his left foot pain increases significantly. His whole great toe is swollen and red and its moved down into the midfoot region. Vital stable patient is afebrile. Left foot?great toe?erythema, warmth and swelling noted. Small open wound on the bottom of great toe. No active purulent drainage seen. Patient has some mild erythema and swelling extending into midfoot. White blood cell count 6.5 and the rest of CBC and CMP are unremarkable. CRP 77.3. X-ray of left foot showed no convincing evidence for osteomyelitis. Patient was given IV antibiotics here in the ED. I placed an order with case management for patient to be referred to podiatry for follow-up on toe wound and infection. Patient was diagnosed with open wound of left great toe with cellulitis. He was stable for discharge home on Bactrim DS. Strict return to ED precautions given. Patient understood and agreed with plan. Lab Data I reviewed the patient's lab results. 07/03/22 19:45 07/03/22 19:45 Radiology Impressions Foot X-Ray 07/03/22 19:35 IMPRESSION: 1. No convincing evidence for osteomyelitis. 2. Soft tissue ulceration over the plantar aspect of the 1st MTP joint. Laboratory Results WBC 6.5 10^3/uL (4.0-10.0) 07/03/22 19:45 RBC 3.51 10^6/uL (4.1-5.3) L 07/03/22 19:45 Hgb 10.4 g/dL (11.7-16.6) L 07/03/22 19:45 Hct 31.8 % (42.0-52.0) L 07/03/22 19:45 MCV 90.6 fl (80-94) 07/03/22 19:45 MCH 29.6 pg (28.0-34.0) 07/03/22 19:45 MCHC 32.7 g/dL (30.0-36.0) 07/03/22 19:45 RDW 14.6 % (12.1-15.1) 07/03/22 19:45 Plt Count 263 10^3/cmm (130-400) 07/03/22 19:45 MPV 10.3 fL (7.4-10.4) 07/03/22 19:45 Neut % (Auto) 70.2 % 07/03/22 19:45 Lymph % (Auto) 17.7 % 07/03/22 19:45 Cottle % (Auto) 8.6 % 07/03/22 19:45 Eos % (Auto) 2.6 % 07/03/22 19:45 Baso % (Auto) 0.6 % 07/03/22 19:45 Neut # (Auto) 4.54 10^3/uL (1.8-7.7) 07/03/22 19:45 Lymph # (Auto) 1.2 10^3/uL (0.8-4.8) 07/03/22 19:45 Cottle # (Auto) 0.6 10^3/uL (0.2-0.9) 07/03/22 19:45 Eos # (Auto) 0.2 10^3/uL (0.0-0.8) 07/03/22 19:45 Baso # (Auto) 0.0 10^3/uL (0.0-0.1) 07/03/22 19:45 Nucleated RBC % (auto) 0 % 07/03/22 19:45 Nucleated RBCs # 0.0 /100WBC 07/03/22 19:45 Sodium 131 mmol/L (136-145) L 07/03/22 19:45 Potassium 4.0 mmol/L (3.5-5.1) 07/03/22 19:45 Chloride 98 mmol/L (98-107) 07/03/22 19:45 Carbon Dioxide 20 mmol/L (22-29) L 07/03/22 19:45 Anion Gap 17.0 (5-19) 07/03/22 19:45 BUN 20 mg/dL (8-23) 07/03/22 19:45 Creatinine 1.1 mg/dL (0.7-1.2) 07/03/22 19:45 GFR Calculation Not Reportable 07/03/22 19:45 Glucose 147 mg/dL (65-115) H 07/03/22 19:45 Calculated Osmolality 277 mOsm/kg (285-295) L 07/03/22 19:45 Lactic Acid 1.5 mmol/L (0.5-2.2) 07/03/22 19:45 Calcium 8.3 mg/dL (8.5-10.5) L 07/03/22 19:45 Total Bilirubin 0.2 mg/dL (0.15-1.2) 07/03/22 19:45 AST 18 U/L (0-40) 07/03/22 19:45 ALT 13 U/L (0-41) 07/03/22 19:45 Alkaline Phosphatase 56 U/L (40-130) 07/03/22 19:45 C-Reactive Protein 77.3 mg/L (0.0-4.9) H 07/03/22 19:45 Total Protein 6.2 g/dL (6.6-8.7) L 07/03/22 19:45 Albumin 2.6 g/dL (3.5-5.2) L 07/03/22 19:45 Globulin 3.6 g/dL (1.3-4.6) 07/03/22 19:45 Discharge Plan Discharge Patient Disposition: Home Clinical Impression: Wound, open, toe Qualifiers: Encounter type: initial encounter Qualified Code(s): S91.109A - Unspecified open wound of unspecified toe(s) without damage to nail, initial encounter Cellulitis Qualifiers: Site of cellulitis: extremity Site of cellulitis of extremity: toe Laterality: left Qualified Code(s): L03.032 - Cellulitis of left toe Condition: Stable Prescriptions: New sulfamethoxazole-trimethoprim 800-160 mg tablet 1 tab PO BID 10 Days Qty: 20 0RF No Action (DME) Diabetic Shoes See Rx Instructions .ROUTE .MEDSUPPLY Qty: 1 0RF Rx Instructions: As directed SujathaHojada (honey) 100 % paste 1 applic topical BID Qty: 103 2RF Eliquis 5 mg tablet 5 mg PO BID Qty: 60 5RF Rx Instructions: for anticoagulation atorvastatin 40 mg tablet 40 mg PO BEDTIME Qty: 90 3RF furosemide 40 mg tablet 40 mg PO DAILY@0800 Qty: 30 5RF gabapentin 300 mg capsule 300 mg PO TID 90 Days Qty: 270 1RF isosorbide mononitrate 30 mg tablet extended release 24 hr 30 mg PO DAILY 90 Days Qty: 90 1RF lisinopril 20 mg tablet 20 mg PO DAILY Qty: 90 1RF Hold Instructions: Doctor's Order loratadine [Allergy Relief (loratadine)] 10 mg tablet 10 mg PO DAILY 90 Days Qty: 90 1RF metoprolol tartrate 50 mg tablet 50 mg PO BID Qty: 180 1RF polyethylene glycol 3350 [Miralax] 17 gram/dose powder 17 g PO BID Qty: 510 5RF tamsulosin [Flomax] 0.4 mg capsule 0.4 mg PO DAILY 90 Days Qty: 90 1RF tizanidine 4 mg tablet 4 mg PO TID PRN (Reason: muscle spasticity) 90 Days Qty: 270 1RF Adult Aspirin Regimen 81 mg tablet,delayed release (DR/EC) 81 mg PO DAILY Qty: 90 3RF ferrous gluconate 324 mg (37.5 mg iron) tablet 324 mg PO BIDWM Qty: 60 3RF sodium chloride 1,000 mg tablet,soluble See Rx Instructions .ROUTE .COMPLEX Qty: 90 1RF Dose Instruction: TAKE ONE TABLET BY MOUTH EVERY DAY Rx Instructions: TAKE ONE TABLET BY MOUTH EVERY DAY hydrocodone-acetaminophen 5-325 mg tablet 1 tab PO Q4H MDD 3 tabs per day PRN (Reason: pain) 30 Days Qty: 90 0RF mupirocin 2 % ointment 1 applic topical BID Qty: 22 0RF Discharge Orders: Discharge ED (Routine); Ordered 07/03/22 Ordered By: Gildardo Quiñonez Referrals: Parker Ashby, [Primary Care Provider] - Discharge Diet: Regular Discharge Activity: Increase activity as tolerated Patient Instructions: Cellulitis (ED), Acute Wound Care (ED) Activity Restrictions/Additional Instructions: Follow-up with medical provider as directed. Case management should be contacted in the next several days to set up an appointment with marketing ambassador for follow-up on toe wound and infection. Take medications as prescribed. Return to the ER or your medical provider if condition worsens. Please read and understand discharge instructions. Thank you for choosing [facility] for your healthcare needs today. Please realize this is an emergency room and that we are providing you with a medical screening exam and this may not be complete and all inclusive of all the testing and or work up that you may need to determine your ailment or severity of your illness. It is very important that you follow up as instructed or that you return to the Emergency Department should you have concerns or if your condition changes or worsens in any way. Coding Level of Care Code ED Bingo Manager for Debra Monroe
[2022-07-03 19:52] LABS: Basophils % 0.6 %; Eosinophils # 0.2 10^3/uL (0.0-0.8); Eosinophils % 2.6 %; Hematocrit 31.8 % (42.0-52.0); Hemoglobin 10.4 g/dL (11.7-16.6); Lymphocytes # 1.2 10^3/uL (0.8-4.8); Lymphocytes % 17.7 %; Mean Corpuscular HGB Conc 32.7 g/dL (30.0-36.0); Mean Corpuscular Hemoglobin 29.6 pg (28.0-34.0); Mean Corpuscular Volume 90.6 fl (80-94); Mean Platelet Volume 10.3 fL (7.4-10.4); Monocytes # 0.6 10^3/uL (0.2-0.9); Monocytes % 8.6 %; Neutrophils # 4.54 10^3/uL (1.8-7.7); Neutrophils % 70.2 %; Nucleated Red Blood Cells % 0 %; Platelet Count 263 10^3/cmm (130-400); Red Blood Count 3.51 10^6/uL (4.1-5.3); Red Cell Distribution Width 14.6 % (12.1-15.1); White Blood Count 6.5 10^3/uL (4.0-10.0)
[2022-07-03 20:10] LABS: Lactic Sepsis W/Reflex 1.5 mmol/L (0.5-2.2)
[2022-07-03 20:11] LABS: Alanine Aminotransferase 13 U/L (0-41); Albumin Level 2.6 g/dL (3.5-5.2); Alkaline Phosphatase 56 U/L (40-130); Aspartate Amino Transferase 18 U/L (0-40); Blood Urea Nitrogen 20 mg/dL (8-23); C Reactive Protein 77.3 mg/L (0.0-4.9); Calcium 8.3 mg/dL (8.5-10.5); Carbon Dioxide 20 mmol/L (22-29); Chloride 98 mmol/L (98-107); Globulin 3.6 g/dL (1.3-4.6); Glucose 147 mg/dL (65-115); Osmolality Calculated 277 mOsm/kg (285-295); Sodium 131 mmol/L (136-145); Total Bilirubin 0.2 mg/dL (0.15-1.2); Total Protein 6.2 g/dL (6.6-8.7)
[2022-07-03 20:46] VITALS: BP 96/60; PULSE 65; RESP 18; O2SAT 96
[2022-07-03] MEDS: vancomycin 1,500 MG/300 ML PIGGYBACK 200 MG IV (21:03)
[2022-07-03] MEDS: sodium chloride 0.9% 250 ML IV (21:04)
--- NOTE | 2022-07-04 09:59 | DCPLANNER ---
Addendum entered by Kyara Delgado 07/07/22 08:16: Patient had a follow up appointment scheduled with ortho - patient did attend appointment. Original Note: intervention manager had message to schedule a follow up appointment for patient with podiatry. intervention manager sent patients information to the front office staff at podiatry. Patients information will be printed and reviewed. Clinic will call patient with appointment information.
== END 2022-07-03 22:57 | disposition home or self-care (01) ==
PROVIDERS: Emergency Provider Physician Assistant; PCP Family Medicine
DX: L03.032 Cellulitis of left toe (principal); S91.109A Unspecified open wound of unspecified toe(s) without damage to nail, initial encounter; Z79.01 Long term (current) use of anticoagulants; Z79.82 Long term (current) use of aspirin; F17.210 Nicotine dependence, cigarettes, uncomplicated; I25.10 Atherosclerotic heart disease of native coronary artery without angina pectoris; E78.5 Hyperlipidemia, unspecified; I10 Essential (primary) hypertension; X58.XXXA Exposure to other specified factors, initial encounter
CPT/HCPCS: 36415; 73630; 80053; 83605; 85025; 86140; 87040; 96365; 96366; 99284; J3370; J7050

== ENCOUNTER → 2022-07-04 15:39 | Outpatient (BNVA) | payer MEDICARE, MEDICAID, SELFPAY | PROVIDERS: PCP Family Medicine; Visit Provider Podiatrist Foot & Ankle Surgery | DX: L97.524 Non-pressure chronic ulcer of other part of left foot with necrosis of bone (principal); L03.032 Cellulitis of left toe; G62.9 Polyneuropathy, unspecified | CPT/HCPCS: 99214 ==

== ENCOUNTER 2022-07-04 17:04 | Inpatient (IN) | payer MEDICARE, MEDICAID, SELFPAY ==
[2022-07-04 17:28] VITALS: BMI 23.3
--- NOTE | 2022-07-04 17:34 | USR_ITS ---
PROCEDURE INFORMATION: Exam: US Duplex Lower Extremity Arteries Exam date and time: 07/04/2022 5:52 PM Age: 76 years old Clinical indication: Condition or disease; Other: Pad TECHNIQUE: Imaging protocol: Real-time ultrasound scan of the arteries of the bilateral lower extremities with 2-D betancur scale, color Doppler flow and spectral waveform analysis. Images documented and saved. COMPARISON: [id number] 11/07/2021 10:58 AM FINDINGS: Right common femoral and external iliac artery: No occlusion or significant stenosis. Normal waveform. Right superficial femoral artery: No occlusion or significant stenosis. Normal triphasic waveforms in the proximal and mid artery. Monophasic waveform in the distal artery. Right popliteal artery: No occlusion or significant stenosis. Monophasic waveform. Right calf/foot arteries: Monophasic waveforms. Mildly elevated peak systolic velocity in the posterior tibial artery measuring 173 cm/s. Dorsalis pedis artery is patent. Left common femoral artery: No occlusion or significant stenosis. Normal waveform. Left superficial femoral artery: Triphasic waveform with normal velocity in the proximal artery. Monophasic waveforms in the mid and distal artery with mildly elevated peak systolic velocity distally measuring 178 cm/s. Left popliteal artery: No occlusion or significant stenosis. Monophasic waveform. Left calf/foot arteries: No occlusion or significant stenosis in the visualized arteries. Monophasic waveforms. Dorsalis pedis artery [place] patent. US/[id number] IMPRESSION: 1. No hemodynamically significant stenosis identified. 2. Monophasic waveforms in the calf arteries and distal superficial femoral arteries is most likely related to hyperemia.
[2022-07-04 17:40] VITALS: BP 145/82; PULSE 84; RESP 17; TEMP 36.8; O2SAT 99
--- NOTE | 2022-07-04 17:40 | ECG_ITS ---
[facility] Test Date: 2022-07-04 Pat Name: Rigo Santiago Department: Room: 279 Gender: Male Spiral Tube Winder: : 1945 Requested By: Parag Gutierrez Order Number: [id number] Sierra MD: Hunter Mendoza M.D. Measurements Intervals Elizabeth Rate: 74 P: 29 OH: 152 QRS: 73 QRSD: 91 T: 69 QT: 353 QTc: 392 Interpretive Statements SINUS RHYTHM Compared to ECG 12/23/2021 14:24:39 Sinus arrhythmia no longer present T-wave abnormality no longer present Electronically Signed On 07-05-2022 15:03:39 PRINTER SLOTTER HELPER by Hunter Mendoza M.D. [email or web address]
--- NOTE | 2022-07-04 17:48 | P.HP_ITS ---
Providers/Chief Complaint Admitting Physician: Parag Gutierrez MD Primary Care Provider: Parker Ashby DO Chief Complaint: Acute osteomyelitis History of Present Illness Rigo Santiago is a 76 year old male with past medical history of CAD, positive stress test, congestive heart failure with known EF of 40 to 45%, moderate aortic stenosis and mild to moderate aortic regurgitation, anemia secondary to GI bleed from gastritis was sent in as a direct admit from podiatry clinic where he presented today for open left wound which started draining along with redness around the skin for the last 3 days which prior to that was red in color for last 1 week. Patient cannot explain any pain in the leg but he states he is always had decreased sensation in the legs. Apparently patient was in the ER on 07/03 when he was treated for cellulitis with Bactrim and discharged back home. His blood work done yesterday in the ER showed elevated CRP. Patient has been admitted directly from podiatry clinic with concerns for osteomyelitis follow-up toe amputation planned on 07/05. Review of Systems General: Reports: 10 or more systems reviewed and unremarkable except in HPI and below Const: Denies: fever(s), chills, body aches, change in appetite, change in weight, malaise, night sweats, diaphoresis, change in sleep pattern, daytime sleepiness or snoring Eyes: Denies: change in vision, blurry vision, photophobia, eye discomfort or eye discharge ENMT: Denies: throat pain, enlarged tonsils, hoarseness, mouth pain, oral sores, dry mouth, tinnitus, nasal congestion or post nasal drip Card: Denies: chest pain, palpitations, irregular heart rhythm, edema, swelling of feet/ankles, lightheadedness, syncope, pre-syncope, dyspnea on exertion, orthopnea, leg pain with exertion or acrocyanosis Resp: Denies: dyspnea, productive cough, non-productive cough, wheezing, stridor, pain on inspiration, change in phlegm color, hemoptysis or chest congestion GI: Denies: abdominal pain, nausea, vomiting, hematemesis, coffee ground e mesis, dysphagia, heartburn, diarrhea, constipation, bloating, GI cramping, change in bowel habits, pain on defecation, hematochezia or melena : Denies: flank pain, difficulty urinating, dysuria, urinary frequency, urinary urgency, urinary hesitancy, urinary dribbling, difficulty starting urination, change in urine stream, nocturia or hematuria Musc: Denies: neck pain, back pain, extremity pain, joint pain, joint swelling, joint redness, joint stiffness or limited range of motion Neuro: Denies: headache(s), numbness in extremities, weakness in extremities, sensory changes, lack of coordination, difficulty walking, frequent falls, dizziness, vertigo, confusion, Slurred speech present, difficulty communicating thoughts or seizure-like activity Psych: Denies: anxiety, depression, mood swings, panic attacks, hopelessness or irritability Endo: Denies: polyuria, polydipsia, tired all the time, cold intolerance, excessive sweating, flushing or heat intolerance Dylan/Lymph: Denies: easy bruising or easy bleeding All/Imm: Denies: tongue swelling, facial swelling or acute wheezing Medications/Allergies Home Medications Medication Instructions Recorded Confirmed Last Taken Type Diabetic Shoes #1 ea 12/11/19 07/05/22 Unknown Rx apixaban 5 mg tablet (Eliquis) 5 mg PO BID #60 tabs 04/13/22 07/05/22 Unknown Rx atorvastatin 40 mg tablet 40 mg PO BEDTIME #90 tabs 04/13/22 07/05/22 Unknown Rx furosemide 40 mg tablet 40 mg PO DAILY@0800 #30 tabs 04/13/22 07/05/22 Unknown Rx gabapentin 300 mg capsule 300 mg PO TID 90 days #270 caps 04/13/22 07/05/22 Unknown Rx isosorbide mononitrate 30 mg 30 mg PO DAILY 90 days #90 tabs 04/13/22 07/05/22 Unknown Rx tablet,extended release 24 hr lisinopril 20 mg tablet 20 mg PO DAILY #90 tabs 04/13/22 07/05/22 Unknown Rx loratadine 10 mg tablet (Allergy 10 mg PO DAILY 90 days #90 tabs 04/13/22 07/05/22 Unknown Rx Relief (loratadine)) metoprolol tartrate 50 mg tablet 50 mg PO BID #180 tabs 04/13/22 07/05/22 Unknown Rx polyethylene glycol 3350 17 17 g PO BID #510 grams 04/13/22 07/05/22 Unknown Rx gram/dose oral powder (Miralax) tamsulosin 0.4 mg capsule (Flomax) 0.4 mg PO DAILY 90 days #90 caps 04/13/22 07/05/22 Unknown Rx tizanidine 4 mg tablet 4 mg PO TID PRN muscle spasticity 04/13/22 07/05/22 Unknown Rx 90 days #270 tabs mupirocin 2 % topical ointment 1 applic topical BID #22 grams 04/19/22 07/05/22 Unknown Rx aspirin 81 mg tablet,delayed 81 mg PO DAILY #90 tabs 05/09/22 07/05/22 Unknown Rx release (Adult Aspirin Regimen) ferrous gluconate 324 mg (37.5 mg 324 mg PO BIDWM #60 tabs 05/09/22 07/05/22 Unknown Rx iron) tablet sodium chloride 1,000 mg soluble See Rx Instructions .Route 05/28/22 07/05/22 Unknown Rx tablet .COMPLEX #90 tabs hydrocodone 5 mg-acetaminophen 325 1 tab PO Q4H PRN pain 1 month #90 06/20/22 07/05/22 Unknown Rx mg tablet tabs honey 100 % topical paste 1 applic topical BID #103 mL 06/23/22 07/05/22 Unknown Rx (MediHoney (honey)) sulfamethoxazole 800 1 tab PO BID 10 days #20 tabs 07/03/22 07/05/22 Unknown Rx mg-trimethoprim 160 mg tablet Allergies Allergy/AdvReac Type Severity Reaction Status Date / Time magnesium oxide Allergy Unknown Verified 07/04/22 16:19 quinidine Allergy Unknown Verified 07/04/22 16:19 thioridazine [From Mellaril] Allergy Unknown Verified 07/04/22 16:19 PFSH Acute PFSH: Medical History (Updated 07/04/22 @ 23:06 by Parag Gutierrez MD) CAD (coronary artery disease) CAD (coronary artery disease) Chronic ulcer of left foot with fat layer exposed DJD (degenerative joint disease) Dyslipidemia Essential hypertension EtOH dependence GERD (gastroesophageal reflux disease) Hammer toe 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 Left leg DVT Neuropathy Osteoarthritis of left knee Polyarticular arthritis Polymyalgia Positive cardiac stress test Psoriasis Family History Father Dementia Mother Cancer BRAIN TUMOR Social History Smoking and tobacco status: current every day smoker Second hand smoke exposure: Yes Smoking risk assessment/counseling performed?: No Alcohol intake: unknown Desire information about alcohol rehabilitation?: No Counseling given: No Desire information about substance/drug rehabilitation?: No Counseling given: No Adopted: No Caregiver/support person: No Lives independently: Yes Household members: none Housing: House Marital status: / Number of children: 0 service: Yes branch: [employer] Current occupational status: retired Pets and animals: Yes Current gender identity: Male Physical Exam Narrative: General: No acute distress, AO x3 HEENT: PERRLA, pupils bilaterally equal and reactive Chest: Normal vesicular breath sounds, no added sounds, equal good air entry bilaterally CVS: S1-S2 regular, no murmurs, no tachycardia, no gallops, no rubs Abdomen: Soft, nontender, no organomegaly, bowel sounds present Neuro: No focal deficits, no facial deformity, AO x3, power 5/5 in all limbs Extremities: Surgically bandaged from the podiatry office. Did not open up the bandage as patient To go to the OR within next 24 hours. 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 Continue with aspirin and statin. Check A1c. (5) Congestive heart failure (CHF): Patient fairly well compensated for now. Last echocardiogram done in November 2021 shows an EF of 40%, grade 1 diastolic dysfunction, global LV hypokinesia, severe pulmonary hypertension with RVSP of 30 mmHg, moderate aortic stenosis with mild to moderate aortic regurgitation. Cardiac stress test in November 2021 shows moderate to severe decreased uptake in inferior, inferior lateral, inferior septal and apex with significant reversibility suggestive of myocardial ischemia in RCA with some involvement of LCx. Continue home dose of Imdur, aspirin, statin, metoprolol. Given plan for or tomorrow we will hold off on Lasix today. Monitor for fluid overload. Qualifiers: Heart failure chronicity: acute on chronic Heart failure type: combined systolic and diastolic Qualified Code(s): I50.43 - Acute on chronic combined systolic (congestive) and diastolic (congestive) heart failure (6) Positive cardiac stress test: (7) Aortic valve stenosis, moderate: (8) Moderate aortic valve regurgitation: (9) Severe pulmonary hypertension: (10) Peripheral neuropathy: Plan Appreciate labs done in ER on 07/03. Chronic left toe open wound/osteomyelitis/cellulitis: Sent in from podiatry clinic. 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 Check stat CBC, CMP, lactate, urinalysis, blood culture, MRSA swab. For now start patient on vancomycin and Zosyn empirically. Check arterial duplex bilateral lower limb to rule out PAD. Continue other chronic medications including salt tablet, gabapentin, iron supplementation, home dose of hydrocodone. Full code. Cardiac diet, n.p.o. after midnight. Protonix OPD prophylaxis. SCDs for DVT prophylaxis. Hold off on medical prophylaxis. 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
[2022-07-04 18:18] LABS: Basophils % 0.7 %; Eosinophils # 0.2 10^3/uL (0.0-0.8); Eosinophils % 2.9 %; Hematocrit 33.9 % (42.0-52.0); Hemoglobin 11.1 g/dL (11.7-16.6); Lymphocytes # 1.2 10^3/uL (0.8-4.8); Lymphocytes % 21.2 %; Mean Corpuscular HGB Conc 32.7 g/dL (30.0-36.0); Mean Corpuscular Hemoglobin 29.6 pg (28.0-34.0); Mean Corpuscular Volume 90.4 fl (80-94); Mean Platelet Volume 10.3 fL (7.4-10.4); Monocytes # 0.4 10^3/uL (0.2-0.9); Neutrophils # 3.66 10^3/uL (1.8-7.7); Neutrophils % 66.8 %; Nucleated Red Blood Cells % 0 %; Platelet Count 264 10^3/cmm (130-400); Red Blood Count 3.75 10^6/uL (4.1-5.3); Red Cell Distribution Width 14.6 % (12.1-15.1); White Blood Count 5.5 10^3/uL (4.0-10.0)
[2022-07-04] MEDS: HYDROcodone-acetaminophen 5-325 mg Tablet 1 TAB PO (18:25)
[2022-07-04] MEDS: ferrous gluconate 324 mg Tablet PO (18:25)
[2022-07-04 18:35] LABS: Alanine Aminotransferase 14 U/L (0-41); Alkaline Phosphatase 73 U/L (40-130); Anion Gap 16.8 (5-19); Aspartate Amino Transferase 18 U/L (0-40); Blood Urea Nitrogen 17 mg/dL (8-23); Calcium 8.6 mg/dL (8.5-10.5); Carbon Dioxide 25 mmol/L (22-29); Chloride 102 mmol/L (98-107); Globulin 3.9 g/dL (1.3-4.6); Glucose 89 mg/dL (65-115); Osmolality Calculated 291 mOsm/kg (285-295); Potassium 3.8 mmol/L (3.5-5.1); Sodium 140 mmol/L (136-145); Total Bilirubin 0.2 mg/dL (0.15-1.2); Total Protein 6.9 g/dL (6.6-8.7)
[2022-07-04 19:17] LABS: Add Urine Microscopic? NO; Charge for UA Resulting for Rev
[2022-07-04 19:21] LABS: Bilirubin Urine Neg (Negative); Blood Urine Neg (Negative); Glucose Urine UA Norm (Normal); Ketones Urine Negative (Negative); Leukocyte Esterase Urine Negative (Negative); Nitrate Urine Negative (Negative); Protein Urine Neg (Negative); Urine Appearance Clear (CLEAR); Urine Color Yellow (Yellow); Urobilinogen Urine Norm (Negative); pH Urine 6.5 (5-7)
[2022-07-04 20:00] VITALS: BP 109/64; PULSE 83; RESP 17; TEMP 36.8; O2SAT 97
[2022-07-04] MEDS: vancomycin 1,000 MG in sodium chloride 0.9% 250 ML 250 MG IV (20:33)
[2022-07-04] MEDS: atorvastatin 40 mg Tablet PO (20:34)
[2022-07-04] MEDS: gabapentin 300 mg Capsule PO (20:34)
[2022-07-04] MEDS: metoprolol tartrate 50 mg Tablet PO (20:34)
[2022-07-04 21:07] LABS: Procalcitonin 0.12 ng/mL (0-0.5)
[2022-07-04] MEDS: piperacillin-tazobactam 3.375 GM in sodium chloride 0.9% (plus) 50 ML IV (21:42)
[2022-07-04 22:00] VITALS: PULSE 67
[2022-07-04 22:08] VITALS: PULSE 71; RESP 14; O2SAT 97
[2022-07-04 22:09] VITALS: O2SAT 97
[2022-07-04 22:20] LABS: Lactic Sepsis W/Reflex 2.7 mmol/L (0.5-2.2)
[2022-07-04 23:22] LABS: Reflex Lactate Order REFLEX LACTIC ORDERD
[2022-07-05] VITALS (20 sets, daily range): BP systolic 101–129; BP diastolic 53–70; PULSE 54–89; RESP 14–18; TEMP 36.2–36.9; O2SAT 92–99; BMI 23.5
[2022-07-05 00:21] LABS: Lactic Acid level (Lactate) 0.9 mmol/L (0.5-2.2)
[2022-07-05] MEDS: piperacillin-tazobactam 3.375 GM in sodium chloride 0.9% (plus) 50 ML IV ×3 (03:56→22:41)
[2022-07-05] MEDS: HYDROcodone-acetaminophen 5-325 mg Tablet 1 TAB PO ×2 (04:00→18:39)
[2022-07-05 05:34] LABS: Basophils % 0.9 %; Eosinophils # 0.2 10^3/uL (0.0-0.8); Eosinophils % 3.5 %; Hematocrit 30.8 % (42.0-52.0); Lymphocytes # 1.1 10^3/uL (0.8-4.8); Lymphocytes % 23.3 %; Mean Corpuscular HGB Conc 32.5 g/dL (30.0-36.0); Mean Corpuscular Hemoglobin 29.4 pg (28.0-34.0); Mean Corpuscular Volume 90.6 fl (80-94); Mean Platelet Volume 9.9 fL (7.4-10.4); Monocytes # 0.3 10^3/uL (0.2-0.9); Monocytes % 7.3 %; Neutrophils # 2.94 10^3/uL (1.8-7.7); Neutrophils % 64.6 %; Nucleated Red Blood Cells % 0 %; Platelet Count 257 10^3/cmm (130-400); Red Cell Distribution Width 14.6 % (12.1-15.1); White Blood Count 4.6 10^3/uL (4.0-10.0)
[2022-07-05 05:56] LABS: Alanine Aminotransferase 11 U/L (0-41); Albumin Level 2.4 g/dL (3.5-5.2); Alkaline Phosphatase 52 U/L (40-130); Anion Gap 14.2 (5-19); Aspartate Amino Transferase 14 U/L (0-40); Blood Urea Nitrogen 16 mg/dL (8-23); Calcium 8.3 mg/dL (8.5-10.5); Carbon Dioxide 23 mmol/L (22-29); Chloride 104 mmol/L (98-107); Creatinine Clr Calc Pharmacy 70.2811; Globulin 3.2 g/dL (1.3-4.6); Glucose 85 mg/dL (65-115); Magnesium 1.9 mg/dL (1.7-2.3); Osmolality Calculated 284 mOsm/kg (285-295); Phosphorus 2.9 mg/dL (2.5-4.5); Potassium 4.2 mmol/L (3.5-5.1); Sodium 137 mmol/L (136-145); Total Bilirubin 0.3 mg/dL (0.15-1.2); Total Protein 5.6 g/dL (6.6-8.7)
[2022-07-05 06:26] LABS: Estmated Average Glucose 94; Hemoglobin A1C 4.9 % (4.0-6.0)
--- NOTE | 2022-07-05 07:43 | PM.CONSULT ---
Providers/Reason For Consult Consulting Physician/Specialty*: Henry Izquierdo D.P.M. Reason for Consult*: Left foot infection Attending Physician: Parag Gutierrez MD Primary Care Provider: Parker Ashby DO History of Present Illness History of Present Illness Rigo Santiago is a 76 year old nondiabetic male with peripheral neuropathy presents with a wound to his left great toe that demonstrate increased redness, drainage and overall worsening of his wound approximately 3 days ago.? He has had a chronic wound under the ball of his left foot which then extended to his left great toe.? They presented to the emergency department last night laboratory and x-ray work-up was not impressive, x-ray was negative for osteomyelitis, white count was 6.5.? His most concerning lab was his CRP at 77.3.? He denies subjective fevers or chills.? Endorses increased pain to his left great toe.? He is accompanied by family. Review of Systems General: Reports: 10 or more systems reviewed and unremarkable except in HPI and below Const: Denies: fever(s) or chills Eyes: Denies: change in vision Card: Denies: chest pain or palpitations Resp: Denies: dyspnea or productive cough GI: Denies: abdominal pain, nausea or vomiting : Denies: flank pain Musc: Reports: extremity swelling, joint stiffness and deformity Skin/Breast: Reports: erythema, sores, changes in skin color, dry skin, nail changes and change in hair Neuro: Reports: numbness in extremities, sensory changes and difficulty walking Psych: Denies: suicidal ideation Endo: Denies: change in body appearance Dylan/Lymph: Denies: tender lymph nodes Medications/Allergies Home Medications Medication Instructions Recorded Confirmed Last Taken Type Diabetic Shoes #1 ea 12/11/19 07/04/22 Unknown Rx apixaban 5 mg tablet (Eliquis) 5 mg PO BID #60 tabs 04/13/22 07/04/22 Unknown Rx atorvastatin 40 mg tablet 40 mg PO BEDTIME #90 tabs 04/13/22 07/04/22 Unknown Rx furosemide 40 mg tablet 40 mg PO DAILY@0800 #30 tabs 04/13/22 07/04/22 Unknown Rx gabapentin 300 mg capsule 300 mg PO TID 90 days #270 caps 04/13/22 07/04/22 Unknown Rx isosorbide mononitrate 30 mg 30 mg PO DAILY 90 days #90 tabs 04/13/22 07/04/22 Unknown Rx tablet,extended release 24 hr lisinopril 20 mg tablet 20 mg PO DAILY #90 tabs 04/13/22 07/04/22 Unknown Rx loratadine 10 mg tablet (Allergy 10 mg PO DAILY 90 days #90 tabs 04/13/22 07/04/22 Unknown Rx Relief (loratadine)) metoprolol tartrate 50 mg tablet 50 mg PO BID #180 tabs 04/13/22 07/04/22 Unknown Rx polyethylene glycol 3350 17 17 g PO BID #510 grams 04/13/22 07/04/22 Unknown Rx gram/dose oral powder (Miralax) tamsulosin 0.4 mg capsule (Flomax) 0.4 mg PO DAILY 90 days #90 caps 04/13/22 07/04/22 Unknown Rx tizanidine 4 mg tablet 4 mg PO TID PRN muscle spasticity 04/13/22 07/04/22 Unknown Rx 90 days #270 tabs mupirocin 2 % topical ointment 1 applic topical BID #22 grams 04/19/22 07/04/22 Unknown Rx aspirin 81 mg tablet,delayed 81 mg PO DAILY #90 tabs 05/09/22 07/04/22 Unknown Rx release (Adult Aspirin Regimen) ferrous gluconate 324 mg (37.5 mg 324 mg PO BIDWM #60 tabs 05/09/22 07/04/22 Unknown Rx iron) tablet sodium chloride 1,000 mg soluble See Rx Instructions .Route 05/28/22 07/04/22 Unknown Rx tablet .COMPLEX #90 tabs hydrocodone 5 mg-acetaminophen 325 1 tab PO Q4H PRN pain 1 month #90 06/20/22 07/04/22 Unknown Rx mg tablet tabs honey 100 % topical paste 1 applic topical BID #103 mL 06/23/22 07/04/22 Unknown Rx (MediHoney (honey)) sulfamethoxazole 800 1 tab PO BID 10 days #20 tabs 07/03/22 07/04/22 Unknown Rx mg-trimethoprim 160 mg tablet Allergies Allergy/AdvReac Type Severity Reaction Status Date / Time magnesium oxide Allergy Unknown Verified 07/04/22 16:19 quinidine Allergy Unknown Verified 07/04/22 16:19 thioridazine [From Mellaril] Allergy Unknown Verified 07/04/22 16:19 Current Medications Generic Name Dose Route Start Last Admin Trade Name Freq PRN Reason Stop Dose Admin Hydrocodone Bitart/Acetaminophen 1 tab 07/04/22 17:32 07/05/22 04:00 Hydrocodone-Acetaminophen 5-325 Mg Tablet PO 1 tab Q4H PRN Administration MODERATE PAIN Atorvastatin Calcium 40 mg 07/04/22 21:00 07/04/22 20:34 Atorvastatin 40 Mg Tablet PO 40 mg BEDTIME CEASAR Administration Ferrous Gluconate 324 mg 07/04/22 18:00 07/04/22 18:25 Ferrous Gluconate 324 Mg Tablet PO 324 mg BIDWM CEASAR Administration Gabapentin 300 mg 07/04/22 21:00 07/04/22 20:34 Gabapentin 300 Mg Capsule PO 300 mg TID CEASAR Administration Piperacillin Sod/Tazobactam 50 mls @ 12.5 mls/hr 07/04/22 18:45 07/05/22 03:56 Sod 3.375 gm/ Sodium Chloride IV 12.5 mls/hr Q8H CEASAR Administration Protocol As Directed Vancomycin HCl 1,000 mg/ 250 mls @ 250 mls/hr 07/04/22 20:00 07/04/22 21:43 Sodium Chloride IV Infused Q12H CEASAR Infusion Metoprolol Tartrate 50 mg 07/04/22 21:00 07/04/22 20:34 Metoprolol Tartrate 50 Mg Tablet PO 50 mg BID@0900,2100 CEASAR Administration Polyethylene Glycol 17 gm 07/04/22 18:00 07/04/22 18:26 Polyethylene Glycol 3350 Pkt 17 Gm PO Not Given BID CEASAR PFSH Acute PFSH: Medical History (Updated 07/04/22 @ 23:06 by Parag Gutierrez MD) CAD (coronary artery disease) CAD (coronary artery disease) Chronic ulcer of left foot with fat layer exposed DJD (degenerative joint disease) Dyslipidemia Essential hypertension EtOH dependence GERD (gastroesophageal reflux disease) Hammer toe 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 Left leg DVT Neuropathy Osteoarthritis of left knee Polyarticular arthritis Polymyalgia Positive cardiac stress test Psoriasis Family History Father Dementia Mother Cancer BRAIN TUMOR Social History Smoking and tobacco status: current every day smoker Second hand smoke exposure: Yes Smoking risk assessment/counseling performed?: No Alcohol intake: unknown Desire information about alcohol rehabilitation?: No Counseling given: No Desire information about substance/drug rehabilitation?: No Counseling given: No Adopted: No Caregiver/support person: No Lives independently: Yes Household members: none Housing: House Marital status: / Number of children: 0 service: Yes branch: [employer] Current occupational status: retired Pets and animals: Yes Current gender identity: Male Vitals/I&O/Wt Last Vital Signs Temp 98.2 F 07/05/22 04:00 Pulse 54 L 07/05/22 06:00 Resp 16 07/05/22 04:00 BP 112/60 07/05/22 04:00 Pulse Ox 95 07/05/22 04:00 O2 Del Method 07/05/22 04:00 07/04/22 07/05/22 07/05/22 22:59 06:59 14:59 Intake Total 250 / 250 50 / 300 Output Total 350 / 350 Balance 250 / 250 -300 / -50 Weight last 48 hrs Weight 159 lb 1 oz Weight 158 lb 6.4 oz Physical Exam Narrative: ?Patient is alert and oriented ?3 and in no acute distress.? The following is a focused bilateral lower extremity exam. VASCULAR: Dorsalis pedis arteries palpable +2, posterior tibial arteries nonpalpable bilaterally.? Capillary refill time less than 5 seconds to the distal left hallux and right second toe. Calf is supple and nontender proximally and distally.? Diminished hair growth at bilateral legs and feet.? Varicosities to the lower extremities. NEUROLOGICAL: Protective sensation intact 0/10 sites, tested with Ortley Nolan monofilament to bilateral feet. DERMATOLOGICAL: Boggy wound probes directly to bone at the left plantar hallux has purulent drainage and foul malodor, localized erythema with proximal streaking to the midfoot, wound measures 1 cm x 1.1 cm x 0.8 cm.? Wound Sub first metatarsal head left foot with hyperkeratotic rim with mild maceration has a more viable granular base with some undermining at the margin measures 2.1 cm x 2.2 cm x 1.3 cm. MUSCULOSKELETAL: Status post right hallux amputation. Left hallux malleus deformity this is nonreducible.? Hammertoes 2 through 5 bilaterally these are reducible.? First metatarsal phalangeal joint dorsiflexion 55 degrees left.? Pes planus foot type bilaterally.? Muscle strength 5 out of 5 in all 3 cardinal planes to bilateral foot and ankle. 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 He has had a chronic wound under the ball of his left foot which then extended to his left great toe.? They presented to the emergency department last night laboratory and x-ray work-up was not impressive, x-ray was negative for osteomyelitis, white count was 6.5.? His most concerning lab was his CRP at 77.3.? He denies subjective fevers or chills.? Endorses increased pain to his left great toe.? He is accompanied by family. Was placed on Bactrim DS and took his first dose yesterday ? 1500 mg of vancomycin also administered IV in the emergency department last night. Wound is worsening has increased cellulitis, increased edema and increased pain to the left foot. Wound probes directly to bone, clinical concern for acute osteomyelitis Discussed bone culture with IV antibiotics and wound care versus amputation with delayed closure pending soft tissue response during hospitalization.? Patient wishes to proceed with amputation.? Has had a PICC line in the past which had failed and he does not want to go that route. Wound was debrided, aerobic and anaerobic cultures taken in podiatry clinic X-ray left foot reviewed taken 07/03/2022 negative for soft tis Recommend admission to the hospital service for IV antibiotics and surgical intervention to his left foot, planning on left hallux amputation tomorrow followed by primary delayed closure pending soft tissue response to IV antibiotics during his hospitalization. 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
[2022-07-05] MEDS: vancomycin 1,000 MG in sodium chloride 0.9% 250 ML 250 MG IV ×2 (11:00→20:49)
[2022-07-05] MEDS: morphine 4 mg/mL SDV 1 mL 1 MG IVP ×2 (11:07→20:26)
[2022-07-05] MEDS: pantoprazole DR 40 mg Tablet PO (11:17)
--- NOTE | 2022-07-05 11:38 | ANES.PREANE2 ---
Pre-Anesthetic Assessment Height/Weight: Height 1.75 m Weight 72.15 kg Temp Pulse Resp BP Pulse Ox O2 Del Method 98.3 F 60 18 126/63 96 07/05/22 11:30 07/05/22 11:30 07/05/22 11:30 07/05/22 11:30 07/05/22 11:30 07/05/22 11:30 Preop Diagnosis: Osteomyelitis left great toe Operation Date: 07/05/22 12:20 Proposed Procedures p Amputation Transmetatarsal- Left Great Toe Amputation(Left) - Henry Izquierdo DPM Familial anesthetic complications: None Was Beta Ai taken within 24 hours: Yes Was Clonidine taken within 24 hours: N/A Last intake: Intake Last Liquid Date 07/04/22 Last Liquid Time 19:00 Last Solid Date 07/04/22 Last Solid Time 17:00 Social Tobacco and No alcohol Exam alert, oriented x 3, clear to auscultation bilaterally and regular rate & rhythm Airway Dentition: false CV/HEM Coronary Artery Disease, Congestive Heart Failure and Hypertension Myocardial Perfusion scan IMPRESSIONS ?1.? Myocardial perfusion imaging revealing moderate area of moderate to ?severely decreased tracer uptake in the inferior, inferolateral, inferoseptal ?and apex, with a significant reversibility, suggesting myocardial ischemia in ?the distribution of the right coronary artery predominantly with some ?involvement of the left circumflex artery. ?2.? Diminished LV ejection fraction 37%. ?3.? LV wall motion analysis revealing severe diffuse hypokinesia of the septum ?and LV apex ?4.? Moderately dilated LV cavity with an end-systolic volume of 125 mL. ?No similar previous studies are available for comparison Echo CONCLUSIONS ?Normal left ventricular cavity size. Normal left ventricular ?wall thickness. Mildly decreased left ventricular systolic ?function. Global left ventricular hypokinesis. Grade I/IV ?diastolic dysfunction (abnormal relaxation filling pattern), ?normal to mildly elevated filling pressures. Left ventricular ?ejection fraction is estimated at 40 %. ?Normal right ventricular size and systolic function. Severe ?pulmonary hypertension, RVSP 79.3 mmHg. ?Mild LAE. ?Structurally normal mitral valve. Mild mitral valve ?regurgitation. ?Moderate aortic valve calcification. [id number] aortic ?valve regurgitation. Moderate aortic valve stenosis, mean ?gradient 22.3 mmHg, JASE 0.91 cm squared. ?There are no prior echocardiogram studies to compare. Sestamibi CONCLUSION: 1. No significant EKG changes with the LexiScan infusion 2. No LexiScan induced chest pain or cardiac arrhythmia 3. Normal blood pressure and heart rate response 4. Sestamibi/sestamibi perfusion scan pending; see separate report. GI Gastroesophageal Reflux Disease Anesthetic Plan ASA status: 4 Anesthesia: MAC Other: Discussed with patient higher risk of anesthesia d/t comordibities, wishes to proceed Risk of > 500 ml blood loss (7ml/kg in children): No Medications/Allergies Home Medications Medication Instructions Recorded Confirmed Last Taken Type Diabetic Shoes #1 ea 12/11/19 07/05/22 Unknown Rx apixaban 5 mg tablet (Eliquis) 5 mg PO BID #60 tabs 04/13/22 07/05/22 Unknown Rx atorvastatin 40 mg tablet 40 mg PO BEDTIME #90 tabs 04/13/22 07/05/22 Unknown Rx furosemide 40 mg tablet 40 mg PO DAILY@0800 #30 tabs 04/13/22 07/05/22 Unknown Rx gabapentin 300 mg capsule 300 mg PO TID 90 days #270 caps 04/13/22 07/05/22 Unknown Rx isosorbide mononitrate 30 mg 30 mg PO DAILY 90 days #90 tabs 04/13/22 07/05/22 Unknown Rx tablet,extended release 24 hr lisinopril 20 mg tablet 20 mg PO DAILY #90 tabs 04/13/22 07/05/22 Unknown Rx loratadine 10 mg tablet (Allergy 10 mg PO DAILY 90 days #90 tabs 04/13/22 07/05/22 Unknown Rx Relief (loratadine)) metoprolol tartrate 50 mg tablet 50 mg PO BID #180 tabs 04/13/22 07/05/22 Unknown Rx polyethylene glycol 3350 17 17 g PO BID #510 grams 04/13/22 07/05/22 Unknown Rx gram/dose oral powder (Miralax) tamsulosin 0.4 mg capsule (Flomax) 0.4 mg PO DAILY 90 days #90 caps 04/13/22 07/05/22 Unknown Rx tizanidine 4 mg tablet 4 mg PO TID PRN muscle spasticity 04/13/22 07/05/22 Unknown Rx 90 days #270 tabs mupirocin 2 % topical ointment 1 applic topical BID #22 grams 04/19/22 07/05/22 Unknown Rx aspirin 81 mg tablet,delayed 81 mg PO DAILY #90 tabs 05/09/22 07/05/22 Unknown Rx release (Adult Aspirin Regimen) ferrous gluconate 324 mg (37.5 mg 324 mg PO BIDWM #60 tabs 05/09/22 07/05/22 Unknown Rx iron) tablet sodium chloride 1,000 mg soluble See Rx Instructions .Route 05/28/22 07/05/22 Unknown Rx tablet .COMPLEX #90 tabs hydrocodone 5 mg-acetaminophen 325 1 tab PO Q4H PRN pain 1 month #90 06/20/22 07/05/22 Unknown Rx mg tablet tabs honey 100 % topical paste 1 applic topical BID #103 mL 06/23/22 07/05/22 Unknown Rx (MediHoney (honey)) sulfamethoxazole 800 1 tab PO BID 10 days #20 tabs 07/03/22 07/05/22 Unknown Rx mg-trimethoprim 160 mg tablet Allergies Allergy/AdvReac Type Severity Reaction Status Date / Time magnesium oxide Allergy Unknown Verified 07/04/22 16:19 quinidine Allergy Unknown Verified 07/04/22 16:19 thioridazine [From Mellaril] Allergy Unknown Verified 07/04/22 16:19 Current Medications Generic Name Dose Route Start Last Admin Trade Name Freq PRN Reason Stop Dose Admin Hydrocodone Bitart/Acetaminophen 1 tab 07/04/22 17:32 07/05/22 04:00 Hydrocodone-Acetaminophen 5-325 Mg Tablet PO 1 tab Q4H PRN Administration MODERATE PAIN Aspirin 81 mg 07/05/22 09:00 07/05/22 11:01 Aspirin 81 Mg Ec Tablet PO Not Given DAILY CEASAR Atorvastatin Calcium 40 mg 07/04/22 21:00 07/04/22 20:34 Atorvastatin 40 Mg Tablet PO 40 mg BEDTIME CEASAR Administration Ferrous Gluconate 324 mg 07/04/22 18:00 07/05/22 11:00 Ferrous Gluconate 324 Mg Tablet PO Not Given BIDWM CEASAR Gabapentin 300 mg 07/04/22 21:00 07/05/22 11:17 Gabapentin 300 Mg Capsule PO Not Given TID CEASAR Piperacillin Sod/Tazobactam 50 mls @ 12.5 mls/hr 07/04/22 18:45 07/05/22 03:56 Sod 3.375 gm/ Sodium Chloride IV 12.5 mls/hr Q8H CEASAR Administration Protocol As Directed Vancomycin HCl 1,000 mg/ 250 mls @ 250 mls/hr 07/04/22 20:00 07/05/22 11:00 Sodium Chloride IV 250 mls/hr Q12H CEASAR Administration Isosorbide Mononitrate 30 mg 07/05/22 09:00 07/05/22 11:17 Isosorbide Mononitrate Er 30 Mg Tablet PO Not Given DAILY CEASAR Metoprolol Tartrate 50 mg 07/04/22 21:00 07/05/22 11:17 Metoprolol Tartrate 50 Mg Tablet PO Not Given BID@0900,2100 [facility] Morphine Sulfate 1 mg 07/04/22 17:40 07/05/22 11:07 Morphine 4 Mg/Ml Sdv 1 Ml IVP 1 mg Q4H PRN Administration SEVERE PAIN Pantoprazole Sodium 40 mg 07/05/22 09:00 07/05/22 11:[address] 40 Mg Tablet PO 40 mg DAILY CEASAR Administration Polyethylene Glycol 17 gm 07/04/22 18:00 07/05/22 11:02 Polyethylene Glycol 3350 Pkt 17 Gm PO Not Given BID CEASAR Tamsulosin HCl 0.4 mg 07/05/22 09:00 07/05/22 11:02 Tamsulosin 0.4 Mg Capsule PO Not Given DAILY CEASAR PFSH Anesthesia Medical History (Updated 07/04/22 @ 23:06 by Parag Gutierrez MD) CAD (coronary artery disease) CAD (coronary artery disease) Chronic ulcer of left foot with fat layer exposed DJD (degenerative joint disease) Dyslipidemia Essential hypertension EtOH dependence GERD (gastroesophageal reflux disease) Hammer toe 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 Left leg DVT Neuropathy Osteoarthritis of left knee Polyarticular arthritis Polymyalgia Positive cardiac stress test Psoriasis Family History Father Dementia Mother Cancer BRAIN TUMOR Social History Smoking and tobacco status: current every day smoker Second hand smoke exposure: Yes Smoking risk assessment/counseling performed?: No Alcohol intake: unknown Desire information about alcohol rehabilitation?: No Counseling given: No Desire information about substance/drug rehabilitation?: No Counseling given: No Adopted: No Caregiver/support person: No Lives independently: Yes Household members: none Housing: House Marital status: / Number of children: 0 service: Yes branch: [employer] Current occupational status: retired Pets and animals: Yes Current gender identity: Male Data Anesthesia 07/05/22 05:25 07/05/22 05:25 Short CBC 07/04/22 07/05/22 Range/Units 17:59 05:25 WBC 5.5 4.6 (4.0-10.0) 10^3/uL Hgb 11.1 L 10.0 L (11.7-16.6) g/dL Hct 33.9 L 30.8 L (42.0-52.0) % MCV 90.4 90.6 (80-94) fl Plt Count 264 257 (130-400) 10^3/cmm Neut % (Auto) 66.8 64.6 % Neut # (Auto) 3.66 2.94 (1.8-7.7) 10^3/uL BMP 07/04/22 07/05/22 17:59 05:25 Sodium 140 137 Potassium 3.8 4.2 Chloride 102 104 Carbon Dioxide 25 23 BUN 17 16 Creatinine 0.8 0.9 Glucose 89 85 Calcium 8.6 8.3 L Liver Function 07/04/22 07/05/22 Range/Units 17:59 05:25 Total Bilirubin 0.2 0.3 (0.15-1.2) mg/dL AST 18 14 (0-40) U/L ALT 14 11 (0-41) U/L Alkaline Phosphatase 73 52 (40-130) U/L Albumin 3.0 L 2.4 L (3.5-5.2) g/dL Urine 07/04/22 Range/Units 19:00 Urine Color Yellow (Yellow) Urine Appearance Clear (CLEAR) Urine pH 6.5 (5-7) Ur Specific [place] 1.010 (1.005-1.030) Urine Protein Neg (Negative) Urine Glucose (UA) Norm (Normal) Urine Ketones Negative (Negative) Urine Nitrate Negative (Negative) Urine Bilirubin Neg (Negative) Ur Leukocyte Esterase Negative (Negative) Microbiology 07/04/22 19:00 Bacterial Antigens - Final Urine Kidney 07/04/22 19:00 Legionella Urinary Antigen - Final Unknown Source 07/04/22 18:08 Blood Culture - Preliminary Blood SPECIMEN COLLECTED 07/04/22 17:59 Blood Culture - Preliminary Blood SPECIMEN COLLECTED Cardiac Studies: Echocardiogram 12/24/21 Sestamibi Stress Test (Cardiology) 12/26/21
[2022-07-05] MEDS: sodium chloride 0.9% 1,000 ML 30 ML IV (11:48)
--- NOTE | 2022-07-05 12:10 | W.PM.OPSUD ---
Surgery/Procedure H&P Update DATE OF PROCEDURE: July 05, 2022 DATE H&P PERFORMED: 07/04/22 CHANGES TO PREVIOUS DOCUMENTATION: none PREOP DIAGNOSIS: Osteomyelitis left great toe PLANNED PROCEDURE: Operation Date: 07/05/22 12:20 Proposed Procedures p Amputation Transmetatarsal- Left Great Toe Amputation(Left) - Henry Izquierdo DPM
[2022-07-05] MEDS: lidocaine 2% INJ 20 mL 15 ML INJECTION (12:22)
--- NOTE | 2022-07-05 12:38 | PM.OP ---
Operative Report Date of procedure: July 05, 2022 Pre-op diagnosis: Acute osteomyelitis left great toe proximal phalanx Post-op diagnosis: Same Post-op findings: Devitalized soft tissue and bone left great toe Procedure done: Left great toe amputation at metatarsophalangeal joint. CPT code 94353 Implants: None Pathology: Left great toe sent to pathology for permanent Surgeon: Henry Izquierdo D.P.M. [employer] Consultant: Khushboo Estimated blood loss: 5 No tourniquet IV fluids: 0 Urine output: None Complications: None Findings: Devitalized soft tissue and bone left great toe Brief History: Rapid progression of acute infection to the left great toe, was initially seen in the emergency department 07/03/2022, wound began last week. Presented to podiatry clinic 07/04/2022, wound was assessed and noted to have cellulitis, wound probes directly to bone at the base of the proximal phalanx, cultures were taken and patient was admitted to the hospital service for IV antibiotics and surgical intervention. Procedure: Under mild sedation the patient was brought to the operating room and remained on the gurney in supine position. A timeout was performed. Anesthesia was then administered by the anesthesia service. Local anesthesia was injected by myself consisting of one-to-one mixture 2% lidocaine and 0.5% Marcaine plain total of 30 cc utilized in a left Mary block fashion. Well-padded pneumatic tourniquet applied to the left ankle however this was never utilized or inflated during the duration of procedure. Left lower extremity was scrubbed, prepped and draped utilizing normal aseptic technique. Attention was directed to the left great toe where a full-thickness wound was appreciated at the plantar aspect at the base of the left hallux that probes directly to bone with devitalized soft tissue and devitalized bone cortex, he had a second wound Sub first metatarsal head and had granular base is graded as a Sheehan grade 2 wound with undermining at the margin. The left great toe had a betancur dusky appearance and had foul purulent drainage from the wound. [place] incision was performed encompassing the left great toe at the metatarsal phalangeal joint full-thickness down to bone and the left great toe was disarticulated sharply and passed from the operative field this was sent to pathology for permanent. There was residual soft tissue cellulitis and for this reason the wound was packed saline wet-to-dry to continue empiric IV antibiotics and close monitoring may require secondary closure pending soft tissue response. Dressing of saline wet-to-dry utilizing 4 x 4 gauze, Kerlix and Coban. Patient tolerated the procedure and anesthesia well and was transferred to the PACU with vital signs stable and vascular status intact. Following a period of postoperative monitoring he will be transferred back to the floor to continue empiric IV antibiotics, plan for potential delayed closure this Sunday pending soft tissue viability at that point.
--- NOTE | 2022-07-05 13:12 | PM.PN ---
Subjective Subjective: No acute events overnight. Patient lying comfortably in bed. Awaiting surgery eagerly as he is hungry. Denies any nausea vomiting, headache. Wants me to speak with Ms. Seaman regarding further medical problems. On speaking with Ms. Clancy she states she will be taking patient back home postoperatively. She states he has not followed up with hydrographic surveyor as recommended on last discharge as he has been noncompliant. States he takes his medications also sporadically but going forward as he will be living with her, he will be more regular. Vitals/I&O/Wt Last Vital Signs Temp 97.2 F L 07/05/22 12:54 Pulse 57 L 07/05/22 12:54 Resp 16 07/05/22 12:54 BP 123/66 07/05/22 12:54 Pulse Ox 98 07/05/22 12:54 O2 Del Method 07/05/22 12:54 O2 Flow Rate 6 07/05/22 12:43 07/04/22 07/05/22 07/05/22 22:59 06:59 14:59 Intake Total 250 / 250 50 / 300 75 / 75 Output Total 350 / 350 0 / 0 Balance 250 / 250 -300 / -50 75 / 75 Weight last 48 hrs Weight 72.15 kg Weight 71.849 kg Physical Exam Narrative: General: No acute distress, AO x3 HEENT: PERRLA, pupils bilaterally equal and reactive Chest: Normal vesicular breath sounds, no added sounds, equal good air entry bilaterally CVS: S1-S2 regular, no murmurs, no tachycardia, no gallops, no rubs Abdomen: Soft, nontender, no organomegaly, bowel sounds present Neuro: No focal deficits, no facial deformity, AO x3, power 5/5 in all limbs Extremities: Surgically bandaged from the podiatry office. 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 Continue with aspirin and statin. Check A1c. (5) Congestive heart failure (CHF): Patient fairly well compensated for now. Last echocardiogram done in November 2021 shows an EF of 40%, grade 1 diastolic dysfunction, global LV hypokinesia, severe pulmonary hypertension with RVSP of 30 mmHg, moderate aortic stenosis with mild to moderate aortic regurgitation. Cardiac stress test in November 2021 shows moderate to severe decreased uptake in inferior, inferior lateral, inferior septal and apex with significant reversibility suggestive of myocardial ischemia in RCA with some involvement of LCx. Continue home dose of Imdur, aspirin, statin, metoprolol. Given plan for or tomorrow we will hold off on Lasix today. Monitor for fluid overload. Qualifiers: Heart failure type: combined systolic and diastolic Heart failure chronicity: acute on chronic Qualified Code(s): I50.43 - Acute on chronic combined systolic (congestive) and diastolic (congestive) heart failure (6) Positive cardiac stress test: Patient will follow-up with cardiology as an outpatient for further evaluation and management with possible cardiac angiogram. (7) Aortic valve stenosis, moderate: (8) Moderate aortic valve regurgitation: (9) Severe pulmonary hypertension: (10) Peripheral neuropathy: Plan Appreciate labs done in ER on 07/03. Chronic left toe open wound/osteomyelitis/cellulitis: Sent in from podiatry clinic. Plan for amputation as per discussion between the patient and the profiling machine set up operator on 07/05. Continue with empiric vancomycin and Zosyn as per creatinine clearance. Arterial duplex negative for PAD. Follow-up with blood cultures, MRSA swab. If MRSA swab is negative can discontinue vancomycin. Physical therapy, anticoagulation, pain management as per podiatry team Continue other chronic medications including salt tablet, gabapentin, iron supplementation, home dose of hydrocodone. Full code. NPO. Cardiac diet postoperatively. Protonix OPD prophylaxis. SCDs for DVT prophylaxis. Hold off on medical prophylaxis. Attestations Medical Necessity Statement*: Requires further hospitalization for management with amputation for chronic left toe wound leading to osteomyelitis Coding Level of Care Code 75805 High MDM includes number and complexity of problems actively addressed during encounter, amount and/or complexity of data reviewed/ordered [ previous or external records, resulted lab(s)/test(s), ordered lab(s)/test(s), independent historian (Care discussed in detail with Ms. Clancy and patient. 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
--- NOTE | 2022-07-05 14:39 | ANE.PACU2 ---
Inpatient post-anesthesia follow up: Airway intact: Yes Vital signs: Temperature 97.2 F Pulse Rate 57 Respiratory Rate 16 Blood Pressure 123/66 Pulse Oximetry 98 Oxygen Delivery Me thod Room Air Oxygen Flow Rate 6 Fraction of Inspir ed Oxygen Hydration adequate: Yes Nausea and vomiting: No Pain level: 1 Mental status: Baseline
[2022-07-05] MEDS: gabapentin 300 mg Capsule PO ×2 (14:40→21:31)
[2022-07-05] MEDS: ferrous gluconate 324 mg Tablet PO (18:39)
[2022-07-05] MEDS: atorvastatin 40 mg Tablet PO (21:31)
[2022-07-05] MEDS: metoprolol tartrate 50 mg Tablet PO (21:31)
[2022-07-06] VITALS (8 sets, daily range): BP systolic 100–122; BP diastolic 61–75; PULSE 54–87; RESP 16–19; TEMP 36.6–37.3; O2SAT 92–97; BMI 24.7
[2022-07-06] MEDS: piperacillin-tazobactam 3.375 GM in sodium chloride 0.9% (plus) 50 ML IV ×3 (06:12→21:43)
[2022-07-06 07:28] LABS: Basophils % 0.7 %; Eosinophils # 0.1 10^3/uL (0.0-0.8); Eosinophils % 2.4 %; Hematocrit 32.2 % (42.0-52.0); Hemoglobin 10.2 g/dL (11.7-16.6); Lymphocytes # 1.2 10^3/uL (0.8-4.8); Lymphocytes % 20.6 %; Mean Corpuscular HGB Conc 31.7 g/dL (30.0-36.0); Mean Corpuscular Hemoglobin 29.4 pg (28.0-34.0); Mean Corpuscular Volume 92.8 fl (80-94); Mean Platelet Volume 10.2 fL (7.4-10.4); Monocytes # 0.6 10^3/uL (0.2-0.9); Monocytes % 9.9 %; Neutrophils % 66.2 %; Nucleated Red Blood Cells % 0 %; Platelet Count 262 10^3/cmm (130-400); Red Blood Count 3.47 10^6/uL (4.1-5.3); White Blood Count 5.9 10^3/uL (4.0-10.0)
--- NOTE | 2022-07-06 07:34 | P.PN_ITS ---
Subjective Subjective: Patient seen bedside this morning, he is 1 day status post left hallux amputation secondary to acute infection with cellulitis and devitalized tissue down to bone. Doing well postoperatively. Denies any pain to the left foot. Denies any acute events overnight. Tolerating regular diet. He expr esses concern about his pets at home being tended to, is frustrated with family that agreed to take care of them while he is away. He is getting antsy and wanting to go home. Patient denies any subjective nausea, vomiting, fever, chills, shortness of breath or chest pain. Vitals/I&O/Wt Last Vital Signs Temp 99.1 F 07/06/22 04:00 Pulse 55 L 07/06/22 04:00 Resp 16 07/06/22 04:00 BP 112/61 07/06/22 04:00 Pulse Ox 92 07/06/22 04:00 O2 Del Method 07/06/22 04:00 O2 Flow Rate 6 07/05/22 12:43 07/05/22 07/06/22 07/06/22 22:59 06:59 14:59 Intake Total 540 / 865 50 / 915 Output Total 400 / 400 Balance 140 / 465 50 / 515 Weight last 48 hrs Weight 167 lb 2 oz Weight 159 lb 1 oz Weight 158 lb 6.4 oz Physical Exam Narrative: ?Patient is alert and oriented ?3 and in no acute distress.? The following is a focused bilateral lower extremity exam. VASCULAR: Dorsalis pedis arteries palpable +2, posterior tibial arteries nonpalpable bilaterally.? Capillary refill time less than 5 seconds to the distal left hallux and right second toe. Calf is supple and nontender proximally and distally.? Diminished hair growth at bilateral legs and feet.? Varicosities to the lower extremities. NEUROLOGICAL: Protective sensation intact 0/10 sites, tested with [place] Nolan monofilament to bilateral feet. DERMATOLOGICAL: Improved soft tissue to the left foot, resolving cellulitis at the amputation site, no purulence at the left foot wound or amputation site. Capillary refill at skin flap of amputation site 5 seconds. MUSCULOSKELETAL: Status post right hallux amputation. Status post left great toe amputation. Hammertoes 2 through 5 bilaterally these are reducible.? First metatarsal phalangeal joint dorsiflexion 55 degrees left.? Pes planus foot type bilaterally.? Muscle strength 5 out of 5 in all 3 cardinal planes to bilateral foot and ankle. 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 Soft tissue improvement, planning on primary delayed closure tomorrow morning first thing 07/07/2022 Will be n.p.o. at midnight FADIA&O to dispense OrthoWedge heel shoe to offload the forefoot, will be dispensed today Continuing empiric of antibiotics for now, pending intraoperative findings at closure could potentially go home on 2 weeks of oral antibiotics Discharge planning: Could potentially be discharged tomorrow p.m. 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
[2022-07-06 07:48] LABS: Vancomycin Trough 18.1 ug/mL (10-15)
[2022-07-06 08:11] LABS: Albumin Level 2.5 g/dL (3.5-5.2); Alkaline Phosphatase 55 U/L (40-130); Anion Gap 14.1 (5-19); Blood Urea Nitrogen 18 mg/dL (8-23); Calcium 8.4 mg/dL (8.5-10.5); Carbon Dioxide 22 mmol/L (22-29); Chloride 100 mmol/L (98-107); Creatinine Clr Calc Pharmacy 80.8253; Globulin 3.6 g/dL (1.3-4.6); Glucose 80 mg/dL (65-115); Osmolality Calculated 273 mOsm/kg (285-295); Potassium 5.1 mmol/L (3.5-5.1); Sodium 131 mmol/L (136-145); Total Bilirubin 0.2 mg/dL (0.15-1.2); Total Protein 6.1 g/dL (6.6-8.7)
[2022-07-06 08:12] LABS: Alanine Aminotransferase 11 U/L (0-41); Aspartate Amino Transferase 19 U/L (0-40)
[2022-07-06] MEDS: tamsulosin 0.4 mg Capsule PO (10:19)
[2022-07-06] MEDS: aspirin 81 mg EC Tablet PO (10:20)
[2022-07-06] MEDS: gabapentin 300 mg Capsule PO ×3 (10:20→20:09)
[2022-07-06] MEDS: isosorbide mononitrate ER 30 mg Tablet PO (10:20)
[2022-07-06] MEDS: pantoprazole DR 40 mg Tablet PO (10:20)
[2022-07-06] MEDS: ferrous gluconate 324 mg Tablet PO ×2 (10:20→18:22)
[2022-07-06] MEDS: vancomycin 1,000 MG in sodium chloride 0.9% 250 ML 250 MG IV (11:02)
--- NOTE | 2022-07-06 14:02 | PM.PN ---
Subjective Subjective: No acute events overnight. Patient underwent amputation yesterday with podiatry. Tolerated procedure well. Denies any nausea, vomiting, headache. Has remained hemodynamically stable and afebrile. Vitals/I&O/Wt Last Vital Signs Temp 97.8 F 07/06/22 11:38 Pulse 87 07/06/22 11:38 Resp 19 H 07/06/22 11:38 BP 113/69 07/06/22 11:38 Pulse Ox 95 07/06/22 11:38 O2 Del Method 07/06/22 11:38 O2 Flow Rate 6 07/05/22 12:43 07/05/22 07/06/22 07/06/22 22:59 06:59 14:59 Intake Total 540 / 865 50 / 915 780 / 780 Output Total 400 / 400 Balance 140 / 465 50 / 515 780 / 780 Weight last 48 hrs Weight 75.807 kg Weight 72.15 kg Weight 71.849 kg Physical Exam Narrative: General: No acute distress, AO x3 HEENT: PERRLA, pupils bilaterally equal and reactive Chest: Normal vesicular breath sounds, no added sounds, equal good air entry bilaterally CVS: S1-S2 regular, no murmurs, no tachycardia, no gallops, no rubs Abdomen: Soft, nontender, no organomegaly, bowel sounds present Neuro: No focal deficits, no facial deformity, AO x3, power 5/5 in all limbs Extremities: Surgically bandaged from the podiatry office. 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 Continue with aspirin and statin. Check A1c. (5) Congestive heart failure (CHF): Patient fairly well compensated for now. Last echocardiogram done in November 2021 shows an EF of 40%, grade 1 diastolic dysfunction, global LV hypokinesia, severe pulmonary hypertension with RVSP of 30 mmHg, moderate aortic stenosis with mild to moderate aortic regurgitation. Cardiac stress test in November 2021 shows moderate to severe decreased uptake in inferior, inferior lateral, inferior septal and apex with significant reversibility suggestive of myocardial ischemia in RCA with some involvement of LCx. Continue home dose of Imdur, aspirin, statin, metoprolol. Given plan for or tomorrow we will hold off on Lasix today. Monitor for fluid overload. Qualifiers: Heart failure type: combined systolic and diastolic Heart failure chronicity: acute on chronic Qualified Code(s): I50.43 - Acute on chronic combined systolic (congestive) and diastolic (congestive) heart failure (6) Positive cardiac stress test: Patient will follow-up with cardiology as an outpatient for further evaluation and management with possible cardiac angiogram. (7) Aortic valve stenosis, moderate: (8) Moderate aortic valve regurgitation: (9) Severe pulmonary hypertension: (10) Peripheral neuropathy: Plan Chronic left toe open wound/osteomyelitis/cellulitis: Post toe amputation day 1. Follow-up OR cultures. Follow-up blood cultures. Outpatient cultures growing gram-negative rods and coag positive staph. MRSA negative. For now continue with Zosyn. We will hold off on vancomycin. Arterial duplex negative for PAD. Physical therapy, anticoagulation, pain management as per podiatry team Continue other chronic medications including salt tablet, gabapentin, iron supplementation, home dose of hydrocodone. Full code. Cardiac diet. Protonix for PUD prophylaxis. SCDs for DVT prophylaxis. Restart home dose Eliquis when okay with podiatry. Attestations Medical Necessity Statement*: Requires further hospitalization for management of osteomyelitis/cellulitis, post toe amputation while patient awaits secondary closure and follow-up on cultures. 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
[2022-07-06] MEDS: metoprolol tartrate 50 mg Tablet PO (20:09)
[2022-07-06] MEDS: atorvastatin 40 mg Tablet PO (20:09)
[2022-07-07] VITALS (14 sets, daily range): BP systolic 94–166; BP diastolic 59–90; PULSE 49–74; RESP 16–20; TEMP 36.3–36.8; O2SAT 91–100
[2022-07-07] MEDS: piperacillin-tazobactam 3.375 GM in sodium chloride 0.9% (plus) 50 ML IV (05:29)
[2022-07-07 05:51] LABS: Basophils % 0.8 %; Eosinophils # 0.1 10^3/uL (0.0-0.8); Eosinophils % 2.4 %; Hematocrit 30.8 % (42.0-52.0); Hemoglobin 9.9 g/dL (11.7-16.6); Lymphocytes # 1.1 10^3/uL (0.8-4.8); Lymphocytes % 21.8 %; Mean Corpuscular HGB Conc 32.1 g/dL (30.0-36.0); Mean Corpuscular Hemoglobin 29.6 pg (28.0-34.0); Mean Corpuscular Volume 91.9 fl (80-94); Mean Platelet Volume 9.9 fL (7.4-10.4); Monocytes # 0.5 10^3/uL (0.2-0.9); Monocytes % 9.8 %; Neutrophils # 3.24 10^3/uL (1.8-7.7); Nucleated Red Blood Cells % 0 %; Platelet Count 252 10^3/cmm (130-400); Red Blood Count 3.35 10^6/uL (4.1-5.3); Red Cell Distribution Width 14.7 % (12.1-15.1)
[2022-07-07 06:12] LABS: Alanine Aminotransferase 10 U/L (0-41); Albumin Level 2.4 g/dL (3.5-5.2); Alkaline Phosphatase 58 U/L (40-130); Anion Gap 12.5 (5-19); Aspartate Amino Transferase 13 U/L (0-40); Blood Urea Nitrogen 16 mg/dL (8-23); Calcium 8.4 mg/dL (8.5-10.5); Carbon Dioxide 23 mmol/L (22-29); Chloride 104 mmol/L (98-107); Globulin 3.5 g/dL (1.3-4.6); Glucose 86 mg/dL (65-115); Osmolality Calculated 280 mOsm/kg (285-295); Potassium 4.5 mmol/L (3.5-5.1); Sodium 135 mmol/L (136-145); Total Bilirubin 0.2 mg/dL (0.15-1.2); Total Protein 5.9 g/dL (6.6-8.7)
--- NOTE | 2022-07-07 06:21 | W.PM.OPSUD ---
Surgery/Procedure H&P Update DATE OF PROCEDURE: July 07, 2022 DATE H&P PERFORMED: 07/04/22 CHANGES TO PREVIOUS DOCUMENTATION: None PREOP DIAGNOSIS: Osteomyelitis left great toe PLANNED PROCEDURE: Operation Date: 07/05/22 12:20 Proposed Procedures p Amputation Transmetatarsal- Left Great Toe Amputation(Left) - Henry Izquierdo DPM Operation Date: 07/07/22 07:00 Proposed Procedures p Primary Delayed Closure Left Foot(Left) - Henry Izquierdo DPM
--- NOTE | 2022-07-07 06:27 | P.OP_ITS ---
Operative Report Date of procedure: July 07, 2022 Pre-op diagnosis: Acute osteomyelitis left great toe Status post left great toe amputation at metatarsophalangeal joint Post-op diagnosis: Same Procedure done: Primary delayed closure left foot. CPT code 68684 Implants: 2-0 Vicryl, 4-0 nylon Specimens removed/disposition: None Pathology: None Surgeon: Henry Izquierdo D.P.M. Estimated blood loss: 0 20 IV fluids: 0 Urine output: 0 Complications: None Findings: Devitalized sesamoids left first metatarsal phalangeal Brief History: Pleasant 76-year-old nondiabetic male with peripheral neuropathy admitted on healing chronic pressure ulceration subfirst metatarsal head has been longstanding and recalcitrant, he developed a new wound at the plantar left hallux cellulitis and wound to probe directly to bone. He is status post left hallux amputation, will require further devitalized tissue debridement and primary delayed closure. Risks include but are not limited to pain, bleeding, numbness, infection, surgical site dehiscence, extension of infection proximally into the foot and leg,, need for higher level amputation, need for wound care and antibiotic therapies in the future. Transfer pressure, transfer lesions, new wound formation. Procedure: Under mild sedation the patient was brought to the operating room and remained on the gurney in supine position. A timeout was performed. Anesthesia was then administered by the anesthesia service. Local anesthesia was injected by myself consisting of 30 cc of 2% lidocaine plain. Well-padded pneumatic tourniquet was applied to the left ankle. The left lower extremity was then scrubbed, prepped and draped utilizing normal aseptic technique left ankle tourniquet was inflated to 250 mmHg. Attention was directed to the left distal forefoot where hallux amputation site was appreciated. First metatarsal head was directly visualized and appeared to be viable. Devitalized fibular sesamoid and tibial sesamoid which were sharply debrided and passed from the operative field and freed from their soft tissue attachments. Further debridement performed sharply with pickups and a 15 blade of devitalized epidermis, dermis, subcutaneous tissue, muscle and fascia. The incision was then flushed with copious amounts of sterile saline solution. The amputation site and soft tissue flaps were remodeled to be approximated without tension with viable margins and reapproximated with deep fascia and muscle reapproximated with 2-0 Vicryl and skin with 4-0 nylon. The incision site was dressed with Adaptic, sterile 4 x 4's, Kerlix and Sudhir wrap followed by Coban. Tourniquet was deflated and a prompt hyperemic response was noted to the distal digits of the left foot. Digits 2 through 5 that were remaining. Patient was transferred to the PACU with vital signs stable and vascular status intact. Following a period of postop monitoring he will be transferred back to the floor. Patient okay for discharge from podiatry standpoint. He will keep his surgical dressing clean, dry and intact until follow-up visit which will be scheduled in podiatry clinic next week. He will be offloaded with a Visual Pro 360 OrthoWedge postoperative shoe. Recommend discharge on oral antibiotics 14 days based off of sensitivities.
[2022-07-07] MEDS: sodium chloride 0.9% 1,000 ML 30 ML IV (06:37)
--- NOTE | 2022-07-07 06:38 | P.ANESUD_ITS ---
Pre-Anesthetic Update Pre-Anesthetic Assessment: Date of Surgery/Procedure: 07/07/22 Preop Martha gnosis: Osteomyelitis left great toe Proposed Procedure: Operation Date: 07/05/22 12:20 Proposed Procedures p Amputation Transmetatarsal- Left Great Toe Amputation(Left) - Henry Izquierdo DPM Operation Date: 07/07/22 07:00 Proposed Procedures p Primary Delayed Closure Left Foot(Left) - Henry Izquierdo DPM Any changes to Pre-Anesthetic Assessment?: No Last Intake: Intake Last Liquid Date 07/06/22 Last Liquid Time 23:30 Last Solid Date 07/06/22 Last Solid Time 17:00 Labs Last 48hrs: Short CBC 07/06/22 07/07/22 Range/Units 07:11 05:34 WBC 5.9 5.0 (4.0-10.0) 10^3/ uL Hgb 10.2 L 9.9 L (11.7-16.6) g/dL Hct 32.2 L 30.8 L (42.0-52.0) % MCV 92.8 91.9 (80-94) fl Plt Count 262 252 (130-400) 10^3/c mm Neut % (Auto) 66.2 65.0 % Neut # (Auto) 3.90 3.24 (1.8-7.7) 10^3/u L BMP 07/06/22 07/07/22 07:11 05:34 Sodium 131 L 135 L Potassium 5.1 4.5 Chloride 100 104 Carbon Dioxide 22 23 BUN 18 16 Creatinine 0.8 0.9 Glucose 80 86 Calcium 8.4 L 8.4 L Liver Function 07/06/22 07/07/22 Range/Units 07:11 05:34 Total Bilirubin 0.2 0.2 (0.15-1.2) mg/dL AST 19 13 (0-40) U/L ALT 11 10 (0-41) U/L Alkaline Phosphata se 55 58 (40-130) U/L Albumin 2.5 L 2.4 L (3.5-5.2) g/dL Vitals: Temperature 98.3 F 07/07/22 03:26 Temperature Source Oral 07/07/22 03:26 Pulse Rate 59 L 07/07/22 03:26 Pulse Rhythm 07/06/22 19:53 Pulse Strength 3+ Normal 07/06/22 19:53 Respiratory Rate 19 H 07/07/22 03:26 Respiratory Effort 07/06/22 19:53 Respiratory Depth Normal 07/06/22 19:53 Respiratory Patter n 07/06/22 19:53 Blood Pressure 144/80 07/07/22 05:47 Blood Pressure Lela n 101 07/07/22 05:47 Blood Pressure Pos ition Semi Fowlers 07/06/22 04:00 Pulse Oximetry 97 07/07/22 03:26 Oxygen Delivery Me thod 07/06/22 19:24 Oxygen Flow Rate 6 07/05/22 12:43 Exam: Pre-Anes Outpt Exam: alert, oriented x 3, clear to auscultation bilaterally and regular rate & rhythm Cardiac Studies: Echocardiogram 12/24/21 Sestamibi Stress Test (Cardiology) 12/26
[2022-07-07] MEDS: lidocaine 2% INJ 20 mL INJECTION (07:25)
--- NOTE | 2022-07-07 07:38 | PC.NURSE ---
pt arrived to PACU, awake, A&O x3, dressing to left foot C/D/I, left foot cap refill <3 seconds, FOB elevated.
[2022-07-07] MEDS: gabapentin 300 mg Capsule PO (08:56)
[2022-07-07] MEDS: aspirin 81 mg EC Tablet PO (08:56)
[2022-07-07] MEDS: tamsulosin 0.4 mg Capsule PO (08:57)
[2022-07-07] MEDS: polyethylene glycol 3350 Pkt 17 gm PO (08:57)
[2022-07-07] MEDS: metoprolol tartrate 50 mg Tablet PO (08:57)
[2022-07-07] MEDS: isosorbide mononitrate ER 30 mg Tablet PO (08:57)
[2022-07-07] MEDS: pantoprazole DR 40 mg Tablet PO (08:57)
--- NOTE | 2022-07-07 09:43 | PM.DCS ---
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: Status: Acute (2) Wound, open, toe: Status: Acute Qualifiers: Encounter type: initial encounter Qualified Code(s): S91.109A - Unspecified open wound of unspecified toe(s) without damage to nail, initial encounter (3) Cellulitis: Status: Acute Qualifiers: Laterality: left Site of cellulitis: extremity Site of cellulitis of extremity: toe Qualified Code(s): L03.032 - Cellulitis of left toe (4) CAD (coronary artery disease): Status: Acute (5) Congestive heart failure (CHF): Status: Acute Qualifiers: Heart failure chronicity: acute on chronic Heart failure type: combined systolic and diastolic Qualified Code(s): I50.43 - Acute on chronic combined systolic (congestive) and diastolic (congestive) heart failure (6) Positive cardiac stress test: Status: Acute (7) Aortic valve stenosis, moderate: Status: Acute (8) Moderate aortic valve regurgitation: Status: Acute (9) Severe pulmonary hypertension: Status: Acute (10) Peripheral neuropathy: Status: Acute Reason for Visit Reason for Visit: Acute osteomyelitis Hospital Course Hospital Course Rigo Santiago is a 76 year old male with past medical history of CAD, positive stress test, congestive heart failure with known EF of 40 to 45%, moderate aortic stenosis and mild to moderate aortic regurgitation, anemia secondary to GI bleed from gastritis was sent in as a direct admit from podiatry clinic where he presented today for open left wound which started draining along with redness around the skin for the last 3 days which prior to that was red in color for last 1 week.? Patient cannot explain any pain in the leg but he states he is always had decreased sensation in the legs. Apparently patient was in the ER on 07/03 when he was treated for cellulitis with Bactrim and discharged back home.? His blood work done yesterday in the ER showed elevated CRP. Patient has been admitted directly from podiatry clinic with concerns for osteomyelitis follow-up toe amputation planned on 07/05. He was started on empiric antibiotics with vancomycin and Zosyn. He underwent left great toe amputation at the metatarsophalangeal joint on 07/05. Eventually underwent delayed closure on 07/07. He tolerated the procedures well. His wound cultures grew growing Proteus mirabilis and coag positive staph. His hospitalization was otherwise unremarkable. He has been discharged medically stable condition on oral Augmentin and Levaquin for next 14 days along with advised to follow-up with Dr. Izquierdo's office at the earliest onset appointment. Weight bearing as as per Dr. Izquierdo. Physical Exam Narrative: General: No acute distress, AO x3 HEENT: PERRLA, pupils bilaterally equal and reactive Chest: Normal vesicular breath sounds, no added sounds, equal good air entry bilaterally CVS: S1-S2 regular, no murmurs, no tachycardia, no gallops, no rubs Abdomen: Soft, nontender, no organomegaly, bowel sounds present Neuro: No focal deficits, no facial deformity, AO x3, power 5/5 in all limbs Extremities: Surgically bandaged from the podiatry office. Discharge Data Studies Completed and Pending Completed Studies During Hospitalization Category [place] [id number] Routine Ultrasound 07/04/22 17:34 Completed Pending at discharge Category Date Time Status Blood Culture Stat Lab 07/04/22 18:08 Results Pathology: Surgical [PTH] Routine Pth 07/05/22 12:53 Received Radiology Impressions Duplex Scan Lower Extremity Artery 07/04/22 17:34 IMPRESSION: 1. No hemodynamically significant stenosis identified. 2. Monophasic waveforms in the calf arteries and distal superficial femoral arteries is most likely related to hyperemia. Microbiology 07/04/22 18:08 Blood Blood Culture - Preliminary NEGATIVE TO DATE 07/04/22 17:59 Blood Blood Culture - Preliminary NEGATIVE TO DATE 07/04/22 18:35 Nose MRSA Culture - Final 07/04/22 19:00 Urine Kidney Bacterial Antigens - Final 07/04/22 19:00 Unknown Source Legionella Urinary Antigen - Final Gram Stain Final 07/05/22-0913 Result FEW WHITE BLOOD CELLS RARE GRAM POSITIVE COCCI IN PAIRS RARE GRAM NEGATIVE RODS Wound Culture Final 07/06/22-1828 Organism 1 Proteus mirabilis Growth FEW Organism 2 Coag positive Staphylococcus Growth FEW Organism 3 Strep species, gamma-hemolytic Growth FEW FEW MIXED SUPERFICIAL GENE ON DAY 2 P mirabili M.I.C. RX --------- ------ * Amikacin <=16 S * Amoxicillin/Clavulanate <=8/4 S * Ampicillin <=8 S * Ampicillin/Sulbactam <=8/4 S * Aztreonam 16 I * Cefepime <=8 S * Ceftriaxone 2 I * Cefuroxime >16 R * Ciprofloxacin <=1 S * Gentamicin <=2 S * Levofloxacin <=2 S * Tetracycline >8 R * Trimethoprim/Sulfamethoxazole <=2/38 S * Piperacillin/Tazobactam <=16 S Laboratory Results WBC 5.0 10^3/uL (4.0-10.0) 07/07/22 05:34 RBC 3.35 10^6/uL (4.1-5.3) L 07/07/22 05:34 Hgb 9.9 g/dL (11.7-16.6) L 07/07/22 05:34 Hct 30.8 % (42.0-52.0) L 07/07/22 05:34 MCV 91.9 fl (80-94) 07/07/22 05:34 MCH 29.6 pg (28.0-34.0) 07/07/22 05:34 MCHC 32.1 g/dL (30.0-36.0) 07/07/22 05:34 RDW 14.7 % (12.1-15.1) 07/07/22 05:34 Plt Count 252 10^3/cmm (130-400) 07/07/22 05:34 MPV 9.9 fL (7.4-10.4) 07/07/22 05:34 Neut % (Auto) 65.0 % 07/07/22 05:34 Lymph % (Auto) 21.8 % 07/07/22 05:34 [place] % (Auto) 9.8 % 07/07/22 05:34 Eos % (Auto) 2.4 % 07/07/22 05:34 Baso % (Auto) 0.8 % 07/07/22 05:34 Neut # (Auto) 3.24 10^3/uL (1.8-7.7) 07/07/22 05:34 Lymph # (Auto) 1.1 10^3/uL (0.8-4.8) 07/07/22 05:34 [place] # (Auto) 0.5 10^3/uL (0.2-0.9) 07/07/22 05:34 Eos # (Auto) 0.1 10^3/uL (0.0-0.8) 07/07/22 05:34 Baso # (Auto) 0.0 10^3/uL (0.0-0.1) 07/07/22 05:34 Nucleated RBC % (auto) 0 % 07/07/22 05:34 Nucleated RBCs # 0.0 /100WBC 07/07/22 05:34 Sodium 135 mmol/L (136-145) L 07/07/22 05:34 Potassium 4.5 mmol/L (3.5-5.1) 07/07/22 05:34 Chloride 104 mmol/L (98-107) 07/07/22 05:34 Carbon Dioxide 23 mmol/L (22-29) 07/07/22 05:34 Anion Gap 12.5 (5-19) 07/07/22 05:34 BUN 16 mg/dL (8-23) 07/07/22 05:34 Creatinine 0.9 mg/dL (0.7-1.2) 07/07/22 05:34 GFR Calculation Not Reportable 07/07/22 05:34 Glucose 86 mg/dL (65-115) 07/07/22 05:34 Estimat Average Glucose 94 07/05/22 05:25 Hemoglobin A1c 4.9 % (4.0-6.0) 07/05/22 05:25 Calculated Osmolality 280 mOsm/kg (285-295) L 07/07/22 05:34 Lactic Acid 2.7 mmol/L (0.5-2.2) H 07/04/22 21:31 Lactic Acid (Sepsis) 0.9 mmol/L (0.5-2.2) 07/04/22 23:56 Calcium 8.4 mg/dL (8.5-10.5) L 07/07/22 05:34 Phosphorus 2.9 mg/dL (2.5-4.5) 07/05/22 05:25 Magnesium 1.9 mg/dL (1.7-2.3) 07/05/22 05:25 Total Bilirubin 0.2 mg/dL (0.15-1.2) 07/07/22 05:34 AST 13 U/L (0-40) 07/07/22 05:34 ALT 10 U/L (0-41) 07/07/22 05:34 Alkaline Phosphatase 58 U/L (40-130) 07/07/22 05:34 Total Protein 5.9 g/dL (6.6-8.7) L 07/07/22 05:34 Albumin 2.4 g/dL (3.5-5.2) L 07/07/22 05:34 Globulin 3.5 g/dL (1.3-4.6) 07/07/22 05:34 Procalcitonin 0.12 ng/mL (0-0.5) 07/04/22 17:59 Urine Color Yellow (Yellow) 07/04/22 19:00 Urine Appearance Clear (CLEAR) 07/04/22 19:00 Urine pH 6.5 (5-7) 07/04/22 19:00 Ur Specific [place] 1.010 (1.005-1.030) 07/04/22 19:00 Urine Protein Neg (Negative) 07/04/22 19:00 Urine Glucose (UA) Norm (Normal) 07/04/22 19:00 Urine Ketones Negative (Negative) 07/04/22 19:00 Urine Blood Neg (Negative) 07/04/22 19:00 Urine Nitrate Negative (Negative) 07/04/22 19:00 Urine Bilirubin Neg (Negative) 07/04/22 19:00 Urine Urobilinogen Norm mg/dL (Negative) 07/04/22 19:00 Ur Leukocyte Esterase Negative (Negative) 07/04/22 19:00 Vancomycin Trough 18.1 ug/mL (10-15) H 07/06/22 07:11 Vitals Last Vital Signs Temp 98.0 F 07/07/22 07:53 Pulse 67 07/07/22 09:37 Resp 16 07/07/22 09:37 BP 111/70 07/07/22 07:53 Pulse Ox 100 07/07/22 09:37 O2 Del Method 07/07/22 09:37 O2 Flow Rate 6 07/05/22 12:43 Discharge Plan Discharge Patient Disposition: Home Health Service Condition: Stable Prescriptions: New Augmentin XR 1,000-62.5 mg tablet extended release 12 hr 1 tab PO BID 14 Days Qty: 28 0RF levofloxacin 500 mg tablet 500 mg PO DAILY 14 Days Qty: 14 0RF Continued (DME) Diabetic Shoes See Rx Instructions .ROUTE .MEDSUPPLY Qty: 1 0RF Rx Instructions: As directed Ori (honey) 100 % paste 1 applic topical BID Qty: 103 2RF Eliquis 5 mg tablet 5 mg PO BID Qty: 60 5RF Rx Instructions: for anticoagulation atorvastatin 40 mg tablet 40 mg PO BEDTIME Qty: 90 3RF furosemide 40 mg tablet 40 mg PO DAILY@0800 Qty: 30 5RF gabapentin 300 mg capsule 300 mg PO TID 90 Days Qty: 270 1RF isosorbide mononitrate 30 mg tablet extended release 24 hr 30 mg PO DAILY 90 Days Qty: 90 1RF lisinopril 20 mg tablet 20 mg PO DAILY Qty: 90 1RF Hold Instructions: Doctor's Order loratadine [Allergy Relief (loratadine)] 10 mg tablet 10 mg PO DAILY 90 Days Qty: 90 1RF metoprolol tartrate 50 mg tablet 50 mg PO BID Qty: 180 1RF polyethylene glycol 3350 [Miralax] 17 gram/dose powder 17 g PO BID Qty: 510 5RF tamsulosin [Flomax] 0.4 mg capsule 0.4 mg PO DAILY 90 Days Qty: 90 1RF tizanidine 4 mg tablet 4 mg PO TID PRN (Reason: muscle spasticity) 90 Days Qty: 270 1RF Adult Aspirin Regimen 81 mg tablet,delayed release (DR/EC) 81 mg PO DAILY Qty: 90 3RF ferrous gluconate 324 mg (37.5 mg iron) tablet 324 mg PO BIDWM Qty: 60 3RF sodium chloride 1,000 mg tablet,soluble See Rx Instructions .ROUTE .COMPLEX Qty: 90 1RF Dose Instruction: TAKE ONE TABLET BY MOUTH EVERY DAY Rx Instructions: TAKE ONE TABLET BY MOUTH EVERY DAY hydrocodone-acetaminophen 5-325 mg tablet 1 tab PO Q4H MDD 3 tabs per day PRN (Reason: pain) 30 Days Qty: 90 0RF (DME) OrthoWedge heel Dar[place] shoe for left foot See Rx Instructions .Route .MEDSUPPLY Qty: 1 0RF Rx Instructions: As directed [employer]- approximate men's 11 shoe size with a slender foot, He is in room 279-1, anytime today would be fine. mupirocin 2 % ointment 1 applic topical BID Qty: 22 0RF Discontinued sulfamethoxazole-trimethoprim 800-160 mg tablet 1 tab PO BID 10 Days Qty: 20 0RF Discharge Orders: Discharge Order (Routine); Ordered 07/07/22 Ordered By: Parag Gutierrez [place] [facility] [place] [facility] [place] [Outside] Henry Izquierdo DPM [Physician] - 07/12/22 10:30 am Parker Ashby DO [Primary Care Provider] - 07/14/22 9:40 am ([facility] appointment [facility] be at the [facility] ) Patient Instructions: Amoxicillin/Clavulanate Potassium (By mouth), Levofloxacin (By mouth), Toe Amputation (GEN), Opioid Safety Activity Restrictions/Additional Instructions: Please maintain nonweightbearing to operative foot. You may be heel touch while transferring, please where shoe provided while transferring. Maintain surgical dressing until follow up appointment with Dr. Izquierdo. Discharge Attestations Time Spent in Discharge Care*: greater than 30 min Specific Discharge Activities: educating patient, educating and/or supporting family/caregiver, discussing with pcp/other providers, discussing with family independence case manager/social workers/dc planners, documenting/other paperwork and evaluating patient/reviewing data Status at Discharge: Cognitive status at discharge: cognitively intact, Behavioral status at discharge: cooperative, Functional status at discharge: uses cane/walker, Overall status at discharge: patient is progressing back to baseline Quality Metrics Clinical Quality Measures [ No reported AMI, CVA or VTE this stay] Coding Level of Care Code 12087 Total time (in minutes) for Discharge: 50 Diagnoses 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
--- NOTE | 2022-07-07 14:08 | PC.SOCIAL ---
Pg 2 IMM Explained to pt Pg 2 IMM. No questions voiced. Provided pt a copy. Initialed, dated, & timed copy in chart.
== END 2022-07-07 15:00 | disposition home health service (06) | DRG 500 ==
PROVIDERS: Podiatrist Foot & Ankle Surgery; Admitting Provider Student in an Organized Health Care Education/Training Program; PCP Family Medicine; Visit Provider Student in an Organized Health Care Education/Training Program
PROC: 0Y6Q0Z0 Detachment at Left 1st Toe, Complete, Open Approach (ICD-10-PCS; CPT 28805; principal; 2022-07-05 12:00)
PROC: 0QDP0ZZ Extraction of Left Metatarsal, Open Approach (ICD-10-PCS; CPT 13160; principal; 2022-07-07 07:00)
DX: M86.172 Other acute osteomyelitis, left ankle and foot (principal); I50.43 Acute on chronic combined systolic (congestive) and diastolic (congestive) heart failure; L97.524 Non-pressure chronic ulcer of other part of left foot with necrosis of bone; L03.032 Cellulitis of left toe; I11.0 Hypertensive heart disease with heart failure; I25.10 Atherosclerotic heart disease of native coronary artery without angina pectoris; B95.7 Other staphylococcus as the cause of diseases classified elsewhere; B96.4 Proteus (mirabilis) (morganii) as the cause of diseases classified elsewhere; I35.0 Nonrheumatic aortic (valve) stenosis; I35.1 Nonrheumatic aortic (valve) insufficiency; I27.20 Pulmonary hypertension, unspecified; G62.9 Polyneuropathy, unspecified; R94.39 Abnormal result of other cardiovascular function study; Z91.199 Patient's noncompliance with other medical treatment and regimen due to unspecified reason; Z79.01 Long term (current) use of anticoagulants; Z79.899 Other long term (current) drug therapy; Z79.82 Long term (current) use of aspirin; Z79.891 Long term (current) use of opiate analgesic
CPT/HCPCS: 36415; 73630; 80053; 80202; 81003; 83036; 83605; 83735; 84100; 84145; 85025; 86140; 86403; 87040; 87070; 87075; 87077; 87186; 87205; 87449; 87641; 88305; 88311; 93005; 93925; 94664; 96365; 96366; 99214; 99284; J2270; J2405; J2543; J2704; J3010; J3370; J3490; J7030; J7050

== ENCOUNTER → 2022-07-12 10:31 | Outpatient (BNVA) | payer MEDICARE, MEDICAID, SELFPAY | PROVIDERS: PCP Family Medicine; Visit Provider Podiatrist Foot & Ankle Surgery | DX: L03.032 Cellulitis of left toe (principal); G62.89 Other specified polyneuropathies; L97.524 Non-pressure chronic ulcer of other part of left foot with necrosis of bone; Z89.412 Acquired absence of left great toe | CPT/HCPCS: 99214 ==

== ENCOUNTER → 2022-07-26 14:15 | Outpatient (BNVA) | payer MEDICARE, MEDICAID, SELFPAY | PROVIDERS: PCP Family Medicine; Visit Provider Podiatrist Foot & Ankle Surgery | DX: Z89.412 Acquired absence of left great toe (principal); G62.89 Other specified polyneuropathies; L97.524 Non-pressure chronic ulcer of other part of left foot with necrosis of bone; L97.522 Non-pressure chronic ulcer of other part of left foot with fat layer exposed | CPT/HCPCS: 11042 ==

== ENCOUNTER → 2022-08-03 15:41 | Outpatient (BNVA) | payer MEDICARE, MEDICAID, SELFPAY | PROVIDERS: PCP Family Medicine; Visit Provider Podiatrist Foot & Ankle Surgery | DX: G62.89 Other specified polyneuropathies (principal); L97.524 Non-pressure chronic ulcer of other part of left foot with necrosis of bone; L97.522 Non-pressure chronic ulcer of other part of left foot with fat layer exposed; Z89.412 Acquired absence of left great toe | CPT/HCPCS: 99213 ==

== ENCOUNTER → 2023-03-19 10:59 | Outpatient (BNVA) | payer MEDICARE, MEDICAID, SELFPAY | PROVIDERS: PCP Family Medicine; Visit Provider Family Medicine | DX: Z13.6 Encounter for screening for cardiovascular disorders (principal); E87.1 Hypo-osmolality and hyponatremia; M25.50 Pain in unspecified joint; M19.90 Unspecified osteoarthritis, unspecified site; D64.9 Anemia, unspecified; I25.10 Atherosclerotic heart disease of native coronary artery without angina pectoris | CPT/HCPCS: 80053; 80061; 85025 ==

== ENCOUNTER → 2023-10-09 08:41 | Outpatient (BNVA) | payer OTHER, MEDICAID, SELFPAY | PROVIDERS: PCP Family Medicine; Visit Provider Family Medicine | DX: Z13.6 Encounter for screening for cardiovascular disorders (principal); I50.9 Heart failure, unspecified; I42.9 Cardiomyopathy, unspecified; E78.5 Hyperlipidemia, unspecified; E87.1 Hypo-osmolality and hyponatremia; G62.89 Other specified polyneuropathies; D64.9 Anemia, unspecified; M25.50 Pain in unspecified joint; M19.90 Unspecified osteoarthritis, unspecified site | CPT/HCPCS: 80053; 80061; 85025 ==

== ENCOUNTER 2024-01-13 15:55 | Emergency (ER) | payer MEDICARE, MEDICAID, SELFPAY ==
[2024-01-13] VITALS (14 sets, daily range): BP systolic 179–205; BP diastolic 95–121; PULSE 64–84; RESP 14–22; TEMP 36.6; O2SAT 86–99
--- NOTE | 2024-01-13 16:02 | ECG_ITS ---
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 Measurements Intervals [place] Rate: 72 P: 12 AR: 149 QRS: 30 QRSD: 102 T: 37 QT: 382 QTc: 419 Interpretive Statements SINUS RHYTHM WITH OCCASIONAL VENTRICULAR PREMATURE COMPLEXES Compared to ECG 07/04/2022 18:34:13 Ventricular premature complex(es) now present Electronically Signed On 01-13-2024 17:43:33 CDT by Tom Woods M.D. [email or web address]
--- NOTE | 2024-01-13 16:05 | CTR_ITS ---
PROCEDURE INFORMATION: Exam: CT Head Without Contrast Exam date and time: 01/13/2024 3:55 PM Age: 78 years old Clinical indication: Stroke-like symptoms; Speech disturbance; Lt lower extremity weakness; Additional info: Left sided weakness TECHNIQUE: Imaging protocol: Computed tomography of the head without contrast. Radiation optimization: All CT scans at this facility use at least one of these dose optimization techniques: automated exposure control; mA and/or kV adjustment per patient size (includes targeted exams where dose is matched to clinical indication); or iterative reconstruction. Other technique: STROKE PROTOCOL was implemented. COMPARISON: No relevant prior studies available. RADIATION DOSE METRICS: Total DLP (mGy-cm): 1152.78 FINDINGS: Brain: There is a right frontal lobe intraparenchymal hematoma measuring 3.2 x 2.5 cm with surrounding vasogenic edema. No midline shift. No large territorial infarct. No significant mass effect. Cerebral ventricles: No ventriculomegaly. Paranasal sinuses: Frothy secretions in the left sphenoid sinus. Mastoid air cells: Visualized mastoid air cells are well aerated. Bones: Unremarkable. No acute fracture. Soft tissues: Unremarkable. CT/CT head thrombolytic [id number] IMPRESSION: Right frontal lobe intraparenchymal hematoma with surrounding mild vasogenic edema. Underlying lesion is not totally excluded. No midline shift or uncal herniation. ASSESSMENT: ASPECTS ([place] Stroke Program Early CT Score) is 10.
[2024-01-13 16:06] LABS: Glucose Point of Care 75 mg/dL (70-110)
--- NOTE | 2024-01-13 16:06 | ED_ITS ---
HPI - Neuro Symptoms/Deficit General: Chief Complaint: Weakness Stated Complaint: left sided weakness Time Seen by Provider: 01/13/24 16:05 Source: patient and EMS Mode of arrival: EMS History of Present Illness: Presents code stroke by EMS with complaints of left-sided weakness. Patient's last known well was sometime yesterday. Friends tried calling him today at 2 PM and said he sounded funny then they went by his house at 3 PM and said he was definitely slurring his words not making whole lot of sense and acting like his left side was weak. Patient cannot give us a whole lot of information other than he just feels bad. Currently patient can follow most commands, cannot repeat sentences that we have to tell him. He is having a hard time finding his words. Has mild left facial droop Onset (ago): unknown Location: speech and left leg Related Data Previous Rx's Medication Instructions Recorded Diabetic Shoes #1 ea 12/11/19 mupirocin 2 % topical ointment 1 applic topical BID #22 grams 04/19/22 aspirin 81 mg tablet,delayed 81 mg PO DAILY #90 tabs 05/09/22 release (Adult Aspirin Regimen) honey 100 % topical paste 1 applic topical BID #103 mL 06/23/22 (MediHoney (honey)) OrthoWedge heel Darco shoe for #1 ea 07/06/22 left foot loratadine 10 mg tablet (Allergy 10 mg PO DAILY 90 days #90 tabs 07/12/22 Relief (loratadine)) oxycodone-acetaminophen 7.5 mg-325 1 tab PO Q4H PRN pain 7 days #28 07/12/22 mg tablet (Percocet) tabs polyethylene glycol 3350 17 17 g PO BID #510 grams 07/12/22 gram/dose oral powder (Miralax) ferrous gluconate 324 mg (37.5 mg 324 mg PO BIDWM #60 tabs 08/07/22 iron) tablet sodium chloride 1,000 mg soluble See Rx Instructions .Route 11/03/22 tablet .COMPLEX #90 tabs apixaban 5 mg tablet (Eliquis) 5 mg PO BID #180 tabs 05/03/23 furosemide 40 mg tablet 40 mg PO DAILY@0800 #90 tabs 05/03/23 gabapentin 300 mg capsule 300 mg PO TID 90 days #270 caps 05/03/23 isosorbide mononitrate 30 mg 30 mg PO DAILY 90 days #90 tabs 05/03/23 tablet,extended release 24 hr lisinopril 20 mg tablet 20 mg PO DAILY #90 tabs 05/03/23 metoprolol tartrate 50 mg tablet 50 mg PO BID #180 tabs 05/03/23 tamsulosin 0.4 mg capsule (Flomax) 0.4 mg PO DAILY 90 days #90 caps 05/03/23 tizanidine 4 mg tablet 4 mg PO TID PRN muscle spasticity 05/03/23 90 days #270 tabs pantoprazole 40 mg tablet,delayed 40 mg PO DAILY stomach #90 tabs 06/07/23 release atorvastatin 40 mg tablet 40 mg PO BEDTIME #90 tabs 10/25/23 meloxicam 15 mg tablet 15 mg PO DAILY arthritis #30 tabs 10/25/23 hydrocodone 5 mg-acetaminophen 325 1 tab PO Q4H PRN pain 1 month #90 01/03/24 mg tablet tabs Allergies Allergy/AdvReac Type Severity Reaction Status Date / Time adhesive tape Allergy Unknown Unknown Verified 01/13/24 16:10 magnesium oxide Allergy Unknown Verified 01/13/24 16:10 quinidine Allergy Unknown Verified 01/13/24 16:10 thioridazine [From Mellaril] Allergy Unknown Verified 01/13/24 16:10 Review of Systems General: Reports: 10 or more systems reviewed and unremarkable except in HPI and below PFSH ED PFSH: Medical History Positive cardiac stress test CAD (coronary artery disease) Severe pulmonary hypertension Moderate aortic valve regurgitation Aortic valve stenosis, moderate Congestive heart failure (CHF) Left leg DVT EtOH dependence Osteoarthritis of left knee Polyarticular arthritis Polymyalgia Chronic ulcer of left foot with fat layer exposed CAD (coronary artery disease) DJD (degenerative joint disease) Psoriasis Hammer toe Dyslipidemia Essential hypertension GERD (gastroesophageal reflux disease) Neuropathy Surgical History 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 Family History Father Dementia Mother Cancer BRAIN TUMOR Social History Smoking and tobacco/nicotine status: current every day tobacco/nicotine user Second hand smoke exposure: Yes Alcohol intake: unknown Substance/Drug Use: unknown Adopted: No Caregiver/support person: No Lives independently: Yes Household members: none Housing: House Marital status: / Number of children: 0 service: Yes branch: [employer] Current occupational status: retired Pets and animals: Yes Do you think of yourself as: Straight/Heterosexual Current gender identity: Male NIH stroke score NIHSS: Level Of Consciousness - 1a: 0 Level Of Consciousness Questions - 1b: Both Correct Level Of Consciousness Commands - 1c: Both Correct Best Gaze - 2: Normal Visual Garr[place] - 3: No Visual Loss Facial Palsy - 4: Minor Paralysis Motor Arm Right - 5: No Drift Motor Arm Left - 5: No Drift Motor Leg Right - 6: No Drift Motor Leg Left - 6: No Drift Limb Ataxia - 7: Absent Sensory - 8: Normal Best Language - 9: Mild/Moderate Aphasia Dysarthia - 10: Mild/Moderate Dysarthia Extinction And Inattention - 11: 0 Score: Total Score: 3 Physical Exam Const: COMMON NORMALS: no acute distress, average body habitus, patient oriented x3, no limitations, healthy appearing, alert and well nourished HENMT: COMMON NORMALS: normocephalic, atraumatic, hearing grossly normal bilaterally, external ears normal, Normal external nose present and moist oral mucous membranes HEAD & SCALP: normocephalic and atraumatic NOSE: Normal external nose present EXTERNAL EAR: Yes external ears normal Eye: COMMON NORMALS: Equal, round and reactive pupils present, EOMs intact bilaterally, conjunctivae normal and no scleral icterus CONJUNCTIVA: Yes conjunctivae normal PUPIL: Yes Equal, round and reactive pupils present Neck/C-Spine: COMMON NORMALS: full ROM, no lymphadenopathy, supple, no meningeal signs, no JVD and Thyroid normal THYROID: Thyroid normal Chest: COMMONS NORMALS: normal inspection of the chest and normal palpation of entire chest wall Resp: COMMON NORMALS: normal respiratory effort, No retractions, No use of accessory muscles and clear to auscultation bilaterally AUSCULTATION: clear to auscultation bilaterally Cardio: COMMON NORMALS: no JVD, regular rate, regular rhythm, S1 normal heart sound present, S2 normal heart sound present, No gallops present (Cardio), No clicks present (Cardio), No murmurs present (Cardio) and No rub (Cardio) RATE: regular rate RHYTHM: regular rhythm HEART SOUNDS: S1 normal heart sound present and S2 normal heart sound present GI: COMMON NORMALS: Normal to inspection, nondistended, normoactive bowel sounds present, Soft to palpation, non-tender, No hepatosplenomegaly present and no masses PALPATION: Yes Soft to palpation and Yes No hepatosplenomegaly present Neuro: COMMON NORMALS: patient oriented x3 SENSORIUM/ORIENTATION: Yes alert MENINGEAL SIGNS: Yes no meningeal signs Course Vital Signs: Vital signs: Vital Signs Temperature 97.8 F 01/13/24 16:03 Pulse Rate 76 01/13/24 16:03 Blood Pressure 179/109 01/13/24 16:03 Pulse Oximetry 98 01/13/24 16:03 Oxygen Delivery Me thod Room Air 01/13/24 16:03 MDM - Neuro Symptoms/Deficit Medical Decision Making Code stroke was called, when patient presented to the ER he was immediately taken to CT where had noncontrasted stroke that showed a right hemorrhagic bleed. Adela was called talk to Dr. Dr. Menezes in the ER who accepted the patient in transfer, Differential Diagnosis Likely subarachnoid hemorrhage and cerebrovascular accident Medical Records I reviewed the patient's medical records. Lab Data I reviewed the patient's lab results. Radiology Impressions Head CT 01/13/24 16:05 IMPRESSION: Right frontal lobe intraparenchymal hematoma with surrounding mild vasogenic edema. Underlying lesion is not totally excluded. No midline shift or uncal herniation. ASSESSMENT: ASPECTS ([place] Stroke Program Early CT Score) is 10. Chest X-Ray 01/13/24 16:07 IMPRESSION: No acute cardiopulmonary process. Laboratory Results POC Glucose 75 mg/dL (70-110) 01/13/24 16:02 All radiology interpretation(s) finalized by discharge Discharge Plan Discharge Patient Disposition: Xfer Short-Term Hosp Clinical Impression: Hemorrhagic stroke, Chronic anticoagulation Condition: Stable Referrals: Parker Ashby DO [Primary Care Provider] - Coding Level of Care Code ED Deli Department Manager for Debra Monroe
--- NOTE | 2024-01-13 16:07 | XRR_ITS ---
PROCEDURE INFORMATION: Exam: XR Chest Exam date and time: 01/13/2024 4:15 PM Age: 78 years old Clinical indication: Other: Left side weakness; Additional info: Neuro deficit TECHNIQUE: Imaging protocol: Radiologic exam of the chest. Views: 1 view. COMPARISON: CT angio chest PE protcl [id number] 12/23/2021 3:18 PM FINDINGS: Lungs: Unremarkable. No consolidation. Pleural spaces: Unremarkable. No pleural effusion. No pneumothorax. Heart/Mediastinum: Unremarkable. No cardiomegaly. Vasculature: Unfolding of the thoracic aorta. Bones/joints: Left shoulder arthroplasty. Mild degenerative disease of bilateral acromioclavicular joints. Severe degenerative disease of the right glenohumeral joint. XR/XR chest 1V portable [id number] IMPRESSION: No acute cardiopulmonary process.
[2024-01-13 16:38] LABS: Basophils % 0.9 %; Eosinophils % 0.7 %; Hematocrit 43.5 % (37-53); Lymphocytes # 1.1 10^3/uL (0.8-4.8); Lymphocytes % 25.2 %; Mean Corpuscular HGB Conc 34.7 g/dL (30-55); Mean Corpuscular Hemoglobin 30.8 pg (27-33); Mean Corpuscular Volume 88.6 fl (82-101); Mean Platelet Volume 10.1 fL (7.4-10.4); Monocytes # 0.5 10^3/uL (0.2-0.9); Monocytes % 11.3 %; Neutrophils # 2.72 10^3/uL (1.8-7.7); Neutrophils % 61.7 %; Nucleated Red Blood Cells % 0 %; Platelet Count 174 10^3/cmm (157-399); Red Blood Count 4.91 10^6/uL (3.85-5.65); White Blood Count 4.41 10^3/uL (3.29-11.43)
[2024-01-13] MEDS: labetalol 5 mg/mL SDV 20mL 10 MG IVP (16:44)
[2024-01-13 16:51] LABS: INR 0.92 (0.8-1.2)
[2024-01-13 16:52] LABS: Partial Thromboplastin Time 27.6 SECONDS (23.9-36.7)
[2024-01-13 17:11] LABS: Alanine Aminotransferase 12 U/L (0-41); Albumin Level 4.2 g/dL (3.5-5.2); Alkaline Phosphatase 81 U/L (40-130); Anion Gap 15.9 (5-19); Aspartate Amino Transferase 16 U/L (0-40); Blood Urea Nitrogen 17 mg/dL (8-23); Calcium 9.6 mg/dL (8.5-10.5); Carbon Dioxide 25 mmol/L (22-29); Chloride 97 mmol/L (98-107); Globulin 3.2 g/dL (1.3-4.6); Glucose 83 mg/dL (65-115); Osmolality Calculated 277 mOsm/kg (285-295); Potassium 4.9 mmol/L (3.5-5.1); Sodium 133 mmol/L (136-145); Thyroid Stimulating Hormone 1.47 uIU/mL (0.27-4.20); Total Bilirubin 0.6 mg/dL (0.15-1.2); Total Protein 7.4 g/dL (6.6-8.7)
[2024-01-13 17:37] LABS: Alcohol Level < 10 mg/dL (0-10)
== END 2024-01-13 17:01 | disposition short-term general hospital (02) ==
PROVIDERS: Emergency Provider Emergency Medicine; PCP Family Medicine
DX: I62.9 Nontraumatic intracranial hemorrhage, unspecified (principal); Z79.01 Long term (current) use of anticoagulants; Z72.0 Tobacco use; I25.10 Atherosclerotic heart disease of native coronary artery without angina pectoris; I11.0 Hypertensive heart disease with heart failure; I50.9 Heart failure, unspecified; E78.5 Hyperlipidemia, unspecified
CPT/HCPCS: 36415; 36416; 70450; 71045; 80053; 80307; 82962; 83735; 84443; 85025; 85610; 85730; 86140; 93005; 96374; 99285; 99291; J3490

== ENCOUNTER → 2024-06-06 11:10 | Outpatient (BNVA) | payer MEDICARE, MEDICAID, SELFPAY | PROVIDERS: PCP Family Medicine; Visit Provider Family Medicine | DX: I42.9 Cardiomyopathy, unspecified (principal); I25.10 Atherosclerotic heart disease of native coronary artery without angina pectoris; R00.2 Palpitations; E78.5 Hyperlipidemia, unspecified; E87.1 Hypo-osmolality and hyponatremia; D64.9 Anemia, unspecified; G62.89 Other specified polyneuropathies; Z13.6 Encounter for screening for cardiovascular disorders; E03.9 Hypothyroidism, unspecified | CPT/HCPCS: 80053; 80061; 83036; 83735; 84443; 85025 ==

== ENCOUNTER 2025-02-12 22:25 | Emergency (ER) | payer MEDICARE, MEDICAID, SELFPAY ==
[2025-02-12 22:29] VITALS: BP 139/100; PULSE 82; RESP 16; TEMP 37.1; O2SAT 95; BMI 20.3
--- NOTE | 2025-02-12 22:36 | W.ED.SKABFB ---
HPI - Skin/Abscess/Foreign Bdy General: Chief complaint: Skin/Abscess/Foreign Body Stated complaint: Staph on Back Time Seen by Provider: 02/12/25 22:30 Source: patient Mode of arrival: ambulatory Limitations: no limitations History of Present Illness: 79-year-old male states that he has had an abscess to his back over the last few days states that he had some purulent drainage from it states very painful to touch she rates his pain a 3 out of 10 currently he denies any worse or improving factors denies any fevers denies any vomiting Related Data Previous Rx's ?Medication ?Instructions ?Recorded Diabetic Shoes #1 ea 12/11/19 mupirocin 2 % topical ointment 1 applic topical BID #22 grams 04/19/22 aspirin 81 mg tablet,delayed 81 mg PO DAILY #90 tabs 05/09/22 release (Adult Aspirin Regimen) honey 100 % topical paste 1 applic topical BID #103 mL 06/23/22 (MediHoney (honey)) OrthoWedge heel Darco shoe for #1 ea 07/06/22 left foot loratadine 10 mg tablet (Allergy 10 mg PO DAILY 90 days #90 tabs 07/12/22 Relief (loratadine)) polyethylene glycol 3350 17 17 g PO BID #510 grams 07/12/22 gram/dose oral powder (Miralax) ferrous gluconate 324 mg (37.5 mg 324 mg PO BIDWM #60 tabs 08/07/22 iron) tablet sodium chloride 1,000 mg soluble See Rx Instructions .Route 11/03/22 tablet .COMPLEX #90 tabs meloxicam 15 mg tablet 15 mg PO DAILY arthritis #30 tabs 10/25/23 Held on 02/07/24. Instructions: Guidelines apixaban 5 mg tablet (Eliquis) 5 mg PO BID #180 tabs 04/18/24 Held on 07/01/24. Instructions: Doctor's Order furosemide 40 mg tablet 40 mg PO DAILY@0800 #90 tabs 04/18/24 isosorbide mononitrate 30 mg 30 mg PO DAILY 90 days #90 tabs 04/18/24 tablet,extended release 24 hr lisinopril 20 mg tablet 20 mg PO DAILY #90 tabs 04/18/24 metoprolol tartrate 50 mg tablet 50 mg PO BID #180 tabs 04/18/24 pantoprazole 40 mg tablet,delayed 40 mg PO DAILY stomach #90 tabs 04/18/24 release tamsulosin 0.4 mg capsule (Flomax) 0.4 mg PO DAILY 90 days #90 caps 04/18/24 tizanidine 4 mg tablet 4 mg PO TID PRN muscle spasticity 04/18/24 90 days #270 tabs metronidazole 250 mg tablet 250 mg PO DAILY #30 tabs 06/06/24 doxycycline monohydrate 100 mg 100 mg PO BID #14 tabs 07/01/24 tablet amoxicillin 875 mg-potassium 1 tab PO BID ear infection #20 tabs 08/11/24 clavulanate 125 mg tablet atorvastatin 40 mg tablet 40 mg PO BEDTIME #90 tabs 01/05/25 hydrocodone 7.5 mg-acetaminophen 1 tab PO Q4H PRN pain 30 days #180 01/05/25 325 mg tablet tabs amlodipine 5 mg tablet 5 mg PO DAILY #90 tabs 01/08/25 acyclovir 800 mg tablet 800 mg PO .five times per day 7 01/21/25 days #35 tabs prednisone 10 mg tablet 10 mg PO DAILY #7 tabs 01/21/25 sulfamethoxazole 800 1 tab PO BID 10 days #20 tabs 02/12/25 mg-trimethoprim 160 mg tablet (Bactrim DS) Allergies Allergy/AdvReac Type Severity Reaction Status Date / Time adhesive tape Allergy Unknown Unknown Verified 01/27/25 10:13 magnesium oxide Allergy Unknown Verified 01/27/25 10:13 quinidine Allergy Unknown Verified 01/27/25 10:13 thioridazine (From Mellaril) Allergy Unknown Verified 01/27/25 10:13 Review of Systems Skin/Breast: Reports: erythema PFSH ED PFSH: Medical History Positive cardiac stress test CAD (coronary artery disease) Severe pulmonary hypertension Moderate aortic valve regurgitation Aortic valve stenosis, moderate Congestive heart failure (CHF) Left leg DVT EtOH dependence Osteoarthritis of left knee Polyarticular arthritis Polymyalgia Chronic ulcer of left foot with fat layer exposed CAD (coronary artery disease) DJD (degenerative joint disease) Psoriasis Hammer toe Dyslipidemia Essential hypertension GERD (gastroesophageal reflux disease) Neuropathy Surgical History 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 Family History Father Dementia Mother Cancer BRAIN TUMOR Social History Smoking and tobacco/nicotine status: current every day tobacco/nicotine user Second hand smoke exposure: Yes Alcohol intake: unknown Substance/Drug Use: unknown Adopted: No Caregiver/support person: No Lives independently: Yes Household members: none Housing: House Marital status: / Number of children: 0 service: Yes branch: [employer] Current occupational status: retired Pets and animals: Yes Do you think of yourself as: Straight/Heterosexual Current gender identity: Male Physical Exam Const: COMMON NORMALS: no acute distress, patient oriented x3 and healthy appearing HENMT: COMMON NORMALS: normocephalic and atraumatic HEAD & SCALP: normocephalic and atraumatic Eye: COMMON NORMALS: conjunctivae normal CONJUNCTIVA: Yes conjunctivae normal Neck/C-Spine: COMMON NORMALS: full ROM Chest: COMMONS NORMALS: normal inspection of the chest Resp: COMMON NORMALS: normal respiratory effort Cardio: COMMON NORMALS: regular rate RATE: regular rate Extremity: COMMON NORMALS: normal to inspection and full ROM Neuro: COMMON NORMALS: patient oriented x3, moves all extremities and no focal motor deficits Psych: COMMON NORMALS: mental status grossly normal, Normal thought process present and cooperative THOUGHT PROCESS: Normal thought process present Skin: NARRATIVE SKIN EXAM: 3 cm abscess to upper back Procedures Abscess I/D Site: back Local Anesthetic: lidocaine 1% Amount of anesthesia used (mL): 10 Technique: incised with #11 blade Irrigation: No Packing used?: none Course Vital Signs: Vital signs: Vital Signs Temperature 98.7 F 02/12/25 22:29 Pulse Rate 82 02/12/25 22:29 Respiratory Rate 16 02/12/25 22:29 Blood Pressure 139/100 02/12/25 22:29 Pulse Oximetry 95 02/12/25 22:29 Oxygen Delivery Me thod Room Air 02/12/25 22:29 MDM - Skin/Abscess/Foreign Bdy Medicial Decision Making Patient presents for lab test to his upper back he has no signs of severe cellulitis did incised and drained the abscess we will place him on Bactrim he is afebrile here vitals are normal informed him to return if worsening follow-up with PCP in 4 to 5 days he understands and agrees to plan. Medical Records I reviewed the patient's medical records. No radiology studies performed this visit Discharge Plan Discharge Patient Disposition: Home Clinical Impression: Abscess of skin or subcutaneous tissue Condition: Stable Prescriptions: New sulfamethoxazole-trimethoprim [Bactrim DS] 800-160 mg tablet 1 tab PO BID 10 Days Qty: 20 0RF No Action (DME) Diabetic Shoes See Rx Instructions .ROUTE .MEDSUPPLY Qty: 1 0RF Rx Instructions: As directed doxycycline monohydrate 100 mg tablet 100 mg PO BID Qty: 14 0RF amoxicillin-pot clavulanate 875-125 mg tablet 1 tab PO BID Qty: 20 0RF prednisone 10 mg tablet 10 mg PO DAILY Qty: 7 0RF acyclovir 800 mg tablet 800 mg PO .five times per day 7 Days Qty: 35 0RF Rx Instructions: while awake; give 5 doses in 24 hours MediHoney (honey) 100 % paste 1 applic topical BID Qty: 103 2RF metronidazole 250 mg tablet 250 mg PO DAILY Qty: 30 0RF Rx Instructions: crush one tab and place in chronic foot wound. Adult Aspirin Regimen 81 mg tablet,delayed release (DR/EC) 81 mg PO DAILY Qty: 90 3RF (DME) OrthoWedge heel Darco shoe for left foot See Rx Instructions .Route .MEDSUPPLY Qty: 1 0RF Rx Instructions: As directed [employer]- approximate men's 11 shoe size with a slender foot, He is in room 279-1, anytime today would be fine. loratadine [Allergy Relief (loratadine)] 10 mg tablet 10 mg PO DAILY 90 Days Qty: 90 1RF polyethylene glycol 3350 [Miralax] 17 gram/dose powder 17 g PO BID Qty: 510 5RF ferrous gluconate 324 mg (37.5 mg iron) tablet 324 mg PO BIDWM Qty: 60 3RF sodium chloride 1,000 mg tablet,soluble See Rx Instructions .ROUTE .COMPLEX Qty: 90 1RF Dose Instruction: TAKE ONE TABLET BY MOUTH EVERY DAY Rx Instructions: TAKE ONE TABLET BY MOUTH EVERY DAY meloxicam 15 mg tablet 15 mg PO DAILY Qty: 30 5RF Eliquis 5 mg tablet 5 mg PO BID Qty: 180 3RF Rx Instructions: for anticoagulation furosemide 40 mg tablet 40 mg PO DAILY@0800 Qty: 90 3RF isosorbide mononitrate 30 mg tablet extended release 24 hr 30 mg PO DAILY 90 Days Qty: 90 3RF lisinopril 20 mg tablet 20 mg PO DAILY Qty: 90 3RF metoprolol tartrate 50 mg tablet 50 mg PO BID Qty: 180 3RF pantoprazole 40 mg tablet,delayed release (DR/EC) 40 mg PO DAILY Qty: 90 3RF tamsulosin [Flomax] 0.4 mg capsule 0.4 mg PO DAILY 90 Days Qty: 90 3RF tizanidine 4 mg tablet 4 mg PO TID PRN (Reason: muscle spasticity) 90 Days Qty: 270 3RF atorvastatin 40 mg tablet 40 mg PO BEDTIME Qty: 90 3RF hydrocodone-acetaminophen 7.5-325 mg tablet 1 tab PO Q4H PRN (Reason: pain) 30 Days Qty: 180 0RF amlodipine 5 mg tablet 5 mg PO DAILY Qty: 90 3RF mupirocin 2 % ointment 1 applic topical BID Qty: 22 0RF Discharge Orders: Discharge ED (Routine); Ordered 02/12/25 Ordered By: Kyaleigh Brown Referrals: Parker Ashby DO [Primary Care Provider, Family Practice] - 4-7 days Discharge Diet: Advance as tolerated Discharge Activity: Resume usual activity Patient Instructions: Abscess (ED) Print Language: [place] Coding Level of Care Code ED Director Of Corporate Responsibility for Debra Monroe
--- OUTSIDE RECORDS SUMMARY | 2025-02-12 22:38 | XMS_ITS | Encounter Summary ---
Author Organization [facility] Address [address] [place] [address] Care Team Providers Care Director Microbiology Name Role Phone Unavailable Primary Care Provider Unavailabl e Encounter Details Date Type Department Care Team (Late st Contact Info) Description 04/22/2006 Inpatient Historical HIS IN BED Richard Chacon MD [address] [place] [address] Subendo Infrc, Init Episd ([facility]) (Primary Dx) Social History Tobacco Use Types Packs/Day Years Used Date Smoking Tobacco: Never Assessed Sex and Gender Information Value Date Recorded Sex Assigned at Not on file 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 Gender Identity Not on file Sexual Orientation Not on file documented as of this encounter Plan of Treatment Not on file documented as of this encounter Procedures Procedure Name Priority Date/Time Associated Diagnosis Comments PTT Routine 04/23/2006 11:32 PM LYFT DRIVER PTT Routine 04/23/2006 2:40 PM LYFT DRIVER CK TOTAL, RELATIVE INDEX Routine 04/23/2006 9:58 AM LYFT DRIVER CARDIAC ENZYMES Routine 04/23/2006 9:58 AM LYFT DRIVER CK Routine 04/23/2006 9:58 AM LYFT DRIVER PT AND APTT Routine 04/23/2006 6:35 AM LYFT DRIVER CBC WITHOUT DIFFERENTIAL Routine 04/23/2006 6:35 AM LYFT DRIVER BASIC METABOLIC PANEL Routine 04/23/2006 6:35 AM LYFT DRIVER CK TOTAL, RELATIVE INDEX Routine 04/23/2006 4:18 AM LYFT DRIVER CARDIAC ENZYMES Routine 04/23/2006 4:18 AM LYFT DRIVER CK Routine 04/23/2006 4:18 AM LYFT DRIVER CK TOTAL, RELATIVE INDEX Routine 04/22/2006 10:03 PM LYFT DRIVER CARDIAC ENZYMES Routine 04/22/2006 10:03 PM LYFT DRIVER CK Routine 04/22/2006 10:03 PM LYFT DRIVER documented in this encounter Results * (ABNORMAL) PTT (04/23/2006 11:32 PM LYFT DRIVER) PTT 47.7(H) 21.6 - 35.6 Secs INTERFACE SYSTEM Comment: Therapeutic Range: Hi-level PE/DVT heparin protocol 80.1 -95.0 sec Lo-level PE/DVT heparin protocol 67.1 - 80.0 sec Cardiac Heparin Protocol 67.1 - 85.0 sec Neuro Heparin Protocol 67.1 - 80.0 sec As of 04/05/2006 note change in APTT Normal Range. 04/23/2006 11:3 2 PM LYFT DRIVER us Richard Chacon MD HEMATOLOGY ORDERABLES Final R esult INTERFACE SYSTEM Refer to clinic/hospital department * (ABNORMAL) PTT (04/23/2006 2:40 PM LYFT DRIVER) PTT 55.3(H) 21.6 - 35.6 Secs INTERFACE SYSTEM Comment: Therapeutic Range: Hi-level PE/DVT heparin protocol 80.1 -95.0 sec Lo-level PE/DVT heparin protocol 67.1 - 80.0 sec Cardiac Heparin Protocol 67.1 - 85.0 sec Neuro Heparin Protocol 67.1 - 80.0 sec As of 04/05/2006 note change in APTT Normal Range. 04/23/2006 2:40 PM LYFT DRIVER Richard Chacon MD HEMATOLOGY ORDERABLES Final R esult Performing Organization Address [facility] Phone Number INTERFACE SYSTEM Refer to clinic/hospital department * (ABNORMAL) CK TOTAL, RELATIVE INDEX (04/23/2006 9:58 AM LYFT DRIVER) CK-MB CHEMICAL INDEX 12.3(H) 0.0 - 4.5 INTERFACE SYSTEM 04/23/2006 9:58 AM LYFT DRIVER Alessio Silvestre MD CHEMISTRY ORDERABLES Final Res ult Performing Organization Address [facility] Phone Number INTERFACE SYSTEM Refer to clinic/hospital department * (ABNORMAL) CK (04/23/2006 9:58 AM LYFT DRIVER) CK 554(H) 38 - 174 U/L INTERFACE SYSTEM Comment: As of 05 the [facility] has changed testing methods. The new reference ranges are Males 38-174 Females 26-140 The old referance ranges were Males 0-155 Females 0-133 04/23/2006 9:58 AM LYFT DRIVER Alessio Silvestre MD CHEMISTRY ORDERABLES Final Res ult Performing Organization Address [facility] Phone Number INTERFACE SYSTEM Refer to clinic/hospital department * (ABNORMAL) CARDIAC ENZYMES (04/23/2006 9:58 AM LYFT DRIVER) CKMB 68.3(H) 0.0 - 5.0 ng/mL INTERFACE SYSTEM TROPONIN I 17.9(AA) 0.0 - 1.5 ng/mL INTERFACE SYSTEM Comment: Potentially critical/toxic troponin called by bobby spence, with verbal read back, at 04/23/2006 11:01. 04/23/2006 9:58 AM LYFT DRIVER us Alessio Silvestre MD CHEMISTRY ORDERABLES Final Res ult Performing Organization Address [facility] Phone Number INTERFACE SYSTEM Refer to clinic/hospital department * (ABNORMAL) CBC WITHOUT DIFFERENTIAL (04/23/2006 6:35 AM LYFT DRIVER) WBC 6.9 4.8 - 10.8 K/ul INTERFACE SYSTEM RBC 4.08(L) 4.60 - 6.20 Mil/ul INTERFACE SYSTEM HEMOGLOBIN 12.8(L) 14.0 - 18.0 g/dL INTERFACE SYSTEM HEMATOCRIT 36.6(L) 41.0 - 53.0 % INTERFACE SYSTEM MCV 89.7 84.0 - 103.0 Fl INTERFACE SYSTEM MCH 31.4 27.0 - 34.0 pg INTERFACE SYSTEM MCHC 35.0 30.0 - 35.0 g/dL INTERFACE SYSTEM RDW 13.5 11.0 - 14.5 % INTERFACE SYSTEM PLATELETS 265 140 - 440 K/ul INTERFACE SYSTEM MPV 10.5 8.9 - 12.8 Fl INTERFACE SYSTEM NEUTROPHILS 55.5 42.2 - 75.2 % INTERFACE SYSTEM LYMPHOCYTES 33.6 24.0 - 44.0 % INTERFACE SYSTEM MONOCYTES 8.0 2.0 - 10.0 % INTERFACE SYSTEM EOSINOPHILS 2.5 0.0 - 7.0 % INTERFACE SYSTEM BASOPHILS 0.4 0.0 - 1.0 % INTERFACE SYSTEM NEUTROPHIL ABSOLUTE 3.8 2.0 - 8.0 K/uL INTERFACE SYSTEM LYMPHOCYTE ABSOLUTE 2.3 1.2 - 4.0 K/ul INTERFACE SYSTEM MONOCYTE ABSOLUTE 0.6 0.1 - 0.6 K/ul INTERFACE SYSTEM EOSINOPHIL ABSOLUTE 0.2 0.0 - 0.7 K/ul INTERFACE SYSTEM BASOPHILS ABSOLUTE 0.0 0.0 - 0.2 K/ul INTERFACE SYSTEM 04/23/2006 6:35 AM LYFT DRIVER us Richard Chacon MD HEMATOLOGY ORDERABLES Final R esult INTERFACE SYSTEM Refer to clinic/hospital department * (ABNORMAL) PT AND APTT (04/23/2006 6:35 AM LYFT DRIVER) PROTIME 15.0 13.0 - 15.7 Secs INTERFACE SYSTEM Comment: As of 06 note change in normal range. INR 1.1 INTERFACE SYSTEM Comment: Expected Values for INR: DVT/PE Goal INR 2.5; range 2.0 - 3.0 Valve Replacement Tissue Goal INR 2.5; range 2.0 - 3.0 Mechanical Goal INR 3.0; range 2.5 - 3.5 POST-VT Goal INR 2.5; range 2.0 - 3.0 or Goal 3.0; range 2.5 - 3.5 Atrial Fibrillation Goal INR 2.5; range 2.0 - 3.0 Ischemic Stroke Goal INR 2.5; range 2.0 - 3.0 For additional information see Guidelines for Anticoagulation available from the pharmacy Melissa Hollingsworth PTT 71.1(H) 21.6 - 35.6 Secs INTERFACE SYSTEM Comment: Therapeutic Range: Hi-level PE/DVT heparin protocol 80.1 -95.0 sec Lo-level PE/DVT heparin protocol 67.1 - 80.0 sec Cardiac Heparin Protocol 67.1 - 85.0 sec Neuro Heparin Protocol 67.1 - 80.0 sec As of 04/05/2006 note change in APTT Normal Range. 04/23/2006 6:35 AM LYFT DRIVER Richard Chacon MD HEMATOLOGY ORDERABLES Final R esult Performing Organization Address [facility] Co de Phone Number INTERFACE SYSTEM Refer to clinic/hospital department * (ABNORMAL) BASIC METABOLIC PANEL (04/23/2006 6:35 AM LYFT DRIVER) GLUCOSE 120(H) 70 - 110 mg/dL INTERFACE SYSTEM BUN 20 9 - 20 mg/dL INTERFACE SYSTEM CREATININE 0.8 0.7 - 1.5 mg/dL INTERFACE SYSTEM SODIUM 139 136 - 145 mEq/L INTERFACE SYSTEM POTASSIUM 3.8 3.5 - 5.0 mEq/L INTERFACE SYSTEM CHLORIDE 109 95 - 110 mEq/L INTERFACE SYSTEM CO2 24 22 - 32 mmol/l INTERFACE SYSTEM ANION GAP 10 9 - 20 mEq/L INTERFACE SYSTEM OSMOLALITY, CALCULATED 289 275 - 295 mOsm/Kg INTERFACE SYSTEM CALCIUM 9.8 8.4 - 10.5 mg/dL INTERFACE SYSTEM 04/23/2006 6:35 AM LYFT DRIVER Richard Chacon MD CHEMISTRY ORDERABLES Final Re sult Performing Organization Address [facility]/ZIP Co de Phone Number INTERFACE SYSTEM Refer to clinic/hospital department * (ABNORMAL) CK TOTAL, RELATIVE INDEX (04/23/2006 4:18 AM LYFT DRIVER) CK-MB CHEMICAL INDEX 12.4(H) 0.0 - 4.5 INTERFACE SYSTEM 04/23/2006 4:18 AM LYFT DRIVER us Alessio Silvestre MD CHEMISTRY ORDERABLES Final Res ult Performing Organization Address [facility] Phone Number INTERFACE SYSTEM Refer to clinic/hospital department * (ABNORMAL) CK (04/23/2006 4:18 AM LYFT DRIVER) CK 437(H) 38 - 174 U/L INTERFACE SYSTEM Comment: As of 05 the [facility] has changed testing methods. The new reference ranges are Males 38-174 Females 26-140 The old referance ranges were Males 0-155 Females 0-133 04/23/2006 4:18 AM LYFT DRIVER us Alessio Silvestre MD CHEMISTRY ORDERABLES Final Res ult Performing Organization Address [facility] Phone Number INTERFACE SYSTEM Refer to clinic/hospital department * (ABNORMAL) CARDIAC ENZYMES (04/23/2006 4:18 AM LYFT DRIVER) CKMB 54.3(H) 0.0 - 5.0 ng/mL INTERFACE SYSTEM TROPONIN I 10.3(AA) 0.0 - 1.5 ng/mL INTERFACE SYSTEM Comment: Potentially critical/toxic TROP called by SGM to ELLY, with verbal read back, at 04/23/2006 05:30. 04/23/2006 4:18 AM LYFT DRIVER us Alessio Silvestre MD CHEMISTRY ORDERABLES Final Res ult Performing Organization Address [facility] Phone Number INTERFACE SYSTEM Refer to clinic/hospital department * (ABNORMAL) CK TOTAL, RELATIVE INDEX (04/22/2006 10:03 PM LYFT DRIVER) CK-MB CHEMICAL INDEX 11.2(H) 0.0 - 4.5 INTERFACE SYSTEM 04/22/2006 10:0 3 PM LYFT DRIVER us Alessio Silvestre MD CHEMISTRY ORDERABLES Final Res ult Performing Organization Address [facility] Phone Number INTERFACE SYSTEM Refer to clinic/hospital department * (ABNORMAL) CK (04/22/2006 10:03 PM LYFT DRIVER) CK 283(H) 38 - 174 U/L INTERFACE SYSTEM Comment: As of 05 the [facility] has changed testing methods. The new reference ranges are Males 38-174 Females 26-140 The old referance ranges were Males 0-155 Females 0-133 04/22/2006 10:0 3 PM LYFT DRIVER us Alessio Silvestre MD CHEMISTRY ORDERABLES Final Res ult Performing Organization Address [facility] Phone Number INTERFACE SYSTEM Refer to clinic/hospital department * (ABNORMAL) CARDIAC ENZYMES (04/22/2006 10:03 PM LYFT DRIVER) CKMB 31.6(H) 0.0 - 5.0 ng/mL INTERFACE SYSTEM TROPONIN I 2.4(AA) 0.0 - 1.5 ng/mL INTERFACE SYSTEM Comment: Potentially critical/toxic TROP called by SGM to YULIANA, with verbal read back, at 04/22/2006 23:06. 04/22/2006 10:0 3 PM LYFT DRIVER us Alessio Silvestre MD CHEMISTRY ORDERABLES Final Res ult Performing Organization Address [facility] Phone Number INTERFACE SYSTEM Refer to clinic/hospital department documented in this encounter Visit Diagnoses Diagnosis Acute myocardial infarction, subendocardial infarction, initial episode of care- Primary documented in this encounter
--- OUTSIDE RECORDS SUMMARY | 2025-02-12 22:38 | XMS_ITS | Clinical Summary ---
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
--- OUTSIDE RECORDS SUMMARY | 2025-02-12 22:38 | XMS_ITS | Clinical Summary ---
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 01/17/2024 Active polyethylene glycol (MIRALAX) 17 gram Powder in Packet Take 1 Packet (17 Grams) by mouth 1 time daily as needed for Constipation . 01/17/2024 Active amLODIPine (NORVASC) 5 mg tablet Take 1 Tablet (5 mg) by mouth daily. 30 Tablet 01/21/2024 Active doxycycline hyclate (VIBRAMYCIN) 100 mg capsule Take 100 mg by mouth 2 times daily. Active HYDROcodone-shalom taminophen (NORCO) 5-325 mg tablet TAKE ONE TABLET BY MOUTH EVERY 4 HOURS NEEDED FOR pain. do not exceed 3 TABLETS in 24 hours. 06/04/2024 Active coenzyme Q10 Capsule Take 10 mg by mouth daily. 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 Uncontrolled hypertension 01/13/2024 Encounters Date Type Department Care Team Description 12/30/2024 External Device Data [facility] ABSTRACTION Provider, Abstract 12/30/2024 External Device Data [facility] ABSTRACTION Provider, Abstract from Last 3 Months Family History Medical History Relation Name Comments No Known Problems Father No Known Problems Mother Relation Name Status Comments Brother Unknown Father Mother Social History Tobacco Use Types Packs/Day Years Used Date Smoking Tobacco: Every Day Cigarettes Smokeless Tobacco: Never Tobacco Cessation:Ready to Q uit: Not Asked; Counseling Given: Not Answered Alcohol Use Standard Drinks/Week Comments Not Currently 0 (1 standard drink = 0.6 oz pur e alcohol) Feeling Safe Answer Date Recorded Are you in a relationship wi th someone who hurts you emotionally and/or physically? No 01/17/2024 Food Insecurity Answer Date Recorded Patient needs follow up regardin 09/01/2024 Transportation Needs Answer Date Record ed Patient needs follow up regardin 09/01/2024 Housing Stability Answer Date Recorded Social/Environmental Concerns No concerns Utility Needs Answer Date Recorded Patient needs follow up regardin 09/01/2024 Sex and Gender Information Value Date Recorded Sex Assigned at Not on file Legal Sex Male 2:41 AM P[employer] LOAD AND UNLOAD Gender Identity Not on file Sexual Orientation Not on file Last Filed Vital Signs Vital Sign Reading Time Taken Comments Blood Pressure 118/68 07/02/2024 10:04 AM [employer] Pulse 64 07/02/2024 10:04 AM [employer] Temperature 36.4 C (97.5 F) 01/20/2024 2:13 AM CDT Respiratory Rate 16 07/02/2024 10:04 AM [employer] UNLOAD Oxygen Saturation 93% 07/02/2024 10:04 AM [employer] LO[employer] AND UNLOAD Inhaled Oxygen Concentration - - Weight 68.3 kg (150 lb 9.6 oz) 07/02/2024 10:04 AM [employer] LO[employer] UNLOAD Height 170.2 cm (5' 7 ) 01/17/2024 7:31 PM CDT Body Mass Index 23.59 01/17/2024 7:31 PM CDT Plan of Treatment Health Maintenance Due Date Last Done Comments DTAP/TDAP/TD VACCINES (1 - Tdap) 1964 PNEUMOCOCCAL VACCINE 50+ YEA RS (1 of 2 - PCV) 1964 ZOSTER VACCINE (1 of 2) 12/14/1995 RSV VACCINE (60+ or ) (1 - 1-dose 75+ series) 2020 INFLUENZA VACCINE (#1) 2024 COVID-19 Vaccine ( season) 2024, 06/29/2020 Insurance MEDICAID [facility] DUAL COMPLETE HMO [facility] [id number] Advance Directives For more information, please contact: [phone] Documents on File Type Date Recorded Patient Video Effects Editor Expl anation Advance Directive POA 01/13/2024 10:10 PM Advance Directive POA * NO CPR (In Event of Cardiopulmonary Arrest) (Latest Code Status on File) Date Activated Date Inactivated Comments 01/17/2024 7:00 PM 01/20/2024 2:33 PM Question Answer Comments Mechanical Ventilation (for respiratory distress) - Invasive (i.e. intubation): No Mechanical Ventilation (for respiratory distress) - Non-Invasive (i.e. BiPAP, CPAP): Yes * NO CPR (In Event of Cardiopulmonary Arrest) Date Activated Date Inactivated Comments 01/14/2024 10:36 AM 01/17/2024 6:29 PM Question Answer Comments Mechanical Ventilation (for respiratory distress) - Invasive (i.e. intubation): No Mechanical Ventilation (for respiratory distress) - Non-Invasive (i.e. BiPAP, CPAP): Yes * Default Full Code - Needs Discussion Date Activated Date Inactivated Comments 01/13/2024 10:06 PM 01/14/2024 10:36 AM
== END 2025-02-12 23:20 | disposition home or self-care (01) ==
PROVIDERS: Emergency Provider Emergency Medicine; PCP Family Medicine
DX: L02.212 Cutaneous abscess of back [any part, except buttock and flank] (principal); Z79.01 Long term (current) use of anticoagulants; Z72.0 Tobacco use; E78.5 Hyperlipidemia, unspecified; I25.10 Atherosclerotic heart disease of native coronary artery without angina pectoris; I11.0 Hypertensive heart disease with heart failure; I50.9 Heart failure, unspecified
CPT/HCPCS: 10060; 99283; J9999